=== PATIENT | female | born 1945 | race Caucasian/White ===

== ENCOUNTER → 2016-11-05 | Outpatient (CLI) | payer MEDICARE ==
[2015-10-19 08:27] VITALS: BP 138/85
[~2016-11-05] MED LIST: ATOR40TA59 PO; LISI10TA2 PO; MELO15TA23 PO; METF500T PO; METO-239 PO; SPIR25TA3 PO; TRAM50TA PO; VITA100022 PO
--- NOTE | 2016-11-05 16:38 | CARD ---
APPROVED REPORT EXAM: Two-dimensional and M-mode echocardiogram with Doppler and color Doppler. Other Information Quality : Average Rhythm : NSR with ectopy INDICATION Fatigue Congestive Heart Failure 2D DIMENSIONS RVDd2.4 (2.9-3.5cm)Left Atrium(2D)4.3 (1.6-4.0cm) IVSd0.9 (0.7-1.1cm)Aortic Root(2D)3.0 (2.0-3.7cm) LVDd5.1 (3.9-5.9cm)LVOT Diameter2.0 (1.8-2.4cm) PWd1.0 (0.7-1.1cm)LVDs4.4 (2.5-4.0cm) SV33.9 mlLVEF(%)40.0 (>50%) Aortic Valve AoV Peak Raymundo.108.4cm/sAoV VTI23.7cm AO Peak GR.4.7mmHgLVOT Peak Raymundo.74.5cm/s LVOT VTI 18.34cmAO Mean GR.3mmHg GALI (VMAX)2.03kd2SVX (VTI)2.50cm2 Mitral Valve MV E Ahuxycwf14.8cm/sMV DECEL WIFG774gl MV A Pqrothsj27.6cm/sMV E Mean Gr.2mmHg MV RLJ30grG/A Ratio1.0 MV A Cduqesus493iiDEH (PHT)4.02cm2 TDI E/Lateral E'8.7E/Medial E'13.8 Tricuspid Valve TR P. Aibeihhc061fp/sRAP JQVKIFFO7dhXj TR Peak Gr.89cnFrKHZU94pcDy Pulmonary Vein S1 Ddglkzwr94.8cm/sD2 Mquahvmp05.9cm/s LEFT VENTRICLE The left ventricle is normal size. There is normal left ventricular wall thickness. Left ventricle sy stolic function is mildly impaired. The Ejection Fraction is 40%. Septal motion consistent with post- operative state. Tissue Doppler imaging reveals moderate left ventricular diastolic dysfunction. Ther e is no ventricular septal defect visualized. RIGHT VENTRICLE The right ventricle is normal size. The right ventricular systolic function is normal. ATRIA The left atrium is borderline dilated. The right atrium size is normal. The interatrial septum is int act with no evidence for an atrial septal defect or patent foramen ovale as noted on 2-D or Doppler i maging. AORTIC VALVE The aortic valve is calcified but opens well. The aortic valve is trileaflet. Doppler and Color Flow revealed no significant aortic regurgitation. There is no significant aortic valvular stenosis. MITRAL VALVE Mitral annular calcification is mild. There is no mitral valve stenosis. Doppler and Color Flow revea led mild mitral regurgitation. TRICUSPID VALVE The tricuspid valve is not well visualized. Doppler and Color Flow revealed mild tricuspid regurgitat ion. The PA pressure was estimated at 33 mmHg. There is no tricuspid valve stenosis. PULMONIC VALVE The pulmonic valve is not well visualized. Doppler and Color Flow revealed no pulmonic valvular regur gitation. There is no pulmonic valvular stenosis. GREAT VESSELS The aortic root is normal in size. Normal pulmonary venous flow (Doppler). The IVC is normal in size and collapses >50% with inspiration. PERICARDIAL EFFUSION There is no evidence of significant pericardial effusion. Critical Notification Critical Value: No <Conclusion> Left ventricle systolic function is mildly impaired. The Ejection Fraction is 40%. The left atrium is borderline dilated. The right atrium size is normal. The aortic valve is calcified but opens well. The aortic valve is trileaflet. Doppler and Color Flow revealed mild mitral regurgitation. Mitral annular calcification is mild. Doppler and Color Flow revealed mild tricuspid regurgitation. The PA pressure was estimated at 33 mmHg. The pulmonic valve is not well visualized. There is no evidence of significant pericardial effusion.
== END | disposition home or self-care (01) ==
LOC: ECHO 13:37
PROVIDERS: ATTEND Internal Medicine Cardiovascular Disease
DX: I08.1 Rheumatic disorders of both mitral and tricuspid valves (principal); I50.9 Heart failure, unspecified; I25.10 Atherosclerotic heart disease of native coronary artery without angina pectoris; R53.83 Other fatigue; R53.1 Weakness; Z86.79 Personal history of other diseases of the circulatory system; Z95.1 Presence of aortocoronary bypass graft
CPT/HCPCS: 93306

== ENCOUNTER → 2017-03-10 | Outpatient (CLI) | payer MEDICARE ==
[2017-03-10] MEDS: IOHEXOL 300 MG/ML 100ML VIAL. IV ×2 (09:05)
[2017-03-10] MEDS: IOHEXOL 240 MG/ML 50ML VIAL. PO ×2 (09:05)
== END | disposition home or self-care (01) ==
LOC: NM 07:22
DX: C79.51 Secondary malignant neoplasm of bone (principal); I70.0 Atherosclerosis of aorta; K57.30 Diverticulosis of large intestine without perforation or abscess without bleeding; I10 Essential (primary) hypertension; R91.8 Other nonspecific abnormal finding of lung field; R91.1 Solitary pulmonary nodule; Z85.3 Personal history of malignant neoplasm of breast; Z87.891 Personal history of nicotine dependence
CPT/HCPCS: 71260; 74177; 78306; 96374; A9503; Q9966; Q9967

== ENCOUNTER → 2017-05-25 | Outpatient (CLI) | payer MEDICARE | END | disposition home or self-care (01) | LOC: US 13:13 | DX: M79.89 Other specified soft tissue disorders (principal) | CPT/HCPCS: 93971 ==

== ENCOUNTER → 2017-11-05 | Outpatient (CLI) | payer MEDICARE ==
[2015-10-19 08:27] VITALS: BP 138/85
[~2017-11-05] MED LIST changes: +HYDR-2766 PO; +IOHEXOL 240 MG/ML 50ML VIAL. PO ONE; +IOHEXOL 300 MG/ML 100ML VIAL. IV ONE; +LETR2.5T18 PO; +PANT40TA5 PO; -SPIR25TA3 PO; +SPIR25TA5 PO
--- NOTE | 2017-11-05 16:06 | KCIC ---
Bone densitometry 11/05/2017 10:00 AM Indication: Long-term aromatase inhibitor use. History of osseous metastasis. Breast cancer. . Comparison Study: CT of the abdomen and pelvis March 10, 2017 Discussion: Bone Densitometry was performed with dual photon absorption of the lumbar spine and left proximal femur Lumbar Spine: Bone average density is 1.526 g/cm2 for L1-L4. T-Score is 4.4. (Note that prior imaging studies demonstrate multifocal sclerotic metastasis within the lumbar spine. This could falsely elevated measurement of bone mineral density. Left femoral neck: Bone average density is 1.037g/cm2. T-Score is 0.8. IMPRESSION: Normal bone mineral density measurements. Measurements of the lumbar spine may be falsely elevated as described above. Note: Definitions established by the World Health Organization: Normal: T-score is -1.0 or above. Osteopenia: T-score is between -1.0 and -2.5. Osteoporosis: T-score is -2.5 or below. Electronically signed by: Gianluca Miranda MD (11/05/2017 4:02 PM) [id number]
--- NOTE | 2017-11-05 16:41 | KCIC ---
CT chest abdomen pelvis without contrast Indication: Metastatic breast cancer Technique: Noncontrast CT imaging was performed of the chest, abdomen, pelvis, multiplanar reconstruction images submitted. Oral contrast was given. One or more of the following individualized dose reduction techniques were utilized for this examination: 1. Automated exposure control 2. Adjustment of the mA and/or kV according to patient size 3. Use of iterative reconstruction technique. Contrast: None-patient declined further attempts to obtain intravenous access after first IV failed. Comparison: March 10, 2017 CHEST: Findings: There is again coronary calcification. There has been median sternotomy. There is small hiatal hernia mostly containing fat. There is similar size of right pretracheal node about 1.1 cm short axis dimension, some other small mediastinal nodes also similar. No new obvious abnormality is identified of the thyroid gland. There is no new axillary lymphadenopathy. There is no pleural or pericardial effusion or pneumothorax. Major airways are patent. Focus of subsolid left upper lobe density axial images 21 and 22 is unchanged, more solid component about 0.7 cm transverse. Left lower lobe subpleural nodularity axial images 29 up to about 1 cm in size is stable. Another focus of left lower lobe nodularity extending to the pleural surface best seen axial image 30 about 2 about 1.9 cm transverse by 1.5 cm AP is overall similar. 0.7 cm focus of nodularity in the right middle lobe axial image 33 is unchanged. No new lung nodularity is identified. There is scattered plaque of the thoracic aorta. There is multifocal mostly sclerotic appearing bony metastatic disease of the spine most notable such as at T8-L3 as seen previously. There is also some involvement of the ribs. IMPRESSION: 1. Findings are similar to February 2017 exam, similar foci of pulmonary nodularity and unchanged size of somewhat enlarged right pretracheal node. There is again osseous metastatic disease. Abdomen and pelvis: FINDINGS: Evaluation of the abdominal visceral organs is limited without intravenous contrast, no new obvious abnormality of the liver, spleen, pancreas. There is unchanged fullness of the left adrenal gland. There is no renal calculus or hydronephrosis. Gallbladder is present without obvious intraluminal abnormality by CT. Bowel is not dilated. There is no free air or free fluid. There is no new significant lymphadenopathy. There is colonic diverticulosis greatest of the sigmoid colon without associated inflammatory change. There is no new significant inguinal lymphadenopathy. There is plaque of the abdominal aorta, slightly relatively ectatic more distal abdominal aorta about 2.8 cm. There is degree of stenosis of the more distal abdominal aorta due to plaque, also likely significant stenosis near the origin of the right common iliac artery. There is multilevel lumbar facet hypertrophic change. There are again findings of osseous metastatic disease. Degree of compression deformity superiorly of L5, L2, L1 is similar. IMPRESSION: 1. Findings are overall stable compared with February 2017 exam allowing for no intravenous contrast. There is unchanged mild fullness of the left adrenal gland. There are again findings of osseous metastatic disease. 2. There is likely more significant stenosis near the right celiac artery origin, also stenosis of the disc abdominal aorta and also relative ectasia of the distal abdominal aorta. Electronically signed by: Gregor Tinajero MD (11/05/2017 4:37 PM) [facility]
== END | disposition home or self-care (01) ==
LOC: KCIC CT 08:19
PROVIDERS: ATTEND Internal Medicine Hematology & Oncology
DX: C78.00 Secondary malignant neoplasm of unspecified lung (principal); I77.811 Abdominal aortic ectasia; K57.30 Diverticulosis of large intestine without perforation or abscess without bleeding; I11.0 Hypertensive heart disease with heart failure; I50.9 Heart failure, unspecified; E11.9 Type 2 diabetes mellitus without complications; E78.5 Hyperlipidemia, unspecified; J44.9 Chronic obstructive pulmonary disease, unspecified; M81.0 Age-related osteoporosis without current pathological fracture; I25.10 Atherosclerotic heart disease of native coronary artery without angina pectoris; Z86.718 Personal history of other venous thrombosis and embolism; Z85.3 Personal history of malignant neoplasm of breast; Z86.79 Personal history of other diseases of the circulatory system; Z87.891 Personal history of nicotine dependence; Z82.49 Family history of ischemic heart disease and other diseases of the circulatory system; Z83.3 Family history of diabetes mellitus
CPT/HCPCS: 71250; 74176; 77080; 82565; Q9966

== ENCOUNTER → 2017-11-30 | Outpatient (CLI) | payer MEDICARE ==
[2015-10-19 08:27] VITALS: BP 138/85
[~2017-11-30] MED LIST changes: +CALC-299 PO; +IOHEXOL 180 MG/ML 10 ML VIAL. ONE; -IOHEXOL 240 MG/ML 50ML VIAL. PO ONE; -IOHEXOL 300 MG/ML 100ML VIAL. IV ONE; +LIDOCAINE 1% PF 2 ML VIAL. ONE; +methylPREDNISolone ACETATE 40 MG/ML VIAL. ONE; +methylPREDNISolone ACETATE 80 MG/ML VIAL. ONE
--- NOTE | 2017-11-30 18:09 | PAIN ---
DATE OF SERVICE: 11/30/2017 INITIAL CONSULTATION FOR PAIN CLINIC CHIEF COMPLAINT: Low back and left lower extremity pain. HISTORY OF PRESENT ILLNESS: This is a 72-year-old female who presents with history of pain in the low back and left lower extremity since about 10/2015. The patient reports she had a compression fracture at that time, also had been diagnosed with breast cancer back in about 2006 and was having fairly consistent followups with bone scans and MRIs of the spine and they found a compression fracture, which was not treated aggressively as it was not significant enough to do a vertebroplasty or kyphoplasty on. The patient has had pain in her low back for at least 2 years now radiating to the left lower extremity, mostly in the posterior gluteus, posterior thigh, posterior calf and posterior lower leg into the foot as well. The patient reports it is worse with standing, walking, changing positions. She states she only walk for about 20 minutes at a time, had to sit down and rest, which did relieve the pain after about 5 minutes. She can get up and start the process again. The patient reports it is better with sitting, lying down, does not awaken her from sleep at night, significantly. The patient reports it does not affect her bowel or bladder control, but does affect her ability to walk. She is not using any assistive devices to ambulate. The patient did have MRI scan of the lumbar spine, most recently dated 11/2016 showing diffuse osseous metastatic disease without acute compression fracture, acute spondylolisthesis, multilevel lumbar spondylosis with at least moderate central spinal canal stenosis at L5-S1, grade 1 anterolisthesis at L5 on S1 with lumbarization of S1 vertebral body resulting in transitional sacral anatomy. The L4-L5 shows diffuse disk bulge with severe bilateral arthrosis, bilateral subarticular zone stenosis and moderate medial bilateral neural foraminal stenosis due to foraminal disk bulging, at L5-S1 shows bilateral facet arthrosis severe as well with mild diffuse disk bulge, moderate right and moderate to severe medial left neural foraminal stenosis. The patient reports no loss of motor function with significant fatigability of the left lower extremity with ambulation. The patient reports a disability rate from 0-10, 10 being the worst, a 10 with family and home responsibilities, recreation, occupation, 1 with social activity, 4 with self care and 0 with life support activities. The patient has tried physical therapy in the past, stretching and strengthening exercises as well as hydrocodone, which does help, but only for about 2-3 hours. PAST MEDICAL HISTORY: Significant for type 2 diabetes, hypertension, shortness of breath, breast cancer and arthritis. PREVIOUS SURGERY: Include left breast tumor excision, coronary artery bypass in 2006 and tubal ligation. CURRENT MEDICATIONS: Include hydrocodone, atorvastatin, lisinopril, Glucophage, metoprolol, calcium, spironolactone and Meloxicam. ALLERGIES: THE PATIENT IS ALLERGIC TO CODEINE. FAMILY HISTORY: Significant for heart disease. SOCIAL HISTORY: The patient does not drink alcohol, does not smoke, does not use any illegal, illicit or recreational drugs. She is with one child, living at home, lives locally in [place], [place]. REVIEW OF SYSTEMS: The patient's review of systems is positive for those items mentioned in history of present illness. All systems reviewed and otherwise negative. It is complete, full and well documented on the patient's chart. PHYSICAL EXAMINATION: VITAL SIGNS: The patient's blood pressure is 161/93, pulse 103, respirations 20, temperature 98.2 degrees Fahrenheit, height is 5 feet 3 inches, weight is 254 pounds. GENERAL: The patient is awake, alert, oriented, appropriate, very pleasant demeanor. HEENT: Head shows normocephalic, atraumatic. Extraocular movements intact and symmetrical. Oral cavity: Mucous membranes moist and pink. Dentition is intact. NECK: Shows anterior throat supple without palpable lymphadenopathy noted. Swallow reflex symmetrical. CHEST: Shows normal on inspection. Breath sounds clear to auscultation bilaterally. HEART: Shows S1, S2 clear. No murmurs auscultated. ABDOMEN: Soft, nontender, nondistended. No palpable organomegaly is noted. No rebound or guarding demonstrated. BACK: Shows spine grossly in the midline. Normal appearing thoracic kyphosis, slight flattening of lumbar lordotic curvature. Lumbar paraspinous muscle shows symmetrical on inspection, on palpation shows some moderate tenderness only diffusely in the bilateral paraspinous musculature, but only diffusely in the low lumbar distribution without radiation, without trigger points, without atrophy, hypertrophy. The patient shows good rotational motion of lumbar spine, both laterally greater than 10 degrees right and left as well as extension greater than 10 degrees, forward flexion 45 degrees without significant pain reported. EXTREMITIES: The patient's lower extremities show deep tendon reflexes at 1+/4 in the patellar and tendo calcaneus tendons are equal. Motor exam is strong with approximately 4 on a scale of 5, but equal and symmetrical dorsiflexion, extension, quadriceps and hamstring flexion. Peripheral pulses are 1+ posterior tibial and dorsalis pedis pulses. No peripheral edema is noted bilaterally. Lower extremities are warm and dry to touch, equal in color and appearance. Straight leg raising noted to be negative bilaterally. Again, Gaenslen's and Tal's maneuvers are negative bilaterally as well. She is able to stand, stand on her toes without difficulty or loss of balance, walks with a slight shuffling gait, does not appear to favor her right or left lower extremity; however, not using any assistive devices to ambulate. The patient's skin shows warm, dry, good turgor. No edema. No sores, rashes or bruising. IMPRESSION: This is a 72-year-old female with, 1. Approximately 2-year history of increasing pain in low back, left lower extremity in a radicular fashion. 2. MRI scan of lumbar spine as noted. 3. History of breast cancer. 4. Hypertension. 5. Diabetes. 6. Arthritis. PLAN: Options were discussed with the patient including conservative medical management, physical therapy, interventional techniques. She would like to pursue interventional techniques. We discussed a lumbar epidural steroid injection using description as well as anatomical models to describe the procedure. Risks were then discussed including, but not limited to bleeding, infection, possibility of epidural hematoma, subsequent neurologic compromise, dural puncture, headaches, spinal cord and/or nerve damage, side effects of steroid medication and poor results regarding pain control. The patient understands and wished to proceed. The patient will return to clinic in approximately 2 weeks for followup. She was counseled on her return appointment, activity level and side effects to be aware of. DIAGNOSES: Lumbar radiculopathy with lumbar spinal stenosis, lumbar degenerative disk disease. PROCEDURE: Lumbar epidural steroid injection, translaminar approach L5-S1 level using C-arm fluoroscopic guidance under sterile prep and drape using local anesthetic. MEDICATION INJECTED: A total of 120 mg Depo-Medrol plus 10 mL of preservative-free normal saline and 2 mL of Isovue for contrast. CONDITION AT DISCHARGE: Stable. The patient tolerated the procedure well, had no complications. ILEANA COON MD DR: JENNIFER/brock JOB#: [id number] / [id number] SNEHA Ferris MD
== END | disposition home or self-care (01) ==
LOC: PNCL 10:00
PROVIDERS: ATTEND Anesthesiology
DX: M51.16 Intervertebral disc disorders with radiculopathy, lumbar region (principal); M48.061 Spinal stenosis, lumbar region without neurogenic claudication; I10 Essential (primary) hypertension; E11.9 Type 2 diabetes mellitus without complications; M19.90 Unspecified osteoarthritis, unspecified site; Z85.3 Personal history of malignant neoplasm of breast; Z98.51 Tubal ligation status; Z95.1 Presence of aortocoronary bypass graft; Z98.890 Other specified postprocedural states; Z79.899 Other long term (current) drug therapy; Z79.84 Long term (current) use of oral hypoglycemic drugs; Z88.5 Allergy status to narcotic agent
CPT/HCPCS: 62323; J1030; J1040; Q9965

== ENCOUNTER → 2018-05-02 | Outpatient (CLI) | payer MEDICARE ==
[2018-02-02 11:00] VITALS: BP 151/69
[~2018-05-02] MED LIST changes: +APIX5TAB PO; +ASPI-630 PO; +CEPH-264 PO; +DIGO125T PO; +DILT180C2 PO; +FEMARA2.5 MG PO; -HYDR-2766 PO; +HYDR-2769 PO; -IOHEXOL 180 MG/ML 10 ML VIAL. ONE; +IOHEXOL 240 MG/ML 50ML VIAL. PO ONE; +IOHEXOL 300 MG/ML 100ML VIAL. IV ONE; -LETR2.5T18 PO; -LIDOCAINE 1% PF 2 ML VIAL. ONE; +METO-247 PO; +SPIR50TA4 PO; +WARF-78 PO; -methylPREDNISolone ACETATE 40 MG/ML VIAL. ONE; -methylPREDNISolone ACETATE 80 MG/ML VIAL. ONE
--- NOTE | 2018-05-02 12:08 | RAD ---
CT of the chest, abdomen and pelvis with contrast, 05/02/2018: History: Follow-up left breast cancer with metastases Multidetector CT imaging was performed following oral and IV administration of contrast. Comparison is made to a study from 11/05/2017. There has been a previous median sternotomy. There is moderate calcific plaquing of the thoracic aorta and its branches including the coronary arteries. There is a mildly prominent right paratracheal lymph node measuring 1.1 cm in short axis dimension. It is of similar size when compared to the previous study. No new mediastinal adenopathy is seen. There is no evidence of axillary or internal mammary adenopathy. There are several linear and groundglass opacities in both lungs, similar to those seen on the previous exam. The most prominent opacity lies posterolaterally in the superior segment of the left lower lobe abutting the pleura. It measures 14-15 mm in greatest diameter and has shown no definite change. There is no evidence of pleural fluid. No hepatic mass is identified. The gallbladder is unremarkable. No pancreatic mass is seen. The spleen is of normal size. A small peripheral low-density lesion in the posterolateral aspect of the right kidney is probably a cyst. The kidneys show no evidence of obstruction. Mild left adrenal thickening appears unchanged. There is moderate calcific plaquing of the abdominal aorta with slight dilatation of the infrarenal aorta which measures 2.8 cm in AP diameter. No abdominal or pelvic adenopathy is seen. Colonic diverticulosis is present, most extensive in the sigmoid region. No paracolonic inflammatory process is seen. The bowel loops are not dilated. No free fluid or free air is evident in the abdomen or pelvis. There are mixed lytic and sclerotic changes in the bones which are most evident in the spine. The majority of these findings appear stable. The lytic component involving the posterior aspect of approximately the T10 vertebral body has worsened slightly. There are also moderate scattered degenerative changes. IMPRESSION: 1. Multifocal mixed lytic and blastic osseous metastatic disease with slight progression at the T10 level as described above. 2. Stable scattered pulmonary opacities and borderline mediastinal adenopathy. 3. Unchanged mild prominence of left adrenal gland. 4. No new abdominal or pelvic abnormality is detected. PQRS Compliance Statement: One or more of the following individualized dose reduction techniques were utilized for this examination: 1. Automated exposure control 2. Adjustment of the mA and/or kV according to patient size 3. Use of iterative reconstruction technique
== END | disposition home or self-care (01) ==
LOC: CT 07:56
PROVIDERS: ATTEND Internal Medicine Hematology & Oncology
DX: C50.912 Malignant neoplasm of unspecified site of left female breast (principal); C78.00 Secondary malignant neoplasm of unspecified lung; C79.51 Secondary malignant neoplasm of bone; K57.30 Diverticulosis of large intestine without perforation or abscess without bleeding; R59.0 Localized enlarged lymph nodes; Z17.0 Estrogen receptor positive status [ER+]
CPT/HCPCS: 71260; 74177; Q9966; Q9967

== ENCOUNTER 2018-06-05 15:22 | Inpatient (IN) | payer MEDICARE ==
[~2018-06-05] VITALS: Ht 160 cm; Wt 65.3 kg
[~2018-06-05 15:22] MED LIST changes: -CEPH-264 PO; -IOHEXOL 240 MG/ML 50ML VIAL. PO ONE; -IOHEXOL 300 MG/ML 100ML VIAL. IV ONE
[2018-06-05] MEDS ORDERED: PROCHLORPERAZINE 10 MG/2 ML VIAL. IV ONE (16:15)
[2018-06-05] MEDS ORDERED: IV NORMAL SALINE 1000ML BAG 1,000 ML IV ONE (16:15)
[2018-06-05 16:21] LABS: BASO % 0 % (0-3); EOS # 0.3 x10^3/uL (0.0-0.7); EOS % 8 % (0-3); HEMATOCRIT 40.3 % (36.0-47.0); HEMOGLOBIN 13.5 g/dL (12.0-15.5); LYMPH # 0.5 x10^3/uL (1.0-4.8); LYMPH % 10 % (24-48); MEAN CORPUSCULAR HEMOGLOBIN 31 pg (25-35); MEAN CORPUSCULAR HGB CONC 34 g/dL (31-37); MEAN CORPUSCULAR VOLUME 94 fL (79-100); MONO # 0.4 x10^3/uL (0.0-1.1); MONO % 9 % (0-9); NEUT # 3.2 x10^3uL (1.8-7.7); NEUT % 73 % (31-73); PLATELET COUNT 231 x10^3/uL (140-400); RED CELL DISTRIBUTION WIDTH 13.8 % (11.5-14.5); WHITE BLOOD COUNT 4.4 x10^3/uL (4.0-11.0)
[2018-06-05 16:27] LABS: BILIRUBIN,URINE MODERATE (NEG); CLARITY,URINE CLOUDY; COLOR,URINE AMBER; NITRITE,URINE NEGATIVE (NEG); PROTEIN,URINE 100 mg/dL (NEG-TRACE)
[2018-06-05 16:31] LABS: CALCIUM 10.2 mg/dL (8.5-10.1); CREATININE 1.2 mg/dL (0.6-1.0); GFR 43.9; POTASSIUM 4.9 mmol/L (3.5-5.1)
[2018-06-05 16:34] LABS: HYALINE CASTS, URINE MANY /HPF
[2018-06-05 16:36] LABS: BACTERIA,URINE FEW /HPF (0-FEW); SQUAMOUS EPITHELIAL CELL,UR MOD /LPF
[2018-06-05 16:37] LABS: ALBUMIN 3.9 g/dL (3.4-5.0); ALBUMIN/GLOBULIN RATIO 1.2 (1.0-1.7); MAGNESIUM 1.4 mg/dL (1.8-2.4); TOTAL BILIRUBIN 0.6 mg/dL (0.2-1.0); TOTAL PROTEIN 7.1 g/dL (6.4-8.2)
[2018-06-05] MEDS ORDERED: FAMOTIDINE 20 MG/2 ML VIAL IVP ONE (17:00)
[2018-06-05] MEDS ORDERED: MAGNESIUM SULFATE 2GM 50 ML IV ONE (17:00)
--- NOTE | 2018-06-05 17:10 | PHYS DOC ---
Past Medical History Past Medical History: CAD, Cancer, High Cholesterol, Hypertension, [place] Past Surgical History: Cancer Surgery, Other Additional Past Surgical Histo: CABG Alcohol Use: None Drug Use: None Adult General Chief Complaint Chief Complaint: WEAKNESS/GENERALIZED HPI HPI Patient is a 72 year old female with history of breast cancer that metastasized to her back presented to ER today for evaluation of nausea, vomiting, weakness since about 3 days ago. Patient had radiation treatment last week. Patient said she could not eat anything, complaint of severe nausea whenever she tried to eat. She also has some epigastric abdominal cramping. Patient denies any chest pain, no trouble breathing. Patient denies any fever. Review of Systems Review of Systems Constitutional: Denies fever or chills [] Eyes: Denies change in visual acuity, redness, or eye pain [] HENT: Denies nasal congestion or sore throat [] Respiratory: Denies cough or shortness of breath [] Cardiovascular: No additional information not addressed in HPI [] GI: Positive for abdominal pain, nausea, vomiting, NO bloody stools or diarrhea [] : Denies dysuria or hematuria [] Musculoskeletal: Denies back pain or joint pain [] Integument: Denies rash or skin lesions [] Neurologic: Denies headache, focal weakness or sensory changes [] Endocrine: Denies polyuria or polydipsia [] All other systems were reviewed and found to be within normal limits, except as documented in this note. Current Medications Current Medications Current Medications Medications (Trade) Dose Ordered Sig/Kandis Start Time Stop Time Status Last Admin Dose Admin Famotidine (Pepcid Vial) 20 mg 1X ONCE 06/05/18 17:00 06/05/18 17:01 DC Magnesium Sulfate 50 ml @ 25 mls/hr 1X ONCE 06/05/18 17:00 06/05/18 18:59 Ondansetron HCl (Zofran) 4 mg PRN Q8HRS PRN 06/05/18 17:15 06/06/18 17:14 Prochlorperazine Edisylate (Compazine) 10 mg 1X ONCE 06/05/18 16:15 06/05/18 16:16 DC 06/05/18 16:52 10 MG Sodium Chloride 1,000 ml @ 100 mls/hr Q10H 06/05/18 17:13 06/06/18 17:12 Allergies Allergies Allergies Coded Allergies Type Severity Reaction Last Updated Verified codeine Allergy Intermediate 10/16/15 Yes Physical Exam Physical Exam Constitutional: Well developed, well nourished, no acute distress, non-toxic appearance. [] HENT: Normocephalic, atraumatic, bilateral external ears normal, oropharynx moist, no oral exudates, nose normal. [] Eyes: PERRLA, EOMI, conjunctiva normal, no discharge. [] Neck: Normal range of motion, no tenderness, supple, no stridor. [] Cardiovascular:Heart rate regular rhythm, no murmur [] Lungs & Thorax: Bilateral breath sounds clear to auscultation [] Abdomen: Bowel sounds normal, soft, no tenderness, no masses, no pulsatile masses. [] Skin: Warm, dry, no erythema, no rash. [] Back: No tenderness, no CVA tenderness. [] Extremities: No tenderness, no cyanosis, no clubbing, ROM intact, no edema. [] Neurologic: Alert and oriented X 3, normal motor function, normal sensory function, no focal deficits noted. [] Psychologic: Affect normal, judgement normal, mood normal. [] Current Patient Data Vital Signs Vital Signs Date Time Temp Pulse Resp B/P (MAP) Pulse Ox O2 Delivery O2 Flow Rate FiO2 06/05/18 15:26 97.8 105 20 144/66 (92) 93 Room Air 97.8 Lab Values Laboratory Tests Test 06/05/18 16:05 06/05/18 16:15 White Blood Count 4.4 x10^3/uL (4.0-11.0) Red Blood Count 4.30 x10^6/uL (3.50-5.40) Hemoglobin 13.5 g/dL (12.0-15.5) Hematocrit 40.3 % (36.0-47.0) Mean Corpuscular Volume 94 fL (79-100) Mean Corpuscular Hemoglobin 31 pg (25-35) Mean Corpuscular Hemoglobin Concent 34 g/dL (31-37) Red Cell Distribution Width 13.8 % (11.5-14.5) Platelet Count 231 x10^3/uL (140-400) Neutrophils (%) (Auto) 73 % (31-73) Lymphocytes (%) (Auto) 10 % (24-48) L Monocytes (%) (Auto) 9 % (0-9) Eosinophils (%) (Auto) 8 % (0-3) H Basophils (%) (Auto) 0 % (0-3) Neutrophils # (Auto) 3.2 x10^3uL (1.8-7.7) Lymphocytes # (Auto) 0.5 x10^3/uL (1.0-4.8) L Monocytes # (Auto) 0.4 x10^3/uL (0.0-1.1) Eosinophils # (Auto) 0.3 x10^3/uL (0.0-0.7) Basophils # (Auto) 0.0 x10^3/uL (0.0-0.2) Sodium Level 137 mmol/L (136-145) Potassium Level 4.9 mmol/L (3.5-5.1) Chloride Level 97 mmol/L (98-107) L Carbon Dioxide Level 29 mmol/L (21-32) Anion Gap 11 (6-14) Blood Urea Nitrogen 25 mg/dL (7-20) H Creatinine 1.2 mg/dL (0.6-1.0) H Estimated GFR (Cockcroft-Gault) 43.9 BUN/Creatinine Ratio 21 (6-20) H Glucose Level 171 mg/dL (70-99) H Calcium Level 10.2 mg/dL (8.5-10.1) H Magnesium Level 1.4 mg/dL (1.8-2.4) L Total Bilirubin 0.6 mg/dL (0.2-1.0) Aspartate Amino Transferase (AST) 23 U/L (15-37) Alanine Aminotransferase (ALT) 39 U/L (14-59) Alkaline Phosphatase 83 U/L (46-116) Troponin I Quantitative < 0.017 ng/mL (0.000-0.055) Total Protein 7.1 g/dL (6.4-8.2) Albumin 3.9 g/dL (3.4-5.0) Albumin/Globulin Ratio 1.2 (1.0-1.7) Lipase 106 U/L (73-393) Urine Collection Type Unknown Urine Color Maria D Urine Clarity Cloudy Urine pH 5.0 Urine Specific [place] >=1.030 Urine Protein 100 mg/dL (NEG-TRACE) Urine Glucose (UA) Negative mg/dL (NEG) Urine Ketones (Stick) Trace mg/dL (NEG) Urine Blood Negative (NEG) Urine Nitrite Negative (NEG) Urine Bilirubin Moderate (NEG) Urine Urobilinogen Dipstick 1.0 mg/dL (0.2 mg/dL) Urine Leukocyte Esterase Moderate (NEG) Urine RBC 1-2 /HPF (0-2) Urine WBC 5-10 /HPF (0-4) Urine Squamous Epithelial Cells Mod /LPF Urine Bacteria Few /HPF (0-FEW) Urine Hyaline Casts Many /HPF Urine Mucus Marked /LPF Laboratory Tests 06/05/18 16:05 Laboratory Tests 06/05/18 16:05 EKG EKG [] Radiology/Procedures Radiology/Procedures [] Course & Med Decision Making Course & Med Decision Making Pertinent Labs and Imaging studies reviewed. (See chart for details) [] Dragon Disclaimer Dragon Disclaimer This electronic medical record was generated, in whole or in part, using a voice recognition dictation system. Departure Departure Impression: Primary Impression: Dehydration Additional Impressions: Nausea & vomiting Breast cancer metastasized to bone Disposition: ADMITTED INPATIENT Admitting Physician: Joyce Cannon Condition: STABLE Referrals: ELLIOTT VALERO MD (PCP) Problem Qualifiers NAKUL MONTEZ DO Jun 05, 2018 17:10
[2018-06-05] MEDS ORDERED: ONDANSETRON PF 4 MG/2 ML VIAL. IV PRN ×2 (17:15→17:45)
[2018-06-05 17:24] LABS: PROTHROMBIN TIME PATIENT 22.6 SEC (11.7-14.0)
[2018-06-05] MEDS ORDERED: CALCIUM CARBONATE 500 MG TAB.CHEW PO PRN (17:45)
[2018-06-05] MEDS ORDERED: ACETAMINOPHEN 500 MG TABLET PO PRN (17:45)
[2018-06-05] MEDS ORDERED: TEMAZEPAM 7.5 MG CAPSULE PO PRN (17:45)
[2018-06-05] MEDS ORDERED: traMADol 50 MG TABLET PO PRN (17:45)
[2018-06-05] MEDS ORDERED: DEXTROSE 50% 25 GM / 50ML DISP.SYRIN. IV PRN (17:45)
[2018-06-05] MEDS ORDERED: PROCHLORPERAZINE 10 MG/2 ML VIAL. IV PRN (17:45)
[2018-06-05] MEDS ORDERED: fentaNYL PF VIAL 100 MCG/2 ML VIAL IV PRN (17:45)
[2018-06-05] MEDS ORDERED: cloNIDine HCL 0.1 MG TABLET PO PRN (17:45)
[2018-06-05 18:32] VITALS: BP 143/65
--- NOTE | 2018-06-05 19:55 | NUR ---
The patient, ENDY YEUNG, 72 y/o, F admitted by KALPANA ALONSO MD, was given written information regarding hospital policies, unit procedures and contact persons. Valuables were checked and left in patients room with patient.
[2018-06-05] MEDS: HYDROcodone/APAP 10/325 1 TAB TABLET PO PRN (20:39)
[2018-06-05] MEDS: IV NORMAL SALINE 1000ML BAG 1,000 ML IV SCH (20:40)
[2018-06-05 23:00] VITALS: BP 149/69
[2018-06-06 03:00] VITALS: BP 147/71
[2018-06-06] MEDS: IV NORMAL SALINE 1000ML BAG 1,000 ML IV SCH ×2 (03:13→12:44)
[2018-06-06] MEDS: HYDROcodone/APAP 10/325 1 TAB TABLET PO PRN ×3 (03:28→16:15)
[2018-06-06 07:00] VITALS: BP 141/71
--- NOTE | 2018-06-06 07:26 | EKG ---
[facility] [address] [place] [address] Test Date: 2018-06-05 Test Time: 15:41:42 Pat Name: ENDY YEUNG Department: Room: [facility] Gender: F Finisher Machine: : [id number] Requested By: NAKUL MONTEZ Order Number: [id number] Reading MD: Gerald Guajardo Measurements Intervals Thomas Rate: 114 P: 37 WA: 146 QRS: -20 QRSD: 76 T: 116 QT: 318 QTc: 441 Interpretive Statements SINUS TACHYCARDIA VENTRICULAR PREMATURE COMPLEX(ES) INTERPOLATED ATRIAL PREMATURE COMPLEX(ES) NONSPECIFIC ST-T WAVE CHANGES. Electronically Signed On 06-08-2018 17:41:19 CDT by Gerald Guajardo
[2018-06-06] MEDS ORDERED: PANTOPRAZOLE 40 MG TABLET.DR. PO SCH (07:30)
[2018-06-06] MEDS: INSULIN LISPRO 300 UNITS/3 ML INSULN.PEN. SQ SCH ×3 (08:00→16:21)
[2018-06-06] MEDS ORDERED: metFORMIN 500 MG TABLET PO SCH (08:00)
[2018-06-06] MEDS ORDERED: DIGOXIN 125 MCG TABLET. PO SCH (09:00)
[2018-06-06] MEDS ORDERED: NON FORMULARY ITEM (Letrozole (Femara) 2.5 MG) PO SCH (09:00)
[2018-06-06] MEDS ORDERED: LISINOPRIL 10 MG TABLET PO SCH (09:00)
[2018-06-06] MEDS ORDERED: ATORVASTATIN CALCIUM 40 MG TABLET. PO SCH (09:00)
[2018-06-06] MEDS ORDERED: METOPROLOL SUCC 24HR ER 100 MG TAB.ER.24H. PO SCH (09:00)
[2018-06-06] MEDS ORDERED: SPIRONOLACTONE 25 MG TABLET PO SCH (09:00)
[2018-06-06 10:07] LABS: CALCIUM 9.2 mg/dL (8.5-10.1); CREATININE 0.9 mg/dL (0.6-1.0); GFR 61.2; MAGNESIUM 1.7 mg/dL (1.8-2.4); POTASSIUM 4.8 mmol/L (3.5-5.1)
[2018-06-06 10:47] VITALS: BP 132/59
--- NOTE | 2018-06-06 10:50 | PDOC1 ---
History and Physical Date of Admission Date of Admission DATE: 06/06/18 TIME: 10:49 Identification/Chief Complaint Chief Complaint SEEN IN ER ,72 year old female with history of breast cancer that metastasized to her back presented to ER 06/05 for evaluation of nausea, vomiting, weakness since about 3 days ago. Patient had radiation treatment last week. Patient said she could not eat anything, complaint of severe nausea whenever she tried to eat. She also has some epigastric abdominal cramping MG LOW IN ER AND UTI SUSPECTED. Past Medical History Past Medical History Past Medical History Past Medical History Past Medical History: CAD, Cancer, High Cholesterol, Hypertension, DC Past Surgical History: Cancer Surgery, Other Additional Past Surgical Histo: CABG Alcohol Use: None Drug Use: None family hx hyperlipidemia Cardiovascular: HTN, Hyperlipidemia Past Surgical History Past Surgical History: CABG Family History Family History: Hypertension Social History Smoke: No ALCOHOL: none Drugs: None Current Problem List Problem List Problems Medical Problems: (1) Breast cancer metastasized to bone Status: Acute (2) Dehydration Status: Acute (3) Nausea & vomiting Status: Acute Current Medications Current Medications Current Medications Sodium Chloride 1,000 ml @ 1,000 mls/hr 1X ONCE IV Last administered on 06/05/18at 16:52; Start 06/05/18 at 16:15; Stop 06/05/18 at 17:14; Status DC Prochlorperazine Edisylate (Compazine) 10 mg 1X ONCE IV Last administered on 06/05/18at 16:52; Start 06/05/18 at 16:15; Stop 06/05/18 at 16:16; Status DC Magnesium Sulfate 50 ml @ 25 mls/hr 1X ONCE IV Last administered on 06/05/18at 17:42; Start 06/05/18 at 17:00; Stop 06/05/18 at 18:59; Status DC Famotidine (Pepcid Vial) 20 mg 1X ONCE IVP Last administered on 06/05/18at 17:42; Start 06/05/18 at 17:00; Stop 06/05/18 at 17:01; Status DC Ondansetron HCl (Zofran) 4 mg PRN Q8HRS PRN IV NAUSEA/VOMITING; Start 06/05/18 at 17:15; Stop 06/05/18 at 17:40; Status DC Sodium Chloride 1,000 ml @ 100 mls/hr Q10H IV Last administered on 06/06/18 03:13; Start 06/05/18 at 17:13; Stop 06/06/18 at 17:12 Ondansetron HCl (Zofran) 4 mg PRN Q6HRS PRN IV NAUSEA/VOMITING, 1st CHOICE; Start 06/05/18 at 17:45 Prochlorperazine Edisylate (Compazine) 10 mg PRN Q6HRS PRN IV NAUSEA/VOMITING, 2nd CHOICE; Start 06/05/18 at 17:45 Acetaminophen (Tylenol) 500 mg PRN Q6HRS PRN PO MILD PAIN / TEMP; Start 06/05/18 at 17:45 Fentanyl Citrate (Fentanyl 2ml Vial) 50 mcg PRN Q2HR PRN IV SEVERE PAIN Last administered on 06/05/18at 18:08; Start 06/05/18 at 17:45 Tramadol HCl (Ultram) 50 mg PRN Q6HRS PRN PO MILD PAIN; Start 06/05/18 at 17:45 Temazepam (Restoril) 7.5 mg PRN QHS PRN PO INSOMNIA; Start 06/05/18 at 17:45 Clonidine HCl (Catapres) 0.1 mg PRN Q1HR PRN PO HYPERTENSION, > 160/100; Start 06/05/18 at 17:45 Atorvastatin Calcium (Lipitor) 40 mg DAILY PO Last administered on 06/06/18 08:32; Start 06/06/18 at 09:00 Digoxin (Lanoxin) 125 mcg DAILY PO Last administered on 06/06/18 08:33; Start 06/06/18 at 09:00 Acetaminophen/ Hydrocodone Bitart (Lortab 10/325) 1 tab PRN Q6HRS PRN PO MODERATE PAIN Last administered on 06/06/18 09:26; Start 06/05/18 at 17:45 Lisinopril (Prinivil) 10 mg DAILY PO Last administered on 06/06/18 08:33; Start 06/06/18 at 09:00 Metoprolol Succinate (Toprol Xl) 100 mg DAILY PO Last administered on 06/06/18 08:33; Start 06/06/18 at 09:00 Pantoprazole Sodium (Protonix) 40 mg DAILYAC PO Last administered on 4/29/19at 08:32; Start 06/06/18 at 07:30 Diltiazem HCl (Cardizem 24hr Cd) 120 mg DAILY PO Last administered on 06/06/18at 08:33; Start 06/06/18 at 09:00 Non-Formulary Medication (Letrozole (Femara)) 2.5 mg DAILY PO ; Start 06/06/18 at 09:00; Status UNV Metformin HCl (Glucophage) 500 mg DAILYWBKFT PO Last administered on 06/06/18at 08:32; Start 06/06/18 at 08:00 Spironolactone (Aldactone) 50 mg DAILY PO Last administered on 06/06/18at 08:32; Start 06/06/18 at 09:00 Warfarin Sodium (Coumadin) 5 mg DAILY16 PO ; Start 06/06/18 at 16:00 Calcium Carbonate/ Glycine (Tums) 500 mg PRN AFTMEALHC PRN PO INDIGESTION; Start 06/05/18 at 17:45 Insulin Human Lispro (HumaLOG) 0-9 UNITS TIDWMEALS SQ ; Start 06/06/18 at 08:00 Dextrose (Dextrose 50%-Water Syringe) 12.5 gm PRN Q15MIN PRN IV SEE COMMENTS; Start 06/05/18 at 17:45 Warfarin Sodium (Coumadin Per Physician) 1 each PRN DAILY PRN MC SEE COMMENTS; Start 06/05/18 at 19:00 Active Scripts Active Reported Coumadin (Warfarin Sodium) 5 Mg Tablet 5 Mg PO DAILY Spironolactone 50 Mg Tablet 50 Mg PO DAILY Cardizem Cd (Diltiazem Hcl) 180 Mg Cap.er.24h 120 Mg PO DAILY PRN Metoprolol Succinate ( Xl ) (Metoprolol Succinate) 100 Mg Tab.er.24h 1 Tab PO DAILY Digoxin 125 Mcg Tablet 1 Tab PO DAILY Calcium Magnesium + D Tablet (Calcium Carb/Mag Oxide/Vit D3) 1 Each Tablet 1 Each PO Pantoprazole Sodium 40 Mg Tablet.dr 40 Mg PO DAILY Femara (Letrozole) 2.5 Mg Tablet 2.5 Mg PO DAILY Hydrocodone-Apap 10-325 (Hydrocodone Bit/Acetaminophen) 1 Each Tablet 1 Tab PO PRN Q6HRS PRN Atorvastatin Calcium 40 Mg Tablet 40 Mg PO DAILY Lisinopril 10 Mg Tablet 10 Mg PO DAILY Glucophage (Metformin Hcl) 500 Mg Tablet 1 Tab PO DAILY Allergies Allergies: Coded Allergies: codeine (Verified Allergy, Intermediate, 10/16/15) ROS Review of System Review of Systems Review of Systems Constitutional: Denies fever or chills [] Eyes: Denies change in visual acuity, redness, or eye pain [] HENT: Denies nasal congestion or sore throat [] Respiratory: Denies cough or shortness of breath [] Cardiovascular: No additional information not addressed in HPI [] GI: Positive for abdominal pain, nausea, vomiting, NO bloody stools or diarrhea [] : Denies dysuria or hematuria [] Musculoskeletal: Denies back pain or joint pain [] Integument: Denies rash or skin lesions [] Neurologic: Denies headache, focal weakness or sensory changes [] Endocrine: Denies polyuria or polydipsia [] 14 PT systems were reviewed and found to be within normal limits, except as documented Physical Exam Physical Exam Physical Exam Physical Exam Constitutional: Well developed, well nourished, MILD acute distress, non-toxic appearance. [] HENT: Normocephalic, atraumatic, bilateral external ears normal, oropharynx moist, no oral exudates, nose normal. [] Eyes: PERRLA, EOMI, conjunctiva normal, no discharge. [] Neck: Normal range of motion, no tenderness, supple, no stridor. [] Cardiovascular:Heart rate regular rhythm, no murmur [] Lungs & Thorax: Bilateral breath sounds clear to auscultation [] Abdomen: Bowel sounds normal, soft, no tenderness, no masses, no pulsatile masses. [] Skin: Warm, dry, no erythema, no rash. [] Back: No tenderness, no CVA tenderness. [] Extremities: No tenderness, no cyanosis, no clubbing, ROM intact, no edema. [] Neurologic: Alert and oriented X 3, normal motor function, normal sensory function, no focal deficits noted. [] Psychologic: Affect normal, judgement normal, mood normal. [] General: Alert, Oriented X3, Cooperative, mild distress HEENT: Atraumatic, PERRLA Heart: irregularly irregular Breasts: Not examined Abdomen: Soft Rectal Exam: not examined PELVIC: Examination not indicated Extremities: No cyanosis, No edema Neuro: Normal speech, Cranial nerves 3-12 NL Psych/Mental Status: Mental status NL, Mood NL Vitals Vitals Vital Signs Date Time Temp Pulse Resp B/P (MAP) Pulse Ox O2 Delivery O2 Flow Rate FiO2 06/06/18 10:47 97.6 69 20 132/59 (83) 98 Room Air 97.6 Labs Labs Laboratory Tests Test 06/05/18 16:05 06/05/18 16:15 06/05/18 20:42 06/06/18 06:30 White Blood Count 4.4 x10^3/uL (4.0-11.0) Red Blood Count 4.30 x10^6/uL (3.50-5.40) Hemoglobin 13.5 g/dL (12.0-15.5) Hematocrit 40.3 % (36.0-47.0) Mean Corpuscular Volume 94 fL (79-100) Mean Corpuscular Hemoglobin 31 pg (25-35) Mean Corpuscular Hemoglobin Concent 34 g/dL (31-37) Red Cell Distribution Width 13.8 % (11.5-14.5) Platelet Count 231 x10^3/uL (140-400) Neutrophils (%) (Auto) 73 % (31-73) Lymphocytes (%) (Auto) 10 % (24-48) Monocytes (%) (Auto) 9 % (0-9) Eosinophils (%) (Auto) 8 % (0-3) Basophils (%) (Auto) 0 % (0-3) Neutrophils # (Auto) 3.2 x10^3uL (1.8-7.7) Lymphocytes # (Auto) 0.5 x10^3/uL (1.0-4.8) Monocytes # (Auto) 0.4 x10^3/uL (0.0-1.1) Eosinophils # (Auto) 0.3 x10^3/uL (0.0-0.7) Basophils # (Auto) 0.0 x10^3/uL (0.0-0.2) Prothrombin Time 22.6 SEC (11.7-14.0) Prothromb Time International Ratio 2.0 (0.8-1.1) Activated Partial Thromboplast Time 26 SEC (24-38) Sodium Level 137 mmol/L (136-145) Potassium Level 4.9 mmol/L (3.5-5.1) Chloride Level 97 mmol/L (98-107) Carbon Dioxide Level 29 mmol/L (21-32) Anion Gap 11 (6-14) Blood Urea Nitrogen 25 mg/dL (7-20) Creatinine 1.2 mg/dL (0.6-1.0) Estimated GFR (Cockcroft-Gault) 43.9 BUN/Creatinine Ratio 21 (6-20) Glucose Level 171 mg/dL (70-99) Calcium Level 10.2 mg/dL (8.5-10.1) Magnesium Level 1.4 mg/dL (1.8-2.4) Total Bilirubin 0.6 mg/dL (0.2-1.0) Aspartate Amino Transf (AST/SGOT) 23 U/L (15-37) Alanine Aminotransferase (ALT/SGPT) 39 U/L (14-59) Alkaline Phosphatase 83 U/L (46-116) Troponin I Quantitative < 0.017 ng/mL (0.000-0.055) Total Protein 7.1 g/dL (6.4-8.2) Albumin 3.9 g/dL (3.4-5.0) Albumin/Globulin Ratio 1.2 (1.0-1.7) Lipase 106 U/L (73-393) Urine Collection Type Unknown Urine Color Maria D Urine Clarity Cloudy Urine pH 5.0 Urine Specific [place] >=1.030 Urine Protein 100 mg/dL (NEG-TRACE) Urine Glucose (UA) Negative mg/dL (NEG) Urine Ketones (Stick) Trace mg/dL (NEG) Urine Blood Negative (NEG) Urine Nitrite Negative (NEG) Urine Bilirubin Moderate (NEG) Urine Urobilinogen Dipstick 1.0 mg/dL (0.2 mg/dL) Urine Leukocyte Esterase Moderate (NEG) Urine RBC 1-2 /HPF (0-2) Urine WBC 5-10 /HPF (0-4) Urine Squamous Epithelial Cells Mod /LPF Urine Bacteria Few /HPF (0-FEW) Urine Hyaline Casts Many /HPF Urine Mucus Marked /LPF Glucose (Fingerstick) 111 mg/dL (70-99) 133 mg/dL (70-99) Test 06/06/18 09:50 Sodium Level 137 mmol/L (136-145) Potassium Level 4.8 mmol/L (3.5-5.1) Chloride Level 102 mmol/L (98-107) Carbon Dioxide Level 27 mmol/L (21-32) Anion Gap 8 (6-14) Blood Urea Nitrogen 17 mg/dL (7-20) Creatinine 0.9 mg/dL (0.6-1.0) Estimated GFR (Cockcroft-Gault) 61.2 Glucose Level 175 mg/dL (70-99) Calcium Level 9.2 mg/dL (8.5-10.1) Magnesium Level 1.7 mg/dL (1.8-2.4) Laboratory Tests Test 06/05/18 16:05 06/05/18 16:15 06/05/18 20:42 06/06/18 06:30 White Blood Count 4.4 x10^3/uL (4.0-11.0) Red Blood Count 4.30 x10^6/uL (3.50-5.40) Hemoglobin 13.5 g/dL (12.0-15.5) Hematocrit 40.3 % (36.0-47.0) Mean Corpuscular Volume 94 fL (79-100) Mean Corpuscular Hemoglobin 31 pg (25-35) Mean Corpuscular Hemoglobin Concent 34 g/dL (31-37) Red Cell Distribution Width 13.8 % (11.5-14.5) Platelet Count 231 x10^3/uL (140-400) Neutrophils (%) (Auto) 73 % (31-73) Lymphocytes (%) (Auto) 10 % (24-48) Monocytes (%) (Auto) 9 % (0-9) Eosinophils (%) (Auto) 8 % (0-3) Basophils (%) (Auto) 0 % (0-3) Neutrophils # (Auto) 3.2 x10^3uL (1.8-7.7) Lymphocytes # (Auto) 0.5 x10^3/uL (1.0-4.8) Monocytes # (Auto) 0.4 x10^3/uL (0.0-1.1) Eosinophils # (Auto) 0.3 x10^3/uL (0.0-0.7) Basophils # (Auto) 0.0 x10^3/uL (0.0-0.2) Prothrombin Time 22.6 SEC (11.7-14.0) Prothromb Time International Ratio 2.0 (0.8-1.1) Activated Partial Thromboplast Time 26 SEC (24-38) Sodium Level 137 mmol/L (136-145) Potassium Level 4.9 mmol/L (3.5-5.1) Chloride Level 97 mmol/L (98-107) Carbon Dioxide Level 29 mmol/L (21-32) Anion Gap 11 (6-14) Blood Urea Nitrogen 25 mg/dL (7-20) Creatinine 1.2 mg/dL (0.6-1.0) Estimated GFR (Cockcroft-Gault) 43.9 BUN/Creatinine Ratio 21 (6-20) Glucose Level 171 mg/dL (70-99) Calcium Level 10.2 mg/dL (8.5-10.1) Magnesium Level 1.4 mg/dL (1.8-2.4) Total Bilirubin 0.6 mg/dL (0.2-1.0) Aspartate Amino Transf (AST/SGOT) 23 U/L (15-37) Alanine Aminotransferase (ALT/SGPT) 39 U/L (14-59) Alkaline Phosphatase 83 U/L (46-116) Troponin I Quantitative < 0.017 ng/mL (0.000-0.055) Total Protein 7.1 g/dL (6.4-8.2) Albumin 3.9 g/dL (3.4-5.0) Albumin/Globulin Ratio 1.2 (1.0-1.7) Lipase 106 U/L (73-393) Urine Collection Type Unknown Urine Color Maria D Urine Clarity Cloudy Urine pH 5.0 Urine Specific [place] >=1.030 Urine Protein 100 mg/dL (NEG-TRACE) Urine Glucose (UA) Negative mg/dL (NEG) Urine Ketones (Stick) Trace mg/dL (NEG) Urine Blood Negative (NEG) Urine Nitrite Negative (NEG) Urine Bilirubin Moderate (NEG) Urine Urobilinogen Dipstick 1.0 mg/dL (0.2 mg/dL) Urine Leukocyte Esterase Moderate (NEG) Urine RBC 1-2 /HPF (0-2) Urine WBC 5-10 /HPF (0-4) Urine Squamous Epithelial Cells Mod /LPF Urine Bacteria Few /HPF (0-FEW) Urine Hyaline Casts Many /HPF Urine Mucus Marked /LPF Glucose (Fingerstick) 111 mg/dL (70-99) 133 mg/dL (70-99) Test 06/06/18 09:50 Sodium Level 137 mmol/L (136-145) Potassium Level 4.8 mmol/L (3.5-5.1) Chloride Level 102 mmol/L (98-107) Carbon Dioxide Level 27 mmol/L (21-32) Anion Gap 8 (6-14) Blood Urea Nitrogen 17 mg/dL (7-20) Creatinine 0.9 mg/dL (0.6-1.0) Estimated GFR (Cockcroft-Gault) 61.2 Glucose Level 175 mg/dL (70-99) Calcium Level 9.2 mg/dL (8.5-10.1) Magnesium Level 1.7 mg/dL (1.8-2.4) Images Images Bone, pelvic bone lesion, core biopsy: - METASTATIC MODERATELY DIFFERENTIATED ADENOCARCINOMA. COMMENT: Sections of the pelvic bone lesion core biopsy reveal a segment of bone in which there are areas of replacement of bone by a metastatic malignant epithelial neoplasm. The malignant cells form tubules and are also present in solid nests and cords. The tumor cells have modest amounts of pale eosinophilic and focally vacuolated cytoplasm. The tumor cells possess enlarged, rounded to ovoid nuclei containing a distinct nucleolus. The tumor is associated with a sclerotic stromal response. A controlled panel of immunohistochemical stains is obtained and yields the following results: CK7: strongly positive in the tumor cells [employer] PROJECT MANAGER-225: strongly positive in the tumor cells GCD-FP-15: focal faint positivity in the tumor cells TTF-1: negative in the tumor cells CK20: negative in the tumor cells The immunohistochemical staining pattern of the tumor in this case is consistent with a metastatic moderately differentiated breast carcinoma. The tumor present in this current case is similar to that seen in this patient's left breast specimen from 2007 ([id number]), which has been re-reviewed. Estrogen and progesterone markers have been ordered to be performed by image analysis. The results will be issued separately. Dr. Jordan has also reviewed this case and he agrees with the diagnosis. The findings in this case were discussed with Dr. Elissa Alvarenga on 10/23/15. (ALONZOM:ROMI:all:mgtelly; d/t: 10/23/2015) PROCEDURE REPORT (Order Date: 10/23/2015 00:00) INTERPRETATION: Quantitative image analysis was performed on block A1. Please see next page for scanned image of results. PATHOLOGIST: Malina Narvaez M.D. REPORT ELECTRONICALLY SIGNED BY: Malina Narvaez M.D. STATUS: REG CLI ORD. PHYSICIAN: LAZARO DIAMOND MD REASON: MALIGNANT NEOPLASM OF LEFT BREAST, METS TO LUNG AND BONES PROCEDURE: CT CHEST ABD PELVIS W/CONTRAST CT of the chest, abdomen and pelvis with contrast, 05/02/2018: History: Follow-up left breast cancer with metastases Multidetector CT imaging was performed following oral and IV administration of contrast. Comparison is made to a study from 11/05/2017. There has been a previous median sternotomy. There is moderate calcific plaquing of the thoracic aorta and its branches including the coronary arteries. There is a mildly prominent right paratracheal lymph node measuring 1.1 cm in short axis dimension. It is of similar size when compared to the previous study. No new mediastinal adenopathy is seen. There is no evidence of axillary or internal mammary adenopathy. There are several linear and groundglass opacities in both lungs, similar to those seen on the previous exam. The most prominent opacity lies posterolaterally in the superior segment of the left lower lobe abutting the pleura. It measures 14-15 mm in greatest diameter and has shown no definite change. There is no evidence of pleural fluid. No hepatic mass is identified. The gallbladder is unremarkable. No pancreatic mass is seen. The spleen is of normal size. A small peripheral low-density lesion in the posterolateral aspect of the right kidney is probably a cyst. The kidneys show no evidence of obstruction. Mild left adrenal thickening appears unchanged. There is moderate calcific plaquing of the abdominal aorta with slight dilatation of the infrarenal aorta which measures 2.8 cm in AP diameter. No abdominal or pelvic adenopathy is seen. Colonic diverticulosis is present, most extensive in the sigmoid region. No paracolonic inflammatory process is seen. The bowel loops are not dilated. No free fluid or free air is evident in the abdomen or pelvis. There are mixed lytic and sclerotic changes in the bones which are most evident in the spine. The majority of these findings appear stable. The lytic component involving the posterior aspect of approximately the T10 vertebral body has worsened slightly. There are also moderate scattered degenerative changes. IMPRESSION: 1. Multifocal mixed lytic and blastic osseous metastatic disease with slight progression at the T10 level as described above. 2. Stable scattered pulmonary opacities and borderline mediastinal adenopathy. 3. Unchanged mild prominence of left adrenal gland. 4. No new abdominal or pelvic abnormality is detected. PQRS Compliance Statement: One or more of the following individualized dose reduction techniques were utilized for this examination: 1. Automated exposure control 2. Adjustment of the mA and/or kV according to patient size 3. Use of iterative reconstruction technique DICTATED and SIGNED BY: ROLAN CERNA MD DATE: 05/02/18 1132 VTE Prophylaxis Ordered VTE Prophylaxis Devices: Yes VTE Pharmacological Prophylaxi: Yes Assessment/Plan Assessment/Plan IMPRESSION: 1. Multifocal mixed lytic and blastic osseous metastatic disease with slight progression at the T10 level 2. Stable scattered pulmonary opacities and borderline mediastinal adenopathy. 3. Unchanged mild prominence of left adrenal gland. 4. INTRACTABLE NAUSEA AND VOMITING 5. METASTATIC MODERATELY DIFFERENTIATED ADENOCARCINOMA. , BREAST PRIMARY 6. HX A-FIB ON WARFARIN 7. UTI 8. DEHYDRATION 9. GENERALIZED WEAKNESS 10. ON CT 04/26 Colonic diverticulosis is present, most extensive in the sigmoid region. No paracolonic inflammatory process WAS seen. The bowel loops are not dilated. No free fluid or free air is evident in the abdomen or pelvis. PLAN ADMIT IV FLUID SUPPORT GI CONSULT ONCOLOGY CONSULT EMPERIC IV ANTIBIOTICS IV ZOFRAN 4 MG Q 4 HRS PRN PT/OT URINE CULTURE KUB CLEAR LIQUIDS MINOO ZAPATA MD Jun 06, 2018 10:50
[2018-06-06] MEDS ORDERED: cefTRIAXone IV Push 1 GM VIAL. IVP SCH (12:30)
--- NOTE | 2018-06-06 13:20 | PDOC ---
Provider Note Provider Note 72 yo woman with dx of stage III breast carcinoma 2006 with osseous met disease dx 2015. She was undergoing palliative radiation to T8 to L5. 9 of 10 treatments received as of 06/03/2018. Beginning 06/02 she was developing progressive GI upset and abdominal pain that progressed over the weekend with overall sense of feeling very cold. Was noted to be hypomagnesemic with Mg = 1.4. Given Mg replacement and IVF. Now back to baseline. No nausea,vomiting or diarrhea. Overall back pain has significantly improved since beginning treatment. Treatment related nausea was well controlled with Compazine. Lab 06/05 Hb 13.5 WBC 4.4K Plat 231K Chem 06/06 Mg 1.7 o/w all WNL. Impression: Likely viral enteritis. Hypomagnesemia chronic by patient report. Metastatic breast carcinoma with good response to radiation thus far. Anticipate DC this afternoon. Will resume treatment for last planned fraction of radiation on 06/07/2018. Discussed with patient, daughter and Dr. Bell. GLENNY ANDERSON MD Jun 06, 2018 13:20
--- NOTE | 2018-06-06 13:46 | RAD ---
EXAM: Abdomen acute complete. HISTORY: Nausea and vomiting. COMPARISON: None. FINDINGS: A frontal view of the chest and frontal upright and supine views of the abdomen are obtained. There is no infiltrate, pleural effusion or pneumothorax. There is a prominent cardiac silhouette, a component of which is due to portable technique. There is evidence of prior CABG. There are nonspecific air-filled loops of bowel throughout the abdomen. There is no evidence of obstruction. There is no free air. IMPRESSION: 1. No acute pulmonary finding. Note is made that small nodular opacities within both lungs demonstrated on the recent CT are not well seen radiographically. Please review the recent CT report for characterization of these findings. 2. Nonobstructive bowel gas pattern. Electronically signed by: Beth Castellanos MD (06/06/2018 1:43 PM) [id number]
--- NOTE | 2018-06-06 14:28 | PDOC2 ---
GI CONSULT Reason For Consult: Intractable vomiting HPI: HPI: 72 y/o female w/ metastatic breast cancer who just ate a hamburger and tells me she was told she could be discharged today. Callao ill on w/ "stomach trouble" but was able to make it to radiation. On Wednesday, she had a stomachache (belching, flatus, upper abdomen felt "hard like acid reflux if I hilda had it") w/ chills. No vomiting. No diarrhea or constipation - normal stool daily (except none yet today). No dysphagia. No hematochezia or melena. No weight loss. H/o GERD she thinks - was started on pantoprazole ~10 years ago after heart surgery. No previous EGD or colonoscopy. Diverticulosis on past imaging. No GB, liver, pancreas, or PUD history. No NSAIDs though on hydrocodone for chronic back pain and Warfarin for h/o A Fib and DVT. PMH: PMH: metastatic breast cancer, CAD, GA, HTN, HLD, A Fib, DM, DVT CABG, mastectomy, chemo/rad FH: Family History: No pertinent hx Social History: Smoke: Quit ALCOHOL: none Drugs: None ROS: GEN: +chills HEENT: Denies blurred vision, sore throat CV: Denies chest pain RESP: Denies shortness of air, cough GI: Per HPI : Denies hematuria, dysuria ENDO: Denies weight changes NEURO: Denies confusion, dizziness MSK: +back pain SKIN: Denies jaundice, pruritus Vitals: Vitals: Vital Signs Date Time Temp Pulse Resp B/P (MAP) Pulse Ox O2 Delivery O2 Flow Rate FiO2 06/06/18 10:47 97.6 69 20 132/59 (83) 98 Room Air 97.6 Labs: Labs: Laboratory Tests Test 06/05/18 16:05 06/05/18 16:15 06/05/18 20:42 06/06/18 06:30 White Blood Count 4.4 x10^3/uL (4.0-11.0) Red Blood Count 4.30 x10^6/uL (3.50-5.40) Hemoglobin 13.5 g/dL (12.0-15.5) Hematocrit 40.3 % (36.0-47.0) Mean Corpuscular Volume 94 fL (79-100) Mean Corpuscular Hemoglobin 31 pg (25-35) Mean Corpuscular Hemoglobin Concent 34 g/dL (31-37) Red Cell Distribution Width 13.8 % (11.5-14.5) Platelet Count 231 x10^3/uL (140-400) Neutrophils (%) (Auto) 73 % (31-73) Lymphocytes (%) (Auto) 10 % (24-48) Monocytes (%) (Auto) 9 % (0-9) Eosinophils (%) (Auto) 8 % (0-3) Basophils (%) (Auto) 0 % (0-3) Neutrophils # (Auto) 3.2 x10^3uL (1.8-7.7) Lymphocytes # (Auto) 0.5 x10^3/uL (1.0-4.8) Monocytes # (Auto) 0.4 x10^3/uL (0.0-1.1) Eosinophils # (Auto) 0.3 x10^3/uL (0.0-0.7) Basophils # (Auto) 0.0 x10^3/uL (0.0-0.2) Prothrombin Time 22.6 SEC (11.7-14.0) Prothromb Time International Ratio 2.0 (0.8-1.1) Activated Partial Thromboplast Time 26 SEC (24-38) Sodium Level 137 mmol/L (136-145) Potassium Level 4.9 mmol/L (3.5-5.1) Chloride Level 97 mmol/L (98-107) Carbon Dioxide Level 29 mmol/L (21-32) Anion Gap 11 (6-14) Blood Urea Nitrogen 25 mg/dL (7-20) Creatinine 1.2 mg/dL (0.6-1.0) Estimated GFR (Cockcroft-Gault) 43.9 BUN/Creatinine Ratio 21 (6-20) Glucose Level 171 mg/dL (70-99) Calcium Level 10.2 mg/dL (8.5-10.1) Magnesium Level 1.4 mg/dL (1.8-2.4) Total Bilirubin 0.6 mg/dL (0.2-1.0) Aspartate Amino Transf (AST/SGOT) 23 U/L (15-37) Alanine Aminotransferase (ALT/SGPT) 39 U/L (14-59) Alkaline Phosphatase 83 U/L (46-116) Troponin I Quantitative < 0.017 ng/mL (0.000-0.055) Total Protein 7.1 g/dL (6.4-8.2) Albumin 3.9 g/dL (3.4-5.0) Albumin/Globulin Ratio 1.2 (1.0-1.7) Lipase 106 U/L (73-393) Urine Collection Type Unknown Urine Color Maria D Urine Clarity Cloudy Urine pH 5.0 Urine Specific [place] >=1.030 Urine Protein 100 mg/dL (NEG-TRACE) Urine Glucose (UA) Negative mg/dL (NEG) Urine Ketones (Stick) Trace mg/dL (NEG) Urine Blood Negative (NEG) Urine Nitrite Negative (NEG) Urine Bilirubin Moderate (NEG) Urine Urobilinogen Dipstick 1.0 mg/dL (0.2 mg/dL) Urine Leukocyte Esterase Moderate (NEG) Urine RBC 1-2 /HPF (0-2) Urine WBC 5-10 /HPF (0-4) Urine Squamous Epithelial Cells Mod /LPF Urine Bacteria Few /HPF (0-FEW) Urine Hyaline Casts Many /HPF Urine Mucus Marked /LPF Glucose (Fingerstick) 111 mg/dL (70-99) 133 mg/dL (70-99) Test 06/06/18 09:50 06/06/18 11:09 Sodium Level 137 mmol/L (136-145) Potassium Level 4.8 mmol/L (3.5-5.1) Chloride Level 102 mmol/L (98-107) Carbon Dioxide Level 27 mmol/L (21-32) Anion Gap 8 (6-14) Blood Urea Nitrogen 17 mg/dL (7-20) Creatinine 0.9 mg/dL (0.6-1.0) Estimated GFR (Cockcroft-Gault) 61.2 Glucose Level 175 mg/dL (70-99) Calcium Level 9.2 mg/dL (8.5-10.1) Magnesium Level 1.7 mg/dL (1.8-2.4) Glucose (Fingerstick) 138 mg/dL (70-99) Allergies: Coded Allergies: codeine (Verified Allergy, Intermediate, 10/16/15) Medications: Current Medications Medications (Trade) Dose Ordered Sig/Kandis Route PRN Reason Start Time Stop Time Status Last Admin Dose Admin Sodium Chloride 1,000 ml @ 1,000 mls/hr 1X ONCE IV 06/05/18 16:15 06/05/18 17:14 DC 06/05/18 16:52 Prochlorperazine Edisylate (Compazine) 10 mg 1X ONCE IV 06/05/18 16:15 06/05/18 16:16 DC 06/05/18 16:52 Magnesium Sulfate 50 ml @ 25 mls/hr 1X ONCE IV 06/05/18 17:00 06/05/18 18:59 DC 06/05/18 17:42 Famotidine (Pepcid Vial) 20 mg 1X ONCE IVP 06/05/18 17:00 06/05/18 17:01 DC 06/05/18 17:42 Sodium Chloride 1,000 ml @ 100 mls/hr Q10H IV 06/05/18 17:13 06/06/18 17:12 06/06/18 03:13 Fentanyl Citrate (Fentanyl 2ml Vial) 50 mcg PRN Q2HR PRN IV SEVERE PAIN 06/05/18 17:45 06/05/18 18:08 Atorvastatin Calcium (Lipitor) 40 mg DAILY PO 06/06/18 09:00 06/06/18 08:32 Digoxin (Lanoxin) 125 mcg DAILY PO 06/06/18 09:00 06/06/18 08:33 Acetaminophen/ Hydrocodone Bitart (Lortab 10/325) 1 tab PRN Q6HRS PRN PO SEVERE PAIN 06/05/18 17:45 06/06/18 09:26 Lisinopril (Prinivil) 10 mg DAILY PO 06/06/18 09:00 06/06/18 08:33 Metoprolol Succinate (Toprol Xl) 100 mg DAILY PO 06/06/18 09:00 06/06/18 08:33 Pantoprazole Sodium (Protonix) 40 mg DAILYAC PO 06/06/18 07:30 06/06/18 08:32 Diltiazem HCl (Cardizem 24hr Cd) 120 mg DAILY PO 06/06/18 09:00 06/06/18 08:33 Metformin HCl (Glucophage) 500 mg DAILYWBKFT PO 06/06/18 08:00 06/06/18 08:32 Spironolactone (Aldactone) 50 mg DAILY PO 06/06/18 09:00 06/06/18 08:32 Warfarin Sodium (Coumadin Per Physician) 1 each PRN DAILY PRN MC SEE COMMENTS 06/05/18 19:00 06/06/18 13:16 Ceftriaxone Sodium (Rocephin) 1 gm Q24H IVP 06/06/18 12:30 06/06/18 12:47 Imaging: Imaging: [facility] 06/06 IMPRESSION: 1. No acute pulmonary finding. Note is made that small nodular opacities within both lungs demonstrated on the recent CT are not well seen radiographically. Please review the recent CT report for characterization of these findings. 2. Nonobstructive bowel gas pattern. PE: GEN: NAD HEENT: Atraumatic, PERRL LUNGS: CTAB HEART: RRR ABD: NABS, full/large but S/ND/NT, EXTREMITY: No edema SKIN: No rashes, no jaundice NEURO/PSYCH: A & O 3 A/P: A/P: Metastatic breast cancer Dyspepsia, abd pain - resolved ?h/o GERD - on PPI x 10 years, no previous EGD CRC screen - none Diverticulosis Chronic back pain - on hydrocodone H/o A Fib, CAD, and DVT - on Warfarin -- DC per primary. Consider outpt EGD and colonoscopy. DWAYNE MUSTAFA Jun 06, 2018 14:28
[2018-06-06 15:00] VITALS: BP 132/63
[2018-06-06] MEDS ORDERED: WARFARIN 5 MG TABLET. PO SCH (16:00)
--- NOTE | 2018-06-06 16:16 | PDOC3 ---
Discharge Summary Date of Admission: Jun 05, 2018 Date of Discharge: Jun 06, 2018 Follow-Up: 1-2 days Admitting Diagnosis comment: VTE Prophylaxis Ordered VTE Prophylaxis Devices: Yes VTE Pharmacological Prophylaxi: Yes discharge dx ========= Assessment/Plan IMPRESSION: 1. Multifocal mixed lytic and blastic osseous metastatic disease with slight progression at the T10 level 2. Stable scattered pulmonary opacities and borderline mediastinal adenopathy. 3. Unchanged mild prominence of left adrenal gland. 4. INTRACTABLE NAUSEA AND VOMITING 5. METASTATIC MODERATELY DIFFERENTIATED ADENOCARCINOMA. , BREAST PRIMARY 6. HX A-FIB ON WARFARIN 7. UTI 8. DEHYDRATION 9. GENERALIZED WEAKNESS 10. ON CT 04/26 Colonic diverticulosis is present, most extensive in the sigmoid region. No paracolonic inflammatory process WAS seen. The bowel loops are not dilated. No free fluid or free air is evident in the abdomen or pelvis. PLAN ADMIT d/c today IV FLUID SUPPORT GI CONSULT ok with d/c today ONCOLOGY CONSULT EMPERIC IV ANTIBIOTICS IV ZOFRAN 4 MG Q 4 HRS PRN PT/OT URINE CULTURE KUB CLEAR LIQUIDS PROCEDURE: ACUTE ABDOMEN SERIES EXAM: Abdomen acute complete. HISTORY: Nausea and vomiting. COMPARISON: None. FINDINGS: A frontal view of the chest and frontal upright and supine views of the abdomen are obtained. There is no infiltrate, pleural effusion or pneumothorax. There is a prominent cardiac silhouette, a component of which is due to portable technique. There is evidence of prior CABG. There are nonspecific air-filled loops of bowel throughout the abdomen. There is no evidence of obstruction. There is no free air. IMPRESSION: 1. No acute pulmonary finding. Note is made that small nodular opacities within both lungs demonstrated on the recent CT are not well seen radiographically. Please review the recent CT report for characterization of these findings. 2. Nonobstructive bowel gas pattern. Electronically signed by: Beth Castellanos MD (06/06/2018 1:43 PM) [facility] FINAL DIAGNOSIS Problems Medical Problems: (1) Breast cancer metastasized to bone Status: Acute (2) Dehydration Status: Acute (3) Nausea & vomiting Status: Acute Brief Hospital Course Ms. Real is a 72 old [sex] who presented with [ vomiting] CONDITION AT DISCHARGE: Improved Discharge Medications Current Medications Sodium Chloride 1,000 ml @ 1,000 mls/hr 1X ONCE IV Last administered on 06/05/18at 16:52; Start 06/05/18 at 16:15; Stop 06/05/18 at 17:14; Status DC Prochlorperazine Edisylate (Compazine) 10 mg 1X ONCE IV Last administered on 06/05/18at 16:52; Start 06/05/18 at 16:15; Stop 06/05/18 at 16:16; Status DC Magnesium Sulfate 50 ml @ 25 mls/hr 1X ONCE IV Last administered on 06/05/18at 17:42; Start 06/05/18 at 17:00; Stop 06/05/18 at 18:59; Status DC Famotidine (Pepcid Vial) 20 mg 1X ONCE IVP Last administered on 06/05/18at 17:42; Start 06/05/18 at 17:00; Stop 06/05/18 at 17:01; Status DC Ondansetron HCl (Zofran) 4 mg PRN Q8HRS PRN IV NAUSEA/VOMITING; Start 06/05/18 at 17:15; Stop 06/05/18 at 17:40; Status DC Sodium Chloride 1,000 ml @ 100 mls/hr Q10H IV Last administered on 06/06/18at 03:13; Start 06/05/18 at 17:13; Stop 06/06/18 at 17:12 Ondansetron HCl (Zofran) 4 mg PRN Q6HRS PRN IV NAUSEA/VOMITING, 1st CHOICE; Start 06/05/18 at 17:45 Prochlorperazine Edisylate (Compazine) 10 mg PRN Q6HRS PRN IV NAUSEA/VOMITING, 2nd CHOICE; Start 06/05/18 at 17:45 Acetaminophen (Tylenol) 500 mg PRN Q6HRS PRN PO MILD PAIN / TEMP; Start 06/05/18 at 17:45 Fentanyl Citrate (Fentanyl 2ml Vial) 50 mcg PRN Q2HR PRN IV SEVERE PAIN Last administered on 06/05/18at 18:08; Start 06/05/18 at 17:45 Tramadol HCl (Ultram) 50 mg PRN Q6HRS PRN PO MODERATE PAIN; Start 06/05/18 at 17:45 Temazepam (Restoril) 7.5 mg PRN QHS PRN PO INSOMNIA; Start 06/05/18 at 17:45 Clonidine HCl (Catapres) 0.1 mg PRN Q1HR PRN PO HYPERTENSION, > 160/100; Start 06/05/18 at 17:45 Atorvastatin Calcium (Lipitor) 40 mg DAILY PO Last administered on 06/06/18 08:32; Start 06/06/18 at 09:00 Digoxin (Lanoxin) 125 mcg DAILY PO Last administered on 06/06/18 08:33; Start 06/06/18 at 09:00 Acetaminophen/ Hydrocodone Bitart (Lortab 10/325) 1 tab PRN Q6HRS PRN PO SEVERE PAIN Last administered on 06/06/18 09:26; Start 06/05/18 at 17:45 Lisinopril (Prinivil) 10 mg DAILY PO Last administered on 06/06/18 08:33; Start 06/06/18 at 09:00 Metoprolol Succinate (Toprol Xl) 100 mg DAILY PO Last administered on 06/06/18 08:33; Start 06/06/18 at 09:00 Pantoprazole Sodium (Protonix) 40 mg DAILYAC PO Last administered on 06/06/18 08:32; Start 06/06/18 at 07:30 Diltiazem HCl (Cardizem 24hr Cd) 120 mg DAILY PO Last administered on 06/06/18 08:33; Start 06/06/18 at 09:00 Non-Formulary Medication (Letrozole (Femara)) 2.5 mg DAILY PO ; Start 06/06/18 at 09:00; Status UNV Metformin HCl (Glucophage) 500 mg DAILYWBKFT PO Last administered on 06/06/18 08:32; Start 06/06/18 at 08:00 Spironolactone (Aldactone) 50 mg DAILY PO Last administered on 06/06/18 08:32; Start 06/06/18 at 09:00 Warfarin Sodium (Coumadin) 5 mg DAILY16 PO Last administered on 06/06/18 16:11; Start 06/06/18 at 16:00 Calcium Carbonate/ Glycine (Tums) 500 mg PRN AFTMEALHC PRN PO INDIGESTION; Start 06/05/18 at 17:45 Insulin Human Lispro (HumaLOG) 0-9 UNITS TIDWMEALS SQ ; Start 06/06/18 at 08:00 Dextrose (Dextrose 50%-Water Syringe) 12.5 gm PRN Q15MIN PRN IV SEE COMMENTS; Start 06/05/18 at 17:45 Warfarin Sodium (Coumadin Per Physician) 1 each PRN DAILY PRN MC SEE COMMENTS Last administered on 06/06/18at 13:16; Start 06/05/18 at 19:00 Ceftriaxone Sodium (Rocephin) 1 gm Q24H IVP Last administered on 06/06/18at 12:47; Start 06/06/18 at 12:30 Lactobacillus Rhamnosus (Culturelle) 1 cap BID PO ; Start 06/06/18 at 21:00 Active Scripts Active Reported Coumadin (Warfarin Sodium) 5 Mg Tablet 5 Mg PO DAILY Spironolactone 50 Mg Tablet 50 Mg PO DAILY Cardizem Cd (Diltiazem Hcl) 180 Mg Cap.er.24h 120 Mg PO DAILY PRN Metoprolol Succinate ( Xl ) (Metoprolol Succinate) 100 Mg Tab.er.24h 1 Tab PO DAILY Digoxin 125 Mcg Tablet 1 Tab PO DAILY Calcium Magnesium + D Tablet (Calcium Carb/Mag Oxide/Vit D3) 1 Each Tablet 1 Each PO Pantoprazole Sodium 40 Mg Tablet.dr 40 Mg PO DAILY Femara (Letrozole) 2.5 Mg Tablet 2.5 Mg PO DAILY Hydrocodone-Apap 10-325 (Hydrocodone Bit/Acetaminophen) 1 Each Tablet 1 Tab PO PRN Q6HRS PRN Atorvastatin Calcium 40 Mg Tablet 40 Mg PO DAILY Lisinopril 10 Mg Tablet 10 Mg PO DAILY Glucophage (Metformin Hcl) 500 Mg Tablet 1 Tab PO DAILY Vital Signs Vital Signs Date Time Temp Pulse Resp B/P (MAP) Pulse Ox O2 Delivery O2 Flow Rate FiO2 06/06/18 15:00 97.7 83 20 132/63 (86) 94 Room Air 97.7 Labs Laboratory Tests Test 06/05/18 16:05 06/05/18 16:15 06/05/18 20:42 06/06/18 06:30 White Blood Count 4.4 x10^3/uL (4.0-11.0) Red Blood Count 4.30 x10^6/uL (3.50-5.40) Hemoglobin 13.5 g/dL (12.0-15.5) Hematocrit 40.3 % (36.0-47.0) Mean Corpuscular Volume 94 fL (79-100) Mean Corpuscular Hemoglobin 31 pg (25-35) Mean Corpuscular Hemoglobin Concent 34 g/dL (31-37) Red Cell Distribution Width 13.8 % (11.5-14.5) Platelet Count 231 x10^3/uL (140-400) Neutrophils (%) (Auto) 73 % (31-73) Lymphocytes (%) (Auto) 10 % (24-48) Monocytes (%) (Auto) 9 % (0-9) Eosinophils (%) (Auto) 8 % (0-3) Basophils (%) (Auto) 0 % (0-3) Neutrophils # (Auto) 3.2 x10^3uL (1.8-7.7) Lymphocytes # (Auto) 0.5 x10^3/uL (1.0-4.8) Monocytes # (Auto) 0.4 x10^3/uL (0.0-1.1) Eosinophils # (Auto) 0.3 x10^3/uL (0.0-0.7) Basophils # (Auto) 0.0 x10^3/uL (0.0-0.2) Prothrombin Time 22.6 SEC (11.7-14.0) Prothromb Time International Ratio 2.0 (0.8-1.1) Activated Partial Thromboplast Time 26 SEC (24-38) Sodium Level 137 mmol/L (136-145) Potassium Level 4.9 mmol/L (3.5-5.1) Chloride Level 97 mmol/L (98-107) Carbon Dioxide Level 29 mmol/L (21-32) Anion Gap 11 (6-14) Blood Urea Nitrogen 25 mg/dL (7-20) Creatinine 1.2 mg/dL (0.6-1.0) Estimated GFR (Cockcroft-Gault) 43.9 BUN/Creatinine Ratio 21 (6-20) Glucose Level 171 mg/dL (70-99) Calcium Level 10.2 mg/dL (8.5-10.1) Magnesium Level 1.4 mg/dL (1.8-2.4) Total Bilirubin 0.6 mg/dL (0.2-1.0) Aspartate Amino Transf (AST/SGOT) 23 U/L (15-37) Alanine Aminotransferase (ALT/SGPT) 39 U/L (14-59) Alkaline Phosphatase 83 U/L (46-116) Troponin I Quantitative < 0.017 ng/mL (0.000-0.055) Total Protein 7.1 g/dL (6.4-8.2) Albumin 3.9 g/dL (3.4-5.0) Albumin/Globulin Ratio 1.2 (1.0-1.7) Lipase 106 U/L (73-393) Urine Collection Type Unknown Urine Color Maria D Urine Clarity Cloudy Urine pH 5.0 Urine Specific [place] >=1.030 Urine Protein 100 mg/dL (NEG-TRACE) Urine Glucose (UA) Negative mg/dL (NEG) Urine Ketones (Stick) Trace mg/dL (NEG) Urine Blood Negative (NEG) Urine Nitrite Negative (NEG) Urine Bilirubin Moderate (NEG) Urine Urobilinogen Dipstick 1.0 mg/dL (0.2 mg/dL) Urine Leukocyte Esterase Moderate (NEG) Urine RBC 1-2 /HPF (0-2) Urine WBC 5-10 /HPF (0-4) Urine Squamous Epithelial Cells Mod /LPF Urine Bacteria Few /HPF (0-FEW) Urine Hyaline Casts Many /HPF Urine Mucus Marked /LPF Glucose (Fingerstick) 111 mg/dL (70-99) 133 mg/dL (70-99) Test 06/06/18 09:50 06/06/18 11:09 Sodium Level 137 mmol/L (136-145) Potassium Level 4.8 mmol/L (3.5-5.1) Chloride Level 102 mmol/L (98-107) Carbon Dioxide Level 27 mmol/L (21-32) Anion Gap 8 (6-14) Blood Urea Nitrogen 17 mg/dL (7-20) Creatinine 0.9 mg/dL (0.6-1.0) Estimated GFR (Cockcroft-Gault) 61.2 Glucose Level 175 mg/dL (70-99) Calcium Level 9.2 mg/dL (8.5-10.1) Magnesium Level 1.7 mg/dL (1.8-2.4) Glucose (Fingerstick) 138 mg/dL (70-99) Laboratory Tests Test 06/05/18 20:42 06/06/18 06:30 06/06/18 09:50 06/06/18 11:09 Glucose (Fingerstick) 111 mg/dL (70-99) 133 mg/dL (70-99) 138 mg/dL (70-99) Sodium Level 137 mmol/L (136-145) Potassium Level 4.8 mmol/L (3.5-5.1) Chloride Level 102 mmol/L (98-107) Carbon Dioxide Level 27 mmol/L (21-32) Anion Gap 8 (6-14) Blood Urea Nitrogen 17 mg/dL (7-20) Creatinine 0.9 mg/dL (0.6-1.0) Estimated GFR (Cockcroft-Gault) 61.2 Glucose Level 175 mg/dL (70-99) Calcium Level 9.2 mg/dL (8.5-10.1) Magnesium Level 1.7 mg/dL (1.8-2.4) Allergies Allergies Coded Allergies Type Severity Reaction Last Updated Verified codeine Allergy Intermediate 10/16/15 Yes Disposition/Orders: D/C to Home Patient Instructions d/c planning 36 min MINOO ZAPATA MD Jun 06, 2018 16:15
--- NOTE | 2018-06-06 16:19 | DISCH ---
DISCHARGE INSTRUCTIONS Condition on Discharge Condition on Discharge: Stable Activity After Discharge Activity Instructions for Disc: Activity as tolerated Lifting Instructions after Dis: No heavy lifting, No pulling or pushing Driving Instructions after Dis: Do not drive Diet after Discharge Diet after Discharge: Diabetic No Calorie Level Checks after Discharge Checks after discharge: Check blood press - daily Contacting the DR. after DC Call your doctor for: If your condition worsens MINOO ZAPATA MD Jun 06, 2018 16:19
[2018-06-06] MEDS ORDERED: CEPH-264 PO (16:22)
--- NOTE | 2018-06-06 16:42 | NUR ---
Discharge Note: Pt was given a handwritten prescription for PO Keflex 500mg PO TID for 7 days. ENDY YEUNG Discharge instructions and discharge home medications reviewed with Patient and a copy given. All questions have been answered and understanding verbalized. The following instructions and handouts were given: UTI, Dehydration handouts, Keflex drug information Discontinued lines and drains: 20g PIV from Right AC discontinued without complications. Patient discharged home with self care, pt left via private vehicle with daughters.
[2018-06-06] MEDS ORDERED: LACTOBACILLUS RHAMNOSUS GG 1 CAPSULE. PO SCH (21:00)
== END 2018-06-06 16:46 | disposition home or self-care (01) | DRG 640 ==
LOC: ER 15:22 → 5 NORTH 17:12
PROVIDERS: ADMIT Internal Medicine; ATTEND Internal Medicine
DX: E86.0 Dehydration (principal); N17.0 Acute kidney failure with tubular necrosis; N39.0 Urinary tract infection, site not specified; C79.51 Secondary malignant neoplasm of bone; C50.912 Malignant neoplasm of unspecified site of left female breast; E11.9 Type 2 diabetes mellitus without complications; E78.00 Pure hypercholesterolemia, unspecified; E78.5 Hyperlipidemia, unspecified; E83.42 Hypomagnesemia; G89.29 Other chronic pain; I10 Essential (primary) hypertension; I25.10 Atherosclerotic heart disease of native coronary artery without angina pectoris; I48.91 Unspecified atrial fibrillation; K21.9 Gastro-esophageal reflux disease without esophagitis; K57.30 Diverticulosis of large intestine without perforation or abscess without bleeding; Z79.01 Long term (current) use of anticoagulants; Z82.49 Family history of ischemic heart disease and other diseases of the circulatory system; Z95.1 Presence of aortocoronary bypass graft; Z85.3 Personal history of malignant neoplasm of breast; Z88.8 Allergy status to other drugs, medicaments and biological substances
CPT/HCPCS: 36415; 74022; 80048; 80053; 81001; 82962; 83690; 83735; 84484; 85025; 85610; 85730; 87086; 93005; 96361; 96365; 96375; J0696; J0780; J1815; J3010; J3475; J3490; J7030; 99285-25

== ENCOUNTER → 2019-11-10 | Outpatient (CLI) | payer MEDICARE ==
[2019-03-17 11:00] VITALS: BP 137/77
[~2019-11-10] MED LIST changes: +AMIO200T4 PO; +CEPH-264 PO; +CHOL500050 PO; -DIGO125T PO; +DIGO125T3 PO; +DILT180C29 PO; +FURO40TA4 PO; +METO100T5 PO; -PANT40TA5 PO; +PANT40TA77 PO; +TAMO20TA PO; -WARF-78 PO; +WARF5TAB2 PO
--- NOTE | 2019-11-10 13:30 | CARD ---
MR#: [id number] Date of Study: 11/10/2019 Ordering Physician: SHANTI SEVILLA, Referring Physician: SHANTI SEVILLA, Tech: April Nolan [facility] APPROVED REPORT EXAM: Two-dimensional and M-mode echocardiogram with Doppler and color Doppler. Other Information Quality : Good INDICATION Congestive Heart Failure Surgery/Intervention Pacemaker: Date: 2019 2D DIMENSIONS RVDd2.7 (2.9-3.5cm)Left Atrium(2D)5.4 (1.6-4.0cm) IVSd0.8 (0.7-1.1cm)Aortic Root(2D)3.1 (2.0-3.7cm) LVDd5.4 (3.9-5.9cm)LVOT Diameter2.1 (1.8-2.4cm) PWd0.8 (0.7-1.1cm)LVDs4.4 (2.5-4.0cm) FS (%) 19.3 %SV56.3 ml LVEF(%)39.3 (>50%) Aortic Valve AoV Peak Raymundo.113.3cm/sAoV VTI18.5cm AO Peak GR.5.1mmHgLVOT Peak Raymundo.74.7cm/s AO Mean GR.2mmHgAVA (VMAX)2.35cm2 GALI (VTI)2.70cm2 Tricuspid Valve TR P. [id number] [id number] TR Peak Gr.[id number] LEFT VENTRICLE The Left Ventricle is mildly dilated. There is normal left ventricular wall thickness. Left ventricle systolic function is moderately impaired. EF 30-35% Septal motion consistent with conduction abnorma lity. There is moderate global hypokinesis. Tissue Doppler imaging reveals moderate left ventricular diastolic dysfunction. RIGHT VENTRICLE The right ventricle is mildly dilated. The right ventricular systolic function is normal. There is a pacemaker lead in the right ventricle. ATRIA The left atrium is moderately dilated. The right atrium is moderately dilated. A pacemaker is seen in the right atrium consistent with history. The interatrial septum is intact with no evidence for an a trial septal defect or patent foramen ovale as noted on 2-D or Doppler imaging. AORTIC VALVE The aortic valve is calcified but opens well. Doppler and Color Flow revealed no significant aortic r egurgitation. There is no significant aortic valvular stenosis. MITRAL VALVE The mitral valve is calcified but opens well. Mitral annular calcification is mild. There is no evide nce of mitral valve prolapse. There is no mitral valve stenosis. Doppler and Color-flow revealed mild mitral regurgitation. TRICUSPID VALVE The tricuspid valve is normal in structure and function. Doppler and Color Flow revealed mild tricusp id regurgitation. There is moderate pulmonary hypertension. The PA pressure was estimated at 40 mmHg. There is no tricuspid valve stenosis. PULMONIC VALVE The pulmonary valve is normal in structure and function. Doppler and Color Flow revealed trace to mil d pulmonic valvular regurgitation. There is no pulmonic valvular stenosis. GREAT VESSELS The aortic root is normal in size. The ascending aorta is not well seen. The IVC is dilated and colla pses >50% with inspiration. PERICARDIAL EFFUSION There is no evidence of significant pericardial effusion. Critical Notification Critical Value: No <Conclusion> Left ventricle systolic function is moderately impaired. EF 30-35% Septal motion consistent with conduction abnormality. There is moderate global hypokinesis. There is a pacemaker lead in the right ventricle. Doppler and Color-flow revealed mild mitral regurgitation. Signed by : Shanti Sevilla, Electronically Approved : 11/10/2019 13:30:14
== END | disposition home or self-care (01) ==
LOC: ECHO 12:23
PROVIDERS: ATTEND Internal Medicine Cardiovascular Disease
DX: I08.8 Other rheumatic multiple valve diseases (principal); I50.9 Heart failure, unspecified; Z95.0 Presence of cardiac pacemaker
CPT/HCPCS: 93306

== ENCOUNTER 2021-06-26 17:48 | Inpatient (IN) | payer MEDICARE ==
[~2021-06-26] VITALS: Ht 180.3 cm; Wt 74.0 kg
[~2021-06-26 17:48] MED LIST changes: -AMIO200T4 PO; +AMIO200T53 PO; +LISI10TA16 PO; -LISI10TA2 PO
[2021-06-26 18:57] LABS: HYALINE CASTS, URINE MODERATE /HPF
[2021-06-26 18:59] LABS: BACTERIA,URINE MODERATE /HPF (0-FEW); RBC,URINE 0 /HPF (0-2)
[2021-06-26 19:46] LABS: BASO % 1 % (0-3); EOS % 1 % (0-3); HEMATOCRIT 38.2 % (36.0-47.0); HEMOGLOBIN 12.7 g/dL (12.0-15.5); LYMPH # 0.5 x10^3/uL (1.0-4.8); LYMPH % 8 % (24-48); MEAN CORPUSCULAR HEMOGLOBIN 31 pg (25-35); MEAN CORPUSCULAR HGB CONC 33 g/dL (31-37); MEAN CORPUSCULAR VOLUME 94 fL (79-100); MONO # 0.6 x10^3/uL (0.0-1.1); MONO % 10 % (0-9); NEUT # 4.8 x10^3/uL (1.8-7.7); NEUT % 82 % (31-73); PLATELET COUNT 268 x10^3/uL (140-400); RED BLOOD COUNT 4.07 x10^6/uL (3.50-5.40); RED CELL DISTRIBUTION WIDTH 16.1 % (11.5-14.5); WHITE BLOOD COUNT 5.9 x10^3/uL (4.0-11.0)
[2021-06-26 20:07] LABS: CALCIUM 9.5 mg/dL (8.5-10.1); CREATININE 1.6 mg/dL (0.6-1.0); GFR 31.2; POTASSIUM 4.1 mmol/L (3.5-5.1)
--- NOTE | 2021-06-26 21:27 | PHYS DOC ---
Past Medical History Past Medical History: A-Fib, CAD, Cancer, CHF, High Cholesterol, Hypertension, [place], Other Additional Past Medical Histor: SPINE, LEFT BREAST, LYMPH NODE REMOVAL L, KIDNEY FAILURE Past Surgical History: Cancer Surgery, Pacemaker, Other Additional Past Surgical Histo: CABG Smoking Status: Former Smoker Alcohol Use: None Drug Use: None General Adult EDM: Chief Complaint: MULTIPLE COMPLAINTS HPI: HPI: Patient is a 76 year old female presents with fatigue and altered mental status and dysuria and urgency. Onset 2 days ago. States that she feels confused. No known history of UTIs in the past. History of significant CHF and bilateral lower extremity edema which is chronic in nature. Per daughter she has some shortness of breath with ambulation but this is per baseline. No chest pain currently. No vomiting or diarrhea. No shortness of breath. Has a pacemaker in place and had an ablation done for atrial fibrillation. Review of Systems: Review of Systems: Constitutional: Feels confused Eyes: Denies change in visual acuity. [] HENT: Denies nasal congestion or sore throat. [] Respiratory: Denies cough or shortness of breath. [] Cardiovascular: Denies chest pain or edema. [] GI: Denies abdominal pain, nausea, vomiting, bloody stools or diarrhea. [] : Positive for dysuria and urgency Musculoskeletal: Denies back pain or joint pain. [] Integument: Denies rash. [] Neurologic: Denies headache, focal weakness or sensory changes. [] Endocrine: Denies polyuria or polydipsia. [] Lymphatic: Denies swollen glands. [] Psychiatric: Denies depression or anxiety. [] Heart Score: C/O Chest Pain: No Risk Factors: Risk Factors: DM, Current or recent (<one month) smoker, HTN, HLP, family history of CAD, obesity. Risk Scores: Score 0 - 3: 2.5% MACE over next 6 weeks - Discharge Home Score 4 - 6: 20.3% MACE over next 6 weeks - Admit for Clinical Observation Score 7 - 10: 72.7% MACE over next 6 weeks - Early Invasive Strategies Current Medications: Current Medications Medications (Trade) Dose Ordered Sig/Kandis Start Time Stop Time Status Last Admin Dose Admin Ceftriaxone Sodium (Rocephin) 1 gm 1X ONCE 06/26/21 22:00 06/26/21 22:01 Sodium Chloride 1,000 ml @ 100 mls/hr 1X ONCE 06/26/21 22:00 06/27/21 07:59 Allergies: Allergies: Allergies Coded Allergies Type Severity Reaction Last Updated Verified codeine Allergy Intermediate 10/16/15 Yes Physical Exam: PE: Constitutional: Well developed, well nourished, no acute distress, non-toxic appearance. [] HENT: Normocephalic, atraumatic, bilateral external ears normal, oropharynx moist, no oral exudates, nose normal. [] Eyes: PERRLA, EOMI, conjunctiva normal, no discharge. [] Neck: Normal range of motion, no tenderness, supple, no stridor. [] Cardiovascular:Heart rate regular rhythm, no murmur [] Lungs & Thorax: Bilateral breath sounds clear to auscultation [] Abdomen: Bowel sounds normal, soft, no tenderness, no masses, no pulsatile masses. [] Skin: Warm, dry, no erythema, no rash. [] Back: No tenderness, no CVA tenderness. [] Extremities: No tenderness, no cyanosis, no clubbing, ROM intact, no edema. [] Neurologic: Alert and oriented X 3, normal motor function, normal sensory function, no focal deficits noted. [] Psychologic: Affect normal, judgement normal, mood normal. [] Current Patient Data: Labs: Laboratory Tests Test 06/26/21 18:41 06/26/21 19:30 Urine Collection Type Unknown Urine Color (Auto) Yellow Urine Turbidity Hazy Urine pH (Auto) 5.0 (<5.0-8.0) Urine Specific [place] 1.017 (1.000-1.030) Urine Protein (Auto) Negative mg/dL (Negative) Urine Glucose (Auto)(UA) Negative mg/dL (Negative) Urine Ketones (Auto) Negative mg/dL (Negative) Urine Blood (Auto) Negative (Negative) Urine Nitrite Negative (Negative) Urine Bilirubin (Auto) Small (Negative) Urine Urobilinogen (Auto) 8 mg/dL (Normal) Urine Leukocyte Esterase (Auto) Large (Negative) Urine RBC 0 /HPF (0-2) Urine WBC 5-10 /HPF (0-4) Urine Squamous Epithelial Cells Mod /LPF Urine Bacteria Moderate /HPF (0-FEW) Urine Hyaline Casts Moderate /HPF Urine Mucus Mod /LPF White Blood Count 5.9 x10^3/uL (4.0-11.0) Red Blood Count 4.07 x10^6/uL (3.50-5.40) Hemoglobin 12.7 g/dL (12.0-15.5) Hematocrit 38.2 % (36.0-47.0) Mean Corpuscular Volume 94 fL (79-100) Mean Corpuscular Hemoglobin 31 pg (25-35) Mean Corpuscular Hemoglobin Concent 33 g/dL (31-37) Red Cell Distribution Width 16.1 % (11.5-14.5) H Platelet Count 268 x10^3/uL (140-400) Neutrophils (%) (Auto) 82 % (31-73) H Lymphocytes (%) (Auto) 8 % (24-48) L Monocytes (%) (Auto) 10 % (0-9) H Eosinophils (%) (Auto) 1 % (0-3) Basophils (%) (Auto) 1 % (0-3) Neutrophils # (Auto) 4.8 x10^3/uL (1.8-7.7) Lymphocytes # (Auto) 0.5 x10^3/uL (1.0-4.8) L Monocytes # (Auto) 0.6 x10^3/uL (0.0-1.1) Eosinophils # (Auto) 0.0 x10^3/uL (0.0-0.7) Basophils # (Auto) 0.0 x10^3/uL (0.0-0.2) Sodium Level 130 mmol/L (136-145) L Potassium Level 4.1 mmol/L (3.5-5.1) Chloride Level 90 mmol/L (98-107) L Carbon Dioxide Level 30 mmol/L (21-32) Anion Gap 10 (6-14) Blood Urea Nitrogen 37 mg/dL (7-20) H Creatinine 1.6 mg/dL (0.6-1.0) H Estimated GFR (Cockcroft-Gault) 31.2 Glucose Level 148 mg/dL (70-99) H Calcium Level 9.5 mg/dL (8.5-10.1) Troponin I High Sensitivity 11 ng/L (4-50) Laboratory Tests 06/26/21 19:30 Laboratory Tests 06/26/21 19:30 Vital Signs: Vital Signs Date Time Temp Pulse Resp B/P (MAP) Pulse Ox O2 Delivery O2 Flow Rate FiO2 06/26/21 18:25 98.1 80 20 121/57 (78) 94 Room Air 98.1 EKG: EKG: [] Radiology/Procedures: Radiology/Procedures: [] Course & Med Decision Making: Course & Med Decision Making Pertinent Labs and Imaging studies reviewed. (See chart for details) Patient has hyponatremia, chronic renal failure with BUN/creatinine at baseline and an obvious UTI. While she was in the emergency department she also had a run of possible V. tach. Given all the symptoms and her ongoing feeling of confusion I will admit the patient with fluids and IV antibiotics. Dragon Disclaimer: Dragon Disclaimer: This electronic medical record was generated, in whole or in part, using a voice recognition dictation system. Departure Departure Impression: Primary Impression: UTI (urinary tract infection) Additional Impressions: Altered mental status V tach Disposition: ADMITTED INPATIENT Condition: STABLE Referrals: ELLIOTT VALERO MD (PCP) CATRACHITO MARTIN MD June 26, 2021 21:27
[2021-06-26 21:33] LABS: MAGNESIUM 1.5 mg/dL (1.8-2.4); PHOSPHORUS 4.2 mg/dL (2.6-4.7)
[2021-06-26] MEDS ORDERED: IV NORMAL SALINE 1000ML BAG 1,000 ML IV ONE (22:00)
[2021-06-26] MEDS ORDERED: cefTRIAXone IV Push 1 GM VIAL. IVP ONE (22:00)
[2021-06-26 23:41] VITALS: BP 132/65
--- NOTE | 2021-06-27 01:02 | RAD ---
XR CHEST 1V 06/27/2021 12:47 AM INDICATION: Crackles in the lung saini COMPARISON: 03/13/2019 TECHNIQUE: Portable frontal view of the chest is provided. FINDINGS: The cardiomediastinal silhouette is enlarged, stable. Mild pulmonary vascular congestion. Median ster notomy changes are present. Left chest wall cardiac device is identified with leads projecting over t he right ventricle and coronary sinus. There are no significant pleural effusions. There is no pulmonary vascular congestion. No pneumothora x. No suspicious osseous abnormality. IMPRESSION: Mild pulmonary vascular congestion as may be seen with congestive heart failure. Left chest wall cardiac device is identified. No pneumothorax. Electronically signed by: Chiquis Padilla MD (06/27/2021 1:00 AM) DERICK
[2021-06-27 02:22] VITALS: BP 111/62
--- NOTE | 2021-06-27 03:23 | EKG ---
[facility] [address] [place] [address] Test Date: 2021-06-26 Test Time: 19:46:28 Pat Name: ENDY YEUNG Department: Room: 4 Gender: F Reconcilement Clerk: KYLE : 1945 Requested By: CATRACHITO MARTIN Order Number: [id number] Reading MD: Gerald Guajardo Measurements Intervals [place] Rate: 81 P: SC: QRS: 154 QRSD: 18 T: 152 QT: 452 QTc: 532 Interpretive Statements PROBABLE ACCELERATED JUNCTIONAL RHYTHM PVC ABNORMAL RIGHT AXIS DEVIATION NON SPECIFIC ST-T WAVE CHANGES CONSIDER ANTEROSEPTAL MYOCARDIAL DAMAGE Electronically Signed On 06-27-2021 10:04:01 CDT by Gerald Guajardo
[2021-06-27] MEDS ORDERED: RAMI5CAP50 PO (03:25)
--- NOTE | 2021-06-27 04:31 | EKG ---
[facility] [address] [place] [address] Test Date: 2021-06-26 Test Time: 20:08:50 Pat Name: ENDY YEUNG Department: Room: [facility] Gender: F V Belt Curer: KYLE : 1945 Requested By: CATRACHITO MARTIN Order Number: [id number] Reading MD: Gerald Guajardo Measurements Intervals [place] Rate: 80 P: [place]: QRS: 154 QRSD: 22 T: 129 QT: 348 QTc: 405 Interpretive Statements UNCERTAIN RHYTHM POSSIBLE ACCELERATED JUNCTIONAL RHYTHM Electronically Signed On 06-27-2021 10:02:39 CDT by Gerald Guajardo
[2021-06-27] MEDS ORDERED: FURO40TA4 PO (04:53)
[2021-06-27] MEDS: PANTOPRAZOLE 40 MG TABLET.DR. PO SCH (06:26)
[2021-06-27 07:00] VITALS: BP 132/65
[2021-06-27] MEDS ORDERED: ANTI-COAG MONITOR BY PHARMACY. MC PRN (07:00)
[2021-06-27] MEDS: APIXABAN 5 MG TABLET. PO SCH ×2 (08:10→20:34)
[2021-06-27] MEDS: FUROSEMIDE 40 MG TABLET. PO SCH ×2 (08:10→15:00)
[2021-06-27] MEDS: LISINOPRIL 10 MG TABLET PO SCH (08:11)
[2021-06-27 11:00] VITALS: BP 110/54
--- NOTE | 2021-06-27 13:36 | NUR ---
SS following for discharge planning. SS reviewed pt chart and discussed with pt RN. Pt is from home and is currently on room air. SS will continue to follow for discharge planning.
--- NOTE | 2021-06-27 14:26 | PDOC1 ---
History and Physical Date of Admission Date of Admission DATE: 06/27/21 TIME: 13:59 Identification/Chief Complaint Chief Complaint AMS Source Source: Caregiver, Chart review History of Present Illness History of Present Illness Patient is a 76-year-old female with past medical history diastolic CHF, CAD, A. fib s/p ablation, DM2, who presents to the ED with complaints of dysuria and urgency over the past week, and confusion over the past 2 days. She has not taken any antibiotics prior to evaluation in the ED. labs on admission showed WBC 5.9, sodium 130, BUN 37, creatinine 1.6, CBG 148, magnesium 1.5. Urinalysis showed large leukocyte esterase, nitrate negative, moderate bacteria, 510 WBCs. Chest x-ray showed mild pulmonary vascular congestion. She received 1 g Rocephin and IV fluids in ED. Patient was admitted for further medical management. Past Medical History Cardiovascular: AFIB, CAD, CHF, HTN, ND, Hyperlipidemia Pulmonary: COPD GI: GERD Heme/Onc: Anemia NOS, Cancer, Other Hepatobiliary: No pertinent hx Rheumatologic: No pertinent hx Infectious disease: No pertinent hx Renal/: Chronic renal insuff Endocrine: Diabetes Past Surgical History Past Surgical History: CABG, Mastectomy, Other Family History Family History: Diabetes Social History Smoke: No ALCOHOL: none Drugs: None Current Problem List Problem List Problems Medical Problems: (1) Altered mental status Status: Acute (2) UTI (urinary tract infection) Status: Acute (3) V tach Status: Acute Current Medications Current Medications Current Medications Sodium Chloride 1,000 ml @ 100 mls/hr 1X ONCE IV Last administered on 06/26/21at 21:31; Start 06/26/21 at 22:00; Stop 06/27/21 at 07:59; Status DC Ceftriaxone Sodium (Rocephin) 1 gm 1X ONCE IVP Last administered on 06/26/21at 21:31; Start 06/26/21 at 22:00; Stop 06/26/21 at 22:01; Status DC Apixaban (Eliquis) 5 mg BID PO Last administered on 06/27/21at 08:10; Start 06/27/21 at 09:00 Furosemide (Lasix) 40 mg [id number] PO Last administered on 06/27/21at 08:10; Start 06/27/21 at 09:00 Pantoprazole Sodium (Protonix) 40 mg DAILYAC PO Last administered on 06/27/21at 06:26; Start 06/27/21 at 07:30 Lisinopril (Prinivil) 10 mg DAILY PO Last administered on 06/27/21at 08:11; Start 06/27/21 at 09:00 Oxycodone HCl (Roxicodone) 30 mg PRN Q6HRS PRN PO SEVERE PAIN 7-10 Last administered on 06/27/21at 08:11; Start 06/27/21 at 06:45 Info (Anti-Coagulation Monitoring By Pharmacy) 1 each PRN DAILY PRN MC PER PROT OCOL Last administered on 06/27/21at 06:49; Start 06/27/21 at 07:00 Active Scripts Active Eliquis (Apixaban) 5 Mg Tablet 5 Mg PO BID Reported Furosemide 40 Mg Tablet 40 Mg PO BID Ramipril 5 Mg Capsule 1 Cap PO DAILY 30 Days Toprol Xl (Metoprolol Succinate) 100 Mg Tab.er.24h 150 Mg PO DAILY Vitamin D (Cholecalciferol (Vitamin D3)) 50,000 Unit Capsule 50,000 Unit PO QM Tamoxifen Citrate 20 Mg Tablet 1 Tab PO DAILY 30 Days Furosemide 40 Mg Tablet 1 Tab PO PRN PRN Pantoprazole Sodium (Pantoprazole Sodium) 40 Mg Tablet.dr 40 Mg PO DAILY Hydrocodone-Apap 10-325 (Hydrocodone Bit/Acetaminophen) 1 Each Tablet 1 Tab PO PRN Q6HRS PRN Allergies Allergies: Coded Allergies: codeine (Verified Allergy, Intermediate, 10/16/15) ROS Review of System Unable to obtain due to clinical condition Physical Exam Physical Exam General: Alert, oriented x2, cooperative, no acute distress HEENT: Atraumatic, EOMI Lungs: Bibasilar rales Heart: RRR, no rubs Cardiovascular: S1, S2 Abdomen: Normal bowel sounds, Soft, No tenderness Extremities: +3 bilateral leg edema Skin: No breakdown, No significant lesion Neuro: Sensation intact Psych/Mental Status: Lethargic Vitals Vitals Vital Signs Date Time Temp Pulse Resp B/P (MAP) Pulse Ox O2 Delivery O2 Flow Rate FiO2 06/27/21 11:00 97.8 79 18 110/54 (72) 98 Room Air 97.8 06/27/21 08:00 2.0 Labs Labs Laboratory Tests Test 06/26/21 18:30 06/26/21 18:41 06/26/21 19:30 Phosphorus Level 4.2 mg/dL (2.6-4.7) Magnesium Level 1.5 mg/dL (1.8-2.4) Urine Collection Type Unknown Urine Color (Auto) Yellow Urine Turbidity Hazy Urine pH (Auto) 5.0 (<5.0-8.0) Urine Specific [place] 1.017 (1.000-1.030) Urine Protein (Auto) Negative mg/dL (Negative) Urine Glucose (Auto)(UA) Negative mg/dL (Negative) Urine Ketones (Auto) Negative mg/dL (Negative) Urine Blood (Auto) Negative (Negative) Urine Nitrite Negative (Negative) Urine Bilirubin (Auto) Small (Negative) Urine Urobilinogen (Auto) 8 mg/dL (Normal) Urine Leukocyte Esterase (Auto) Large (Negative) Urine RBC 0 /HPF (0-2) Urine WBC 5-10 /HPF (0-4) Urine Squamous Epithelial Cells Mod /LPF Urine Bacteria Moderate /HPF (0-FEW) Urine Hyaline Casts Moderate /HPF Urine Mucus Mod /LPF White Blood Count 5.9 x10^3/uL (4.0-11.0) Red Blood Count 4.07 x10^6/uL (3.50-5.40) Hemoglobin 12.7 g/dL (12.0-15.5) Hematocrit 38.2 % (36.0-47.0) Mean Corpuscular Volume 94 fL (79-100) Mean Corpuscular Hemoglobin 31 pg (25-35) Mean Corpuscular Hemoglobin Concent 33 g/dL (31-37) Red Cell Distribution Width 16.1 % (11.5-14.5) Platelet Count 268 x10^3/uL (140-400) Neutrophils (%) (Auto) 82 % (31-73) Lymphocytes (%) (Auto) 8 % (24-48) Monocytes (%) (Auto) 10 % (0-9) Eosinophils (%) (Auto) 1 % (0-3) Basophils (%) (Auto) 1 % (0-3) Neutrophils # (Auto) 4.8 x10^3/uL (1.8-7.7) Lymphocytes # (Auto) 0.5 x10^3/uL (1.0-4.8) Monocytes # (Auto) 0.6 x10^3/uL (0.0-1.1) Eosinophils # (Auto) 0.0 x10^3/uL (0.0-0.7) Basophils # (Auto) 0.0 x10^3/uL (0.0-0.2) Sodium Level 130 mmol/L (136-145) Potassium Level 4.1 mmol/L (3.5-5.1) Chloride Level 90 mmol/L (98-107) Carbon Dioxide Level 30 mmol/L (21-32) Anion Gap 10 (6-14) Blood Urea Nitrogen 37 mg/dL (7-20) Creatinine 1.6 mg/dL (0.6-1.0) Estimated GFR (Cockcroft-Gault) 31.2 Glucose Level 148 mg/dL (70-99) Calcium Level 9.5 mg/dL (8.5-10.1) Troponin I High Sensitivity 11 ng/L (4-50) Laboratory Tests Test 06/26/21 18:30 06/26/21 18:41 06/26/21 19:30 Phosphorus Level 4.2 mg/dL (2.6-4.7) Magnesium Level 1.5 mg/dL (1.8-2.4) Urine Collection Type Unknown Urine Color (Auto) Yellow Urine Turbidity Hazy Urine pH (Auto) 5.0 (<5.0-8.0) Urine Specific [place] 1.017 (1.000-1.030) Urine Protein (Auto) Negative mg/dL (Negative) Urine Glucose (Auto)(UA) Negative mg/dL (Negative) Urine Ketones (Auto) Negative mg/dL (Negative) Urine Blood (Auto) Negative (Negative) Urine Nitrite Negative (Negative) Urine Bilirubin (Auto) Small (Negative) Urine Urobilinogen (Auto) 8 mg/dL (Normal) Urine Leukocyte Esterase (Auto) Large (Negative) Urine RBC 0 /HPF (0-2) Urine WBC 5-10 /HPF (0-4) Urine Squamous Epithelial Cells Mod /LPF Urine Bacteria Moderate /HPF (0-FEW) Urine Hyaline Casts Moderate /HPF Urine Mucus Mod /LPF White Blood Count 5.9 x10^3/uL (4.0-11.0) Red Blood Count 4.07 x10^6/uL (3.50-5.40) Hemoglobin 12.7 g/dL (12.0-15.5) Hematocrit 38.2 % (36.0-47.0) Mean Corpuscular Volume 94 fL (79-100) Mean Corpuscular Hemoglobin 31 pg (25-35) Mean Corpuscular Hemoglobin Concent 33 g/dL (31-37) Red Cell Distribution Width 16.1 % (11.5-14.5) Platelet Count 268 x10^3/uL (140-400) Neutrophils (%) (Auto) 82 % (31-73) Lymphocytes (%) (Auto) 8 % (24-48) Monocytes (%) (Auto) 10 % (0-9) Eosinophils (%) (Auto) 1 % (0-3) Basophils (%) (Auto) 1 % (0-3) Neutrophils # (Auto) 4.8 x10^3/uL (1.8-7.7) Lymphocytes # (Auto) 0.5 x10^3/uL (1.0-4.8) Monocytes # (Auto) 0.6 x10^3/uL (0.0-1.1) Eosinophils # (Auto) 0.0 x10^3/uL (0.0-0.7) Basophils # (Auto) 0.0 x10^3/uL (0.0-0.2) Sodium Level 130 mmol/L (136-145) Potassium Level 4.1 mmol/L (3.5-5.1) Chloride Level 90 mmol/L (98-107) Carbon Dioxide Level 30 mmol/L (21-32) Anion Gap 10 (6-14) Blood Urea Nitrogen 37 mg/dL (7-20) Creatinine 1.6 mg/dL (0.6-1.0) Estimated GFR (Cockcroft-Gault) 31.2 Glucose Level 148 mg/dL (70-99) Calcium Level 9.5 mg/dL (8.5-10.1) Troponin I High Sensitivity 11 ng/L (4-50) Images Images PATIENT: ENDY YEUNG ACCOUNT: [id number] : 1945 [facility]: [facility] AGE: 76 SEX: F EXAM STATUS: ADM IN ORD. PHYSICIAN: TRESSA STEWART MD REASON: Crackles in Lung Gutierrez PROCEDURE: PORTABLE CHEST 1V XR CHEST 1V 06/27/2021 12:47 AM INDICATION: Crackles in the lung gutierrez COMPARISON: 03/13/2019 TECHNIQUE: Portable frontal view of the chest is provided. FINDINGS: The cardiomediastinal silhouette is enlarged, stable. Mild pulmonary vascular congestion. Median sternotomy changes are present. Left chest wall cardiac device is identified with leads projecting over the right ventricle and coronary sinus. There are no significant pleural effusions. There is no pulmonary vascular congestion. No pneumothorax. No suspicious osseous abnormality. IMPRESSION: Mild pulmonary vascular congestion as may be seen with congestive heart failure. Left chest wall cardiac device is identified. No pneumothorax. VTE Prophylaxis Ordered VTE Prophylaxis Devices: No VTE Pharmacological Prophylaxi: Yes Assessment/Plan Assessment/Plan AMS Acute cystitis Diastolic CHF Hypomagnesemia CKD 3B DM2 HTN Plan: Patient received Rocephin 1 g in the ED. We will continue treatment with Rocephin 1 g daily and follow urine cultures and sensitivities. Will place consultation to cardiology. 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 Kat. Obtain limited echocardiogram. Echocardiogram from 02/21/2019 showed LV systolic function mildly impaired, EF 45-50%, minimal septal hypokinesis. Resume her home medications FEN - Cardiac diet PPX - Eliquis DNR/surrogate decision maker as her daughter (Laith Griffith) Dispo - inpatient for above Justifications for Admission Other Justification RODOLFO MARRUFO MD June 27, 2021 14:26
[2021-06-27] MEDS ORDERED: ONDANSETRON PF 4 MG/2 ML VIAL. IVP PRN (14:45)
[2021-06-27] MEDS ORDERED: CALCIUM CARBONATE 500 MG TAB.CHEW PO PRN (14:45)
[2021-06-27] MEDS ORDERED: ACETAMINOPHEN 325 MG TABLET. PO PRN (14:45)
[2021-06-27] MEDS ORDERED: MAGNESIUM HYDROXIDE 2,400 MG/30 ML ORAL.SUSP. PO PRN (14:45)
[2021-06-27] MEDS ORDERED: MAG HYDROX/ALUMINUM HYD/SIMETH 30 ML ORAL.SUSP PO PRN (14:45)
[2021-06-27 15:00] VITALS: BP 137/61
[2021-06-27] MEDS ORDERED: DEXTROSE 50% 25 GM / 50ML DISP.SYRIN. IV PRN (15:00)
--- NOTE | 2021-06-27 15:14 | PDOC2 ---
ALBAN BARRIOS [employer] SE[employer]ER 06/27/21 1514: CARDIAC CONSULT DATE OF CONSULT Date of Consult DATE: 06/27/21 TIME: 15:06 REASON FOR CONSULT Reason for Consult: CHF REFERRING PHYSICIAN Referring Physician: Ryan SOURCE Source: Chart review, Patient HISTORY OF PRESENT ILLNESS HISTORY OF PRESENT ILLNESS This is a pleasant 76 yo female admitted for complains of delusion. At times she thinks she is doing something when actually she is not doing anything such as replacing an object. Denies any chest pain or significant SOA. What made her finally come is she just does not have the energy any further and her appetite has been decreased. Denies any dizziness or palpitations. No nausea or vomiting. She has leg edema but no different from her usual state. Also complains of urinary frequency. PAST MEDICAL HISTORY Past Medical History Cardiovascular: AFIB, CAD, CHF, HTN, MA, Hyperlipidemia, cardiomyopathy, Tachy richie syndrome Pulmonary: COPD GI: GERD (hiatal hernia) Heme/Onc: Anemia NOS, Cancer (metastatic breast), Other (LLE DVT) Hepatobiliary: No pertinent hx Musculoskeletal: Osteoarthritis, RLE weakness related to spinal stenosis and sciatica Rheumatologic: No pertinent hx Infectious disease: No pertinent hx ENT: No pertinent hx Renal/: No pertinent hx Endocrine: Diabetes (2) Dermatology: No pertinent hx PAST SURGICAL HISTORY Past Surgical History CABG (x4 2007), Mastectomy (left in 2006), Other (PCI stent 2006) FAMILY HISTORY Family History: Diabetes SOCIAL HISTORY Smoke: Quit ALCOHOL: none Drugs: None Lives: with Family CURRENT MEDICATIONS CURRENT MEDICATIONS Current Medications Medications (Trade) Dose Ordered Sig/Kandis Route PRN Reason Start Time Stop Time Status Last Admin Dose Admin Sodium Chloride 1,000 ml @ 100 mls/hr 1X ONCE IV 06/26/21 22:00 06/27/21 07:59 DC 06/26/21 21:31 Ceftriaxone Sodium (Rocephin) 1 gm 1X ONCE IVP 06/26/21 22:00 06/26/21 22:01 DC 06/26/21 21:31 Apixaban (Eliquis) 5 mg BID PO 06/27/21 09:00 06/27/21 08:10 Furosemide (Lasix) 40 mg BID94 PO 06/27/21 09:00 06/27/21 15:00 Pantoprazole Sodium (Protonix) 40 mg DAILYAC PO 06/27/21 07:30 06/27/21 06:26 Lisinopril (Prinivil) 10 mg DAILY PO 06/27/21 09:00 06/27/21 08:11 Oxycodone HCl (Roxicodone) 30 mg PRN Q6HRS PRN PO SEVERE PAIN 7-10 06/27/21 06:45 06/27/21 15:01 Info (Anti-Coagulation Monitoring By Pharmacy) 1 each PRN DAILY PRN MC PER PROTOCOL 06/27/21 07:00 06/27/21 06:49 ALLERGIES ALLERGIES: Coded Allergies: codeine (Verified Allergy, Intermediate, 10/16/15) ROS Review of System 14 point ROS evaluated with pertinent positives noted per HPI PHYSICAL EXAM General: Alert, Oriented X3, Cooperative, No acute distress HEENT: Atraumatic, Mucous membr. moist/pink Lungs: Other (diminished bases) Heart: Normal S1, Normal S2, Other (2/6 apical murmur, NEON SIGN MAKER pacing) Abdomen: Soft, No tenderness Extremities: No cyanosis, Other (2+ bilateral LE pitting edema) Skin: No breakdown, No significant lesion Neuro: Normal speech, Sensation intact Psych/Mental Status: Mental status NL, Mood NL MUSCULOSKELETAL: Osteoarthritic changes both hands VITALS/I&O VITALS/I&O: Vital Signs Date Time Temp Pulse Resp B/P (MAP) Pulse Ox O2 Delivery O2 Flow Rate FiO2 06/27/21 15:01 98 Nasal Cannula 2.0 06/27/21 11:00 97.8 79 18 110/54 (72) 97.8 I & O 06/26/21 06/26/21 06/27/21 15:00 23:00 07:00 Intake Total 0 ml Output Total 400 ml Balance -400 ml LABS Lab: Laboratory Tests Test 06/26/21 18:30 06/26/21 18:41 06/26/21 19:30 Phosphorus Level 4.2 mg/dL (2.6-4.7) Magnesium Level 1.5 mg/dL (1.8-2.4) L Urine Collection Type Unknown Urine Color (Auto) Yellow Urine Turbidity Hazy Urine pH (Auto) 5.0 (<5.0-8.0) Urine Specific Inlet 1.017 (1.000-1.030) Urine Protein (Auto) Negative mg/dL (Negative) Urine Glucose (Auto)(UA) Negative mg/dL (Negative) Urine Ketones (Auto) Negative mg/dL (Negative) Urine Blood (Auto) Negative (Negative) Urine Nitrite Negative (Negative) Urine Bilirubin (Auto) Small (Negative) Urine Urobilinogen (Auto) 8 mg/dL (Normal) Urine Leukocyte Esterase (Auto) Large (Negative) Urine RBC 0 /HPF (0-2) Urine WBC 5-10 /HPF (0-4) Urine Squamous Epithelial Cells Mod /LPF Urine Bacteria Moderate /HPF (0-FEW) Urine Hyaline Casts Moderate /HPF Urine Mucus Mod /LPF White Blood Count 5.9 x10^3/uL (4.0-11.0) Red Blood Count 4.07 x10^6/uL (3.50-5.40) Hemoglobin 12.7 g/dL (12.0-15.5) Hematocrit 38.2 % (36.0-47.0) Mean Corpuscular Volume 94 fL (79-100) Mean Corpuscular Hemoglobin 31 pg (25-35) Mean Corpuscular Hemoglobin Concent 33 g/dL (31-37) Red Cell Distribution Width 16.1 % (11.5-14.5) H Platelet Count 268 x10^3/uL (140-400) Neutrophils (%) (Auto) 82 % (31-73) H Lymphocytes (%) (Auto) 8 % (24-48) L Monocytes (%) (Auto) 10 % (0-9) H Eosinophils (%) (Auto) 1 % (0-3) Basophils (%) (Auto) 1 % (0-3) Neutrophils # (Auto) 4.8 x10^3/uL (1.8-7.7) Lymphocytes # (Auto) 0.5 x10^3/uL (1.0-4.8) L Monocytes # (Auto) 0.6 x10^3/uL (0.0-1.1) Eosinophils # (Auto) 0.0 x10^3/uL (0.0-0.7) Basophils # (Auto) 0.0 x10^3/uL (0.0-0.2) Sodium Level 130 mmol/L (136-145) L Potassium Level 4.1 mmol/L (3.5-5.1) Chloride Level 90 mmol/L (98-107) L Carbon Dioxide Level 30 mmol/L (21-32) Anion Gap 10 (6-14) Blood Urea Nitrogen 37 mg/dL (7-20) H Creatinine 1.6 mg/dL (0.6-1.0) H Estimated GFR (Cockcroft-Gault) 31.2 Glucose Level 148 mg/dL (70-99) H Calcium Level 9.5 mg/dL (8.5-10.1) Troponin I High Sensitivity 11 ng/L (4-50) Laboratory Tests 06/26/21 19:30 Laboratory Tests 06/26/21 19:30 ECHOCARDIOGRAM ECHOCARDIOGRAM <Conclusion> Left ventricle systolic function is moderately impaired. EF 30-35% Septal motion consistent with conduction abnormality. There is moderate global hypokinesis. There is a pacemaker lead in the right ventricle. Doppler and Color-flow revealed mild mitral regurgitation. DATE: 11/10/19 1323 STRESS TEST STRESS TEST Conclusion 1. No evidence of stress induced EKG changes. 2. Normal perfusion at stress. 3. Rest images obscured by motion/breast attenuation artifact. 4. Normal EF at 51% DATE: 02/17/18 1237 ASSESSMENT/PLAN ASSESSMENT/PLAN 1. Mild acute on chronic systolic CHF: appears compensated 2. ICM; Last known EF at 30-35% appears compensated 3. PAFIB: past CVN. NEON SIGN MAKER pacing 4. UTI 5. NEON SIGN MAKER-P in situ with hx of tachy richie syndrome. Medtronic 5. CAD; remote CABGx4, clinically stable 6. Hypertension; controlled 7. Diabetes, II 8. Hyperlipidemia 9. Metastatic breast CA: no treatment currently follows with [facility]. Reported mets to spine 10. Encephalopathy: has been having delusions and confusion possibly from UTI Recommendations 1. Eliquis for stroke prevention. Continue metoprolol. 2. Continue secondary prevention measures 3. Antibiotics per PCP 4. FLP and statin per level 5. Continue home lasix 6. TTE SHANTI SEVILLA MD 06/27/21 9370: CARDIAC CONSULT ASSESSMENT/PLAN ASSESSMENT/PLAN The patient was seen and interviewed as well as examined at the bedside. The chart was reviewed. The case was discussed. Agree with the plan of care. ALBAN BARRIOS APRN June 27, 2021 15:14 SHANTI SEVILLA MD June 27, 2021 23:45
[2021-06-27] MEDS: cefTRIAXone IV Push 1 GM VIAL. IVP SCH (15:49)
[2021-06-27] MEDS ORDERED: MAGNESIUM SULFATE 2GM 50 ML IV ONE (16:00)
--- NOTE | 2021-06-27 16:54 | CARD ---
MR#: [id number] Date of Study: 06/27/2021 Ordering Physician: ALBAN BARRIOS, Referring Physician: Megan ODE: [facility] APPROVED REPORT EXAM: Two-dimensional and M-mode echocardiogram with Doppler and color Doppler. Other Information Quality : GoodHR: 81bpm Rhythm : NSR INDICATION Dizziness and Vertigo Dyspnea 2D DIMENSIONS RVDd2.5 (2.9-3.5cm)Left Atrium(2D)4.5 (1.6-4.0cm) IVSd0.7 (0.7-1.1cm)Aortic Root(2D)3.0 (2.0-3.7cm) LVDd4.8 (3.9-5.9cm)LVOT Diameter1.8 (1.8-2.4cm) PWd0.8 (0.7-1.1cm)LVDs4.3 (2.5-4.0cm) FS (%) 9.0 %SV20.9 ml Aortic Valve AoV Peak Raymundo.109.4cm/Awilda Peak GR.4.8mmHg LVOT Peak Raymundo.60.7cm/sAVA (VMAX)1.44cm2 Pulmonary Valve PV Peak Anyykybx16.7cm/s Tricuspid Valve TR P. [id number]/sRAP [id number] TR Peak Gr.[id number] LEFT VENTRICLE The left ventricle is normal size. There is normal left ventricular wall thickness. Left ventricular systolic function moderately impaired. The ejection fraction estimated at 30 to 35%. Septal wall paula on consistent with conduction abnormalities. Tissue Doppler imaging reveals moderate left ventricular diastolic dysfunction. No left ventricle thrombus noted on this study. There is no ventricular septa l defect visualized. There is no left ventricular aneurysm. There is no mass noted in the left ventri luis angel. RIGHT VENTRICLE The right ventricle is mildly dilated. There is normal right ventricular wall thickness. Systolic fun ction is moderately reduced. ATRIA The left atrium is moderately dilated. The right atrium is severely dilated. The interatrial septum i s intact with no evidence for an atrial septal defect or patent foramen ovale as noted on 2-D or Dopp ler imaging. AORTIC VALVE The aortic valve is trileaflet. No aortic regurgitation is present. There is no aortic valvular steno sis. There is no aortic valvular vegetation. MITRAL VALVE The mitral valve is normal in structure and function. There is no evidence of mitral valve prolapse. There is no mitral valve stenosis. Doppler and Color-flow revealed mild to moderate mitral regurgitat ion. TRICUSPID VALVE The tricuspid valve is normal in structure and function. Doppler and Color Flow revealed moderate tri cuspid regurgitation. The pulmonary artery systolic pressure is estimated at 32 mmHg. There is no tri cuspid valve prolapse or vegetation. There is no tricuspid valve stenosis. PULMONIC VALVE The pulmonary valve is normal in structure and function. There is no pulmonic valvular regurgitation. There is no pulmonic valvular stenosis. GREAT VESSELS The aortic root is normal in size. The ascending aorta is normal in size. The pulmonary artery is nor mal. The IVC is normal in size and collapses >50% with inspiration. PERICARDIAL EFFUSION There is no pleural effusion. There is no evidence of significant pericardial effusion. Critical Notification Critical Value: No <Conclusion> Left ventricular systolic function moderately impaired. The ejection fraction estimated at 30 to 35%. Septal wall motion consistent with conduction abnormalities. Tissue Doppler imaging reveals moderate left ventricular diastolic dysfunction. Pacer wires noted RA/RV. Mild to moderate mitral regurgitation. Moderate tricuspid regurgitation. The pulmonary artery systolic pressure is estimated at 32 mmHg. There is no evidence of significant pericardial effusion. Signed by : Danny Fay, Electronically Approved : 06/27/2021 16:53:57
[2021-06-27] MEDS: INSULIN LISPRO 300 UNITS/3 ML VIAL. SQ SCH (17:00)
[2021-06-27] MEDS: HYDROcodone/APAP 10/325 1 TAB TABLET PO PRN (17:42)
[2021-06-27 19:17] VITALS: BP 120/70
[2021-06-27 22:09] VITALS: BP 114/56
--- NOTE | 2021-06-28 00:54 | NUR ---
Documentation Error: oxycodone was not pulled and administer at this time. nurse was reviewing patient orders and the medication mar was accidentally click administered. Addendum: 06/28/21 at 0601 by KENROY BONILLA RN RN Nurse was performing the pain reassessment of the 6 medication administration, and nurse must have incorrectly clicked the administration tab , but nurse was performing the reassessment at 0054
[2021-06-28 02:13] LABS: HEMOGLOBIN A1C 6.6 % (4.8-5.6)
[2021-06-28 03:34] VITALS: BP 110/57
[2021-06-28] MEDS: PANTOPRAZOLE 40 MG TABLET.DR. PO SCH (06:14)
[2021-06-28 07:00] VITALS: BP 108/55
[2021-06-28 07:56] LABS: CHOLESTEROL/HDL RATIO 3.4
[2021-06-28] MEDS: INSULIN LISPRO 300 UNITS/3 ML VIAL. SQ SCH ×3 (08:00→17:00)
[2021-06-28] MEDS: APIXABAN 5 MG TABLET. PO SCH ×3 (08:37→20:38)
[2021-06-28] MEDS: FUROSEMIDE 40 MG TABLET. PO SCH ×2 (08:38→17:35)
[2021-06-28] MEDS: METOPROLOL SUCC 24HR ER 50 MG TAB.ER.24H. PO SCH ×2 (08:40→10:50)
--- NOTE | 2021-06-28 09:23 | PDOC ---
PROGRESS NOTES Date of Service: DATE: 06/28/21 TIME: 09:23 Subjective Subjective Feeling better with improvement in dyspnea Objective Objective Vital Signs Date Time Temp Pulse Resp B/P (MAP) Pulse Ox O2 Delivery O2 Flow Rate FiO2 06/28/21 07:00 97.5 83 18 108/55 (72) 97 Nasal Cannula 2.0 97.5 Intake and Output 06/28/21 07:00 Intake Total 540 ml Output Total 200 ml Balance 340 ml Intake Oral 540 ml Output Urine Total 200 ml # Voids 9 # Bowel Movements 1 Physical Exam Abdomen: Soft, No tenderness Heart: Normal S1, Normal S2, Other (2/6 apical murmur, NIGHT TIME NANNY pacing) Extremities: No cyanosis, Other (2+ bilateral LE pitting edema) General: Alert, Oriented X3, Cooperative, No acute distress HEENT: Atraumatic, Mucous membr. moist/pink Lungs: Other (diminished bases) MUSCULOSKELETAL: Osteoarthritic changes both hands Neuro: Normal speech, Sensation intact Psych/Mental Status: Mental status NL, Mood NL Skin: No breakdown, No significant lesion Assessment Assessment 1. Mild acute on chronic systolic CHF: appears better compensated 2. ICM; 2D echo showed EF at 30-35% 3. PAFIB: past CVN. NIGHT TIME NANNY pacing 4. UTI 5. NIGHT TIME NANNY-P in situ with hx of tachy richie syndrome. Medtronic 5. CAD; remote CABGx4, clinically stable 6. Hypertension; controlled 7. Diabetes, II 8. Hyperlipidemia 9. Metastatic breast CA: no treatment currently follows with [facility]. Reported mets to spine 10. Encephalopathy: has been having delusions and confusion possibly from UTI: Improved Recommendations 1. Continue Eliquis for stroke prevention. Continue metoprolol. 2. Continue secondary prevention measures 3. Antibiotics per PCP 4. FLP and statin per level 5. Continue diuretics Plan Plan of Care Problems Medical Problems: (1) Altered mental status Status: Acute (2) UTI (urinary tract infection) Status: Acute (3) V tach Status: Acute Comment Review of Relevant I have reviewed the following items anand (where applicable) has been applied. Labs Laboratory Tests Test 06/27/21 16:45 06/27/21 20:43 06/28/21 06:05 06/28/21 08:17 Glucose (Fingerstick) 133 mg/dL (70-99) 205 mg/dL (70-99) 120 mg/dL (70-99) Triglycerides Level 83 mg/dL (0-150) Cholesterol Level 133 mg/dL (0-200) LDL Cholesterol, Calculated 77 mg/dL (0-100) VLDL Cholesterol, Calculated 17 mg/dL (0-40) Non-HDL Cholesterol Calculated 94 mg/dL (0-129) HDL Cholesterol 39 mg/dL (40-60) Cholesterol/HDL Ratio 3.4 Microbiology 06/26/21 Urine Culture - Final, Complete Medications Current Medications Acetaminophen (Tylenol) 650 mg PRN Q6HRS PRN PO Headaches, Temp > 101.5F; Start 06/27/21 at 14:45 Acetaminophen/ Hydrocodone Bitart (Lortab 10/325) 1 tab PRN Q6HRS PRN PO MODERATE TO SEVERE PAIN Last administered on 06/27/21at 17:42; Start 06/27/21 at 14:30 Al Hydroxide/Mg Hydroxide (Mylanta Plus Xs) 30 ml PRN Q3HRS PRN PO HEARTBURN / GAS; Start 06/27/21 at 14:45 Calcium Carbonate/ Glycine (Tums) 500 mg PRN Q3HRS PRN PO UPSET STOMACH; Start 06/27/21 at 14:45 Ceftriaxone Sodium (Rocephin) 1 gm Q24H IVP Last administered on 06/27/21at 15:49; Start 06/27/21 at 15:00; Stop 06/29/21 at 14:59 Dextrose (Dextrose 50%-Water Syringe) 12.5 gm PRN Q15MIN PRN IV SEE COMMENTS; Start 06/27/21 at 15:00 Insulin Human Lispro (HumaLOG) 0-5 UNITS TIDWMEALS SQ ; Start 06/27/21 at 17:00 Magnesium Hydroxide (Milk Of Magnesia) 2,400 mg PRN Q12HR PRN PO CONSTIPATION; Start 06/27/21 at 14:45 Magnesium Sulfate 50 ml @ 25 mls/hr 1X ONCE IV Last administered on 06/27/21at 15:50; Start 06/27/21 at 16:00; Stop 06/27/21 at 17:59; Status DC Metoprolol Succinate (Toprol Xl) 150 mg DAILY PO ; Start 06/28/21 at 09:00 Ondansetron HCl (Zofran) 4 mg PRN Q6HRS PRN IVP NAUSEA/VOMITING; Start 06/27/21 at 14:45 Vitals/I & O Vital Sign - Last 24 Hours 06/27/21 06/27/21 06/27/21 06/27/21 11:00 15:00 15:01 15:50 Temp 97.8 97.8 Pulse 79 Resp 18 B/P (MAP) 110/54 (72) 137/61 (86) Pulse Ox 98 98 98 O2 Delivery Room Air Nasal Cannula Nasal Cannula O2 Flow Rate 2.0 2.0 06/27/21 06/27/21 06/27/21 06/27/21 17:42 18:22 19:17 20:00 Temp 97.8 97.8 Pulse 88 Resp 18 B/P (MAP) 120/70 (87) Pulse Ox 98 98 99 O2 Delivery Nasal Cannula Nasal Cannula Nasal Cannula Nasal Cannula O2 Flow Rate 2.0 2.0 2.0 2.0 06/27/21 06/27/21 06/27/21 06/28/21 22:09 22:36 23:06 00:54 Temp 98.0 98.0 Pulse 82 Resp 16 B/P (MAP) 114/56 (75) Pulse Ox 99 99 99 99 O2 Delivery Nasal Cannula Nasal Cannula Nasal Cannula Nasal Cannula O2 Flow Rate 2.0 2.0 2.0 2.0 06/28/21 06/28/21 06/28/21 06/28/21 01:24 03:34 06:14 06:44 Temp 97.5 97.5 Pulse 84 Resp 16 20 B/P (MAP) 110/57 (74) Pulse Ox 99 99 99 99 O2 Delivery Nasal Cannula Nasal Cannula Nasal Cannula Nasal Cannula O2 Flow Rate 2.0 2.0 2.0 2.0 06/28/21 07:00 Temp 97.5 97.5 Pulse 83 Resp 18 B/P (MAP) 108/55 (72) Pulse Ox 97 O2 Delivery Nasal Cannula O2 Flow Rate 2.0 Intake and Output 06/27/21 06/27/21 06/28/21 15:00 23:00 07:00 Intake Total 120 ml 420 ml Output Total 200 ml Balance -200 ml 120 ml 420 ml MAHAMED ALVARES MD June 28, 2021 09:23
[2021-06-28] MEDS: HYDROcodone/APAP 10/325 1 TAB TABLET PO PRN ×2 (10:49→19:04)
[2021-06-28 11:00] VITALS: BP 115/66
[2021-06-28 14:36] LABS: BASO # 0.1 x10^3/uL (0.0-0.2); BASO % 1 % (0-3); EOS # 0.1 x10^3/uL (0.0-0.7); EOS % 1 % (0-3); HEMATOCRIT 39.6 % (36.0-47.0); HEMOGLOBIN 12.8 g/dL (12.0-15.5); LYMPH # 0.5 x10^3/uL (1.0-4.8); LYMPH % 8 % (24-48); MEAN CORPUSCULAR HEMOGLOBIN 31 pg (25-35); MEAN CORPUSCULAR HGB CONC 32 g/dL (31-37); MEAN CORPUSCULAR VOLUME 95 fL (79-100); MONO # 0.4 x10^3/uL (0.0-1.1); MONO % 8 % (0-9); NEUT # 4.9 x10^3/uL (1.8-7.7); NEUT % 82 % (31-73); PLATELET COUNT 255 x10^3/uL (140-400); RED BLOOD COUNT 4.17 x10^6/uL (3.50-5.40); RED CELL DISTRIBUTION WIDTH 16.5 % (11.5-14.5)
[2021-06-28 14:56] LABS: ALBUMIN 2.3 g/dL (3.4-5.0); ALBUMIN/GLOBULIN RATIO 0.5 (1.0-1.7); CALCIUM 9.5 mg/dL (8.5-10.1); CREATININE 1.6 mg/dL (0.6-1.0); GFR 31.2; TOTAL BILIRUBIN 0.8 mg/dL (0.2-1.0); TOTAL PROTEIN 6.7 g/dL (6.4-8.2)
[2021-06-28 15:00] VITALS: BP 115/74
[2021-06-28] MEDS: cefTRIAXone IV Push 1 GM VIAL. IVP SCH (15:35)
[2021-06-28] MEDS: LISINOPRIL 10 MG TABLET PO SCH (15:36)
--- NOTE | 2021-06-28 15:43 | RAD ---
EXAMINATION: CT HEAD/BRAIN WO CLINICAL HISTORY: Confusion. History of metastatic breast cancer, evaluate for metastatic lesions. TECHNIQUE: Serial axial images without IV contrast were obtained from the vertex to the foramen magnu m. CT Dose Reduction Employed: One or more of the following individualized dose reduction techniques wer e utilized for this examination: 1. Automated exposure control 2. Adjustment of the mA and/or kV ac cording to patient size 3. Use of iterative reconstruction technique. COMPARISON: MRI brain 10/17/2015 FINDINGS: Acute Change: No evidence of an acute infarct or other acute parenchymal process. Hemorrhage: No evidence of acute intracranial hemorrhage. Mass Lesion/Mass Effect: No evidence of intracranial mass or extraaxial fluid collection. No signific ant mass effect. Chronic Change: Scattered patchy foci of hypoattenuation in the supratentorial white matter, nonspeci fic but likely represents mild microvascular ischemia. Atherosclerotic calcification of the intracran ial portion of the bilateral internal carotid arteries. Parenchyma: Mild generalized volume loss. Ventricles: Ventricular enlargement concordant with degree of parenchymal volume loss. Paranasal Sinuses and Skull: Visualized paranasal sinuses clear. No evidence of destructive osseous l esion in the calvarium. Visualized soft tissues unremarkable. IMPRESSION: No evidence of acute intracranial abnormality. No evidence of intracranial or calvarial metastases, however, evaluation for parenchymal metastases i s significantly limited given lack of intravenous contrast. MRI with and without intravenous contrast could be obtained for further evaluation if indicated. Electronically signed by: Jasen Arias DO (06/28/2021 3:41 PM) [facility]
--- NOTE | 2021-06-28 17:39 | PDOC ---
GENERAL General: Patient examined chart reviewed today is hospital day 3 for this patient with metastatic breast cancer known metastases to her spine admitted from home where she lives with her daughters who serves as her medical DURABLE POWER OF ANAESTHETIC TECHNICIAN. She has been progressively weaker and more confused over the last week or 2. Patient is unaccompanied at bedside this evening. History is received from the patient herself who feels that she is more clear today as well as from review of the medical records. Patient follows with Dr. Levi at [facility] for her metastatic cancer. She tells me that her goals of care are to live the highest quality day she can while she is here and she does not want further treatment. She is not known to have liver metastases. Work-up has revealed an elevated creatinine of 1.6 yesterday we will reassess in the [facility]. Patient has also been found to have acute on chronic systolic congestive heart failure and is undergoing more diuresis currently. Alkaline phosphatase is also significantly elevated at 389. Patient is not known to have liver metastases. We will proceed with an ultrasound of her liver as she does not believe she can lay flat for a CT or MRI. With the IV contrast shortage the CT will be less helpful. We will check ammonia level in the morning. COVID antigen is negative and CT brain is negative. Time spent today is 30 minutes with greater than 50% in counseling and coordination of care most of which in discussion with patient regarding care plan and progress. Problems: (1) Weakness (2) A-fib (3) ARF (acute renal failure) (4) Acute on chronic systolic (congestive) heart failure (5) Metastatic breast cancer (6) Altered mental status VITAL SIGNS Vital Signs/I&O: Vital Signs Date Time Temp Pulse Resp B/P (MAP) Pulse Ox O2 Delivery O2 Flow Rate FiO2 06/28/21 15:36 91 115/74 06/28/21 15:07 18 06/28/21 15:00 97.3 93 Nasal Cannula 2.0 97.3 I & O 06/27/21 06/27/21 06/28/21 15:00 23:00 07:00 Intake Total 120 ml 420 ml Output Total 200 ml Balance -200 ml 120 ml 420 ml In general patient is pleasant alert and oriented x3 no acute distress. She is feeling a lot clearer today HEENT exam is unremarkable for acute abnormality Neck is soft and supple no adenopathy or thyromegaly noted Chest is clear to auscultation Heart S1-S2 normal regular rate and rhythm no murmurs or gallops are noted Abdomen soft nontender nondistended no masses organomegaly noted Extremity exam is unremarkable for acute abnormality ALLERGIES Allergies: Allergies Coded Allergies Type Severity Reaction Last Updated Verified codeine Allergy Intermediate 10/16/15 Yes MEDS Medications: Current Medications Medications (Trade) Dose Ordered Sig/Kandis Start Time Stop Time Status Last Admin Dose Admin Acetaminophen (Tylenol) 650 mg PRN Q6HRS PRN 06/27/21 14:45 Acetaminophen/ Hydrocodone Bitart (Lortab 10/325) 1 tab PRN Q6HRS PRN 06/27/21 14:30 06/28/21 10:49 Al Hydroxide/Mg Hydroxide (Mylanta Plus Xs) 30 ml PRN Q3HRS PRN 06/27/21 14:45 Apixaban (Eliquis) 5 mg BID 06/27/21 09:00 06/27/21 20:34 Calcium Carbonate/ Glycine (Tums) 500 mg PRN Q3HRS PRN 06/27/21 14:45 Ceftriaxone Sodium (Rocephin) 1 gm Q24H 06/27/21 15:00 06/29/21 14:59 06/28/21 15:35 Dextrose (Dextrose 50%-Water Syringe) 12.5 gm PRN Q15MIN PRN 06/27/21 15:00 Furosemide (Lasix) 40 mg [id number] 06/27/21 09:00 06/28/21 08:38 Info (Anti-Coagulation Monitoring By Pharmacy) 1 each PRN DAILY PRN 06/27/21 07:00 06/27/21 06:49 Insulin Human Lispro (HumaLOG) 0-5 UNITS TIDWMEALS 06/27/21 17:00 Lisinopril (Prinivil) 10 mg DAILY 06/27/21 09:00 06/28/21 15:36 Magnesium Hydroxide (Milk Of Magnesia) 2,400 mg PRN Q12HR PRN 06/27/21 14:45 Magnesium Sulfate 50 ml @ 25 mls/hr 1X ONCE 06/27/21 16:00 06/27/21 17:59 DC 06/27/21 15:50 Metoprolol Succinate (Toprol Xl) 150 mg DAILY 06/28/21 09:00 06/28/21 10:50 Ondansetron HCl (Zofran) 4 mg PRN Q6HRS PRN 06/27/21 14:45 Oxycodone HCl (Roxicodone) 30 mg PRN Q6HRS PRN 06/27/21 06:45 06/28/21 14:37 Pantoprazole Sodium (Protonix) 40 mg DAILYAC 06/27/21 07:30 06/28/21 06:14 Sodium Chloride 1,000 ml @ 100 mls/hr 1X ONCE 06/26/21 22:00 06/27/21 07:59 DC 06/26/21 21:31 Current Medications Medications (Trade) Dose Ordered Sig/Kandis Route PRN Reason Start Time Stop Time Status Last Admin Dose Admin Metoprolol Succinate (Toprol Xl) 150 mg DAILY PO 06/28/21 09:00 06/28/21 10:50 LAB Lab: Laboratory Tests Test 06/27/21 20:43 06/28/21 06:05 06/28/21 08:17 06/28/21 11:49 Glucose (Fingerstick) 205 mg/dL (70-99) H 120 mg/dL (70-99) H 143 mg/dL (70-99) H Triglycerides Level 83 mg/dL (0-150) Cholesterol Level 133 mg/dL (0-200) LDL Cholesterol, Calculated 77 mg/dL (0-100) VLDL Cholesterol, Calculated 17 mg/dL (0-40) Non-HDL Cholesterol Calculated 94 mg/dL (0-129) HDL Cholesterol 39 mg/dL (40-60) L Cholesterol/HDL Ratio 3.4 Test 06/28/21 14:20 06/28/21 15:50 06/28/21 16:41 White Blood Count 6.0 x10^3/uL (4.0-11.0) Red Blood Count 4.17 x10^6/uL (3.50-5.40) Hemoglobin 12.8 g/dL (12.0-15.5) Hematocrit 39.6 % (36.0-47.0) Mean Corpuscular Volume 95 fL (79-100) Mean Corpuscular Hemoglobin 31 pg (25-35) Mean Corpuscular Hemoglobin Concent 32 g/dL (31-37) Red Cell Distribution Width 16.5 % (11.5-14.5) H Platelet Count 255 x10^3/uL (140-400) Neutrophils (%) (Auto) 82 % (31-73) H Lymphocytes (%) (Auto) 8 % (24-48) L Monocytes (%) (Auto) 8 % (0-9) Eosinophils (%) (Auto) 1 % (0-3) Basophils (%) (Auto) 1 % (0-3) Neutrophils # (Auto) 4.9 x10^3/uL (1.8-7.7) Lymphocytes # (Auto) 0.5 x10^3/uL (1.0-4.8) L Monocytes # (Auto) 0.4 x10^3/uL (0.0-1.1) Eosinophils # (Auto) 0.1 x10^3/uL (0.0-0.7) Basophils # (Auto) 0.1 x10^3/uL (0.0-0.2) Sodium Level 133 mmol/L (136-145) L Potassium Level 4.0 mmol/L (3.5-5.1) Chloride Level 93 mmol/L (98-107) L Carbon Dioxide Level 28 mmol/L (21-32) Anion Gap 12 (6-14) Blood Urea Nitrogen 40 mg/dL (7-20) H Creatinine 1.6 mg/dL (0.6-1.0) H Estimated GFR (Cockcroft-Gault) 31.2 BUN/Creatinine Ratio 25 (6-20) H Glucose Level 190 mg/dL (70-99) H Calcium Level 9.5 mg/dL (8.5-10.1) Total Bilirubin 0.8 mg/dL (0.2-1.0) Aspartate Amino Transferase (AST) 28 U/L (15-37) Alanine Aminotransferase (ALT) 21 U/L (14-59) Alkaline Phosphatase 389 U/L (46-116) H Total Protein 6.7 g/dL (6.4-8.2) Albumin 2.3 g/dL (3.4-5.0) L Albumin/Globulin Ratio 0.5 (1.0-1.7) L Thyroid Stimulating Hormone (TSH) 2.965 uIU/mL (0.358-3.74) SARS-CoV-2 Antigen (Rapid) Negative (NEGATIVE) Glucose (Fingerstick) 137 mg/dL (70-99) H Laboratory Tests 06/28/21 14:20 Laboratory Tests 06/28/21 14:20 ASSESSMENT & PLAN A&P Plan as noted above This note was created using [employer] and may have omissions and/or errors due to the nature of real-time voice senior consultant. Justifications for Admission Other Justification CHAD MÉNDEZ MD June 28, 2021 17:39
[2021-06-28 19:31] VITALS: BP 126/65
[2021-06-28 22:32] VITALS: BP 117/66
[2021-06-29] VITALS (8 sets, daily range): BP systolic 106–123; BP diastolic 58–66
[2021-06-29] MEDS: HYDROcodone/APAP 10/325 1 TAB TABLET PO PRN ×2 (04:51→14:15)
[2021-06-29 05:12] LABS: BASO % 1 % (0-3); EOS # 0.1 x10^3/uL (0.0-0.7); EOS % 3 % (0-3); HEMOGLOBIN 11.5 g/dL (12.0-15.5); LYMPH # 0.7 x10^3/uL (1.0-4.8); LYMPH % 15 % (24-48); MEAN CORPUSCULAR HEMOGLOBIN 31 pg (25-35); MEAN CORPUSCULAR HGB CONC 33 g/dL (31-37); MEAN CORPUSCULAR VOLUME 95 fL (79-100); MONO # 0.4 x10^3/uL (0.0-1.1); MONO % 8 % (0-9); NEUT # 3.2 x10^3/uL (1.8-7.7); NEUT % 72 % (31-73); PLATELET COUNT 217 x10^3/uL (140-400); RED BLOOD COUNT 3.71 x10^6/uL (3.50-5.40); RED CELL DISTRIBUTION WIDTH 16.3 % (11.5-14.5); WHITE BLOOD COUNT 4.5 x10^3/uL (4.0-11.0)
[2021-06-29 05:28] LABS: ALBUMIN/GLOBULIN RATIO 0.5 (1.0-1.7); CALCIUM 9.3 mg/dL (8.5-10.1); CREATININE 1.4 mg/dL (0.6-1.0); GFR 36.4; TOTAL BILIRUBIN 0.5 mg/dL (0.2-1.0); TOTAL PROTEIN 5.7 g/dL (6.4-8.2)
[2021-06-29] MEDS: INSULIN LISPRO 300 UNITS/3 ML VIAL. SQ SCH ×3 (07:42→17:00)
[2021-06-29] MEDS: FUROSEMIDE 40 MG TABLET. PO SCH ×2 (07:49→15:48)
[2021-06-29] MEDS: METOPROLOL SUCC 24HR ER 50 MG TAB.ER.24H. PO SCH (07:49)
[2021-06-29] MEDS: LISINOPRIL 10 MG TABLET PO SCH (07:50)
[2021-06-29] MEDS: PANTOPRAZOLE 40 MG TABLET.DR. PO SCH (07:50)
[2021-06-29] MEDS: APIXABAN 5 MG TABLET. PO SCH ×3 (07:50→20:32)
--- NOTE | 2021-06-29 08:14 | RAD ---
INDICATION: Reason: elevated LFTs, metastatic breast cancer, confusion / Spl. Instructions: / Histor y: COMPARISON: October 2017 TECHNIQUE: Grayscale and color ultrasound images obtained through the abdomen. FINDINGS: Pancreas: Visualized portions unremarkable. Partially seen secondary to overlying bowel gas. Liver: Enlarged Gallbladder: Dilated up to 12 cm. Common Bile Duct: Not dilated. Right Kidney: Hydronephrosis. 12 mm renal cystic lesion with possible thin septation. Left Kidney: No hydronephrosis. Spleen: Unremarkable. Aorta/IVC: Not well seen. Calcific atherosclerosis. IMPRESSION: * Gallbladder is distended. Could be from lack of recent meal but would correlate with symptoms to e nsure there is not gallbladder hydrops contributing. * Mild right-sided hydronephrosis. Electronically signed by: Chevy Berger MD (06/29/2021 8:12 AM) [id number]
--- NOTE | 2021-06-29 09:07 | PDOC ---
PROGRESS NOTES Date of Service: DATE: 06/29/21 TIME: 09:07 Subjective Subjective No new issues overnight Objective Objective Vital Signs Date Time Temp Pulse Resp B/P (MAP) Pulse Ox O2 Delivery O2 Flow Rate FiO2 06/29/21 07:50 84 113/66 06/29/21 07:48 22 93 Room Air 06/29/21 07:18 1.0 06/29/21 06:09 98.1 98.1 Intake and Output0 06/29/21 07:00 Intake Total 660 ml Balance 660 ml Intake Oral 660 ml # Voids 3 Physical Exam Abdomen: Soft, No tenderness Heart: Normal S1, Normal S2, Other (2/6 apical murmur, X RAY ELECTRON[employer] WIRING TECHNICIAN pacing) Extremities: No cyanosis, Other (2+ bilateral LE pitting edema) General: Alert, Oriented X3, Cooperative, No acute distress HEENT: Atraumatic, Mucous membr. moist/pink Lungs: Other (diminished bases) MUSCULOSKELETAL: Osteoarthritic changes both hands Neuro: Normal speech, Sensation intact Psych/Mental Status: Mental status NL, Mood NL Skin: No breakdown, No significant lesion Assessment Assessment 1. Mild acute on chronic systolic CHF: appears better compensated 2. ICM; 2D echo showed EF at 30-35% 3. PAFIB: past CVN. X RAY ELECTRON[employer] WIRING TECHNICIAN pacing 4. UTI 5. 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 [employer] 5. CAD; remote CABGx4, clinically stable 6. Hypertension; controlled 7. Diabetes, II 8. Hyperlipidemia 9. Metastatic breast CA: no treatment currently follows with [facility]. Reported mets to spine 10. Encephalopathy: Improved Recommendations 1. Continue Eliquis for stroke prevention. Continue metoprolol. 2. Continue secondary prevention measures 3. Antibiotics per PCP 4. Continue diuretics Plan Plan of Care Problems Medical Problems: (1) Altered mental status Status: Acute (2) UTI (urinary tract infection) Status: Acute (3) V tach Status: Acute Comment Review of Relevant I have reviewed the following items anand (where applicable) has been applied. Labs Laboratory Tests Test 06/28/21 11:49 06/28/21 14:20 06/28/21 15:50 06/28/21 16:41 Glucose (Fingerstick) 143 mg/dL (70-99) 137 mg/dL (70-99) White Blood Count 6.0 x10^3/uL (4.0-11.0) Red Blood Count 4.17 x10^6/uL (3.50-5.40) Hemoglobin 12.8 g/dL (12.0-15.5) Hematocrit 39.6 % (36.0-47.0) Mean Corpuscular Volume 95 fL (79-100) Mean Corpuscular Hemoglobin 31 pg (25-35) Mean Corpuscular Hemoglobin Concent 32 g/dL (31-37) Red Cell Distribution Width 16.5 % (11.5-14.5) Platelet Count 255 x10^3/uL (140-400) Neutrophils (%) (Auto) 82 % (31-73) Lymphocytes (%) (Auto) 8 % (24-48) Monocytes (%) (Auto) 8 % (0-9) Eosinophils (%) (Auto) 1 % (0-3) Basophils (%) (Auto) 1 % (0-3) Neutrophils # (Auto) 4.9 x10^3/uL (1.8-7.7) Lymphocytes # (Auto) 0.5 x10^3/uL (1.0-4.8) Monocytes # (Auto) 0.4 x10^3/uL (0.0-1.1) Eosinophils # (Auto) 0.1 x10^3/uL (0.0-0.7) Basophils # (Auto) 0.1 x10^3/uL (0.0-0.2) Sodium Level 133 mmol/L (136-145) Potassium Level 4.0 mmol/L (3.5-5.1) Chloride Level 93 mmol/L (98-107) Carbon Dioxide Level 28 mmol/L (21-32) Anion Gap 12 (6-14) Blood Urea Nitrogen 40 mg/dL (7-20) Creatinine 1.6 mg/dL (0.6-1.0) Estimated GFR (Cockcroft-Gault) 31.2 BUN/Creatinine Ratio 25 (6-20) Glucose Level 190 mg/dL (70-99) Calcium Level 9.5 mg/dL (8.5-10.1) Total Bilirubin 0.8 mg/dL (0.2-1.0) Aspartate Amino Transf (AST/SGOT) 28 U/L (15-37) Alanine Aminotransferase (ALT/SGPT) 21 U/L (14-59) Alkaline Phosphatase 389 U/L (46-116) Total Protein 6.7 g/dL (6.4-8.2) Albumin 2.3 g/dL (3.4-5.0) Albumin/Globulin Ratio 0.5 (1.0-1.7) Thyroid Stimulating Hormone (TSH) 2.965 uIU/mL (0.358-3.74) SARS-CoV-2 Antigen (Rapid) Negative (NEGATIVE) Test 06/28/21 20:34 06/29/21 04:25 06/29/21 06:23 Glucose (Fingerstick) 123 mg/dL (70-99) 109 mg/dL (70-99) White Blood Count 4.5 x10^3/uL (4.0-11.0) Red Blood Count 3.71 x10^6/uL (3.50-5.40) Hemoglobin 11.5 g/dL (12.0-15.5) Hematocrit 35.0 % (36.0-47.0) Mean Corpuscular Volume 95 fL (79-100) Mean Corpuscular Hemoglobin 31 pg (25-35) Mean Corpuscular Hemoglobin Concent 33 g/dL (31-37) Red Cell Distribution Width 16.3 % (11.5-14.5) Platelet Count 217 x10^3/uL (140-400) Neutrophils (%) (Auto) 72 % (31-73) Lymphocytes (%) (Auto) 15 % (24-48) Monocytes (%) (Auto) 8 % (0-9) Eosinophils (%) (Auto) 3 % (0-3) Basophils (%) (Auto) 1 % (0-3) Neutrophils # (Auto) 3.2 x10^3/uL (1.8-7.7) Lymphocytes # (Auto) 0.7 x10^3/uL (1.0-4.8) Monocytes # (Auto) 0.4 x10^3/uL (0.0-1.1) Eosinophils # (Auto) 0.1 x10^3/uL (0.0-0.7) Basophils # (Auto) 0.0 x10^3/uL (0.0-0.2) Sodium Level 137 mmol/L (136-145) Potassium Level 4.0 mmol/L (3.5-5.1) Chloride Level 96 mmol/L (98-107) Carbon Dioxide Level 31 mmol/L (21-32) Anion Gap 10 (6-14) Blood Urea Nitrogen 38 mg/dL (7-20) Creatinine 1.4 mg/dL (0.6-1.0) Estimated GFR (Cockcroft-Gault) 36.4 BUN/Creatinine Ratio 27 (6-20) Glucose Level 94 mg/dL (70-99) Calcium Level 9.3 mg/dL (8.5-10.1) Total Bilirubin 0.5 mg/dL (0.2-1.0) Aspartate Amino Transf (AST/SGOT) 26 U/L (15-37) Alanine Aminotransferase (ALT/SGPT) 16 U/L (14-59) Alkaline Phosphatase 337 U/L (46-116) Ammonia 63 mcmol/L (11-34) Total Protein 5.7 g/dL (6.4-8.2) Albumin 2.0 g/dL (3.4-5.0) Albumin/Globulin Ratio 0.5 (1.0-1.7) Microbiology 06/26/21 Urine Culture - Final, Complete Vitals/I & O Vital Sign - Last 24 Hours 06/28/21 06/28/21 06/28/21 06/28/21 10:49 10:50 11:00 11:19 Temp 97.9 97.9 Pulse 86 86 Resp 18 18 18 B/P (MAP) 115/66 115/66 (82) Pulse Ox 99 O2 Delivery Nasal Cannula 06/28/21 06/28/21 06/28/21 06/28/21 14:37 15:00 15:07 15:36 Temp 97.3 97.3 Pulse 86 91 Resp 18 18 18 B/P (MAP) 115/74 (88) 115/74 Pulse Ox 93 O2 Delivery Nasal Cannula O2 Flow Rate 2.0 06/28/21 06/28/21 06/28/21 06/28/21 19:04 19:31 20:05 20:12 Temp 97.8 97.8 Pulse 86 Resp 18 16 18 B/P (MAP) 126/65 (85) Pulse Ox 93 98 O2 Delivery Nasal Cannula Nasal Cannula Nasal Cannula Nasal Cannula O2 Flow Rate 2.0 2.0 2.0 2.0 06/28/21 06/28/21 06/28/21 06/29/21 22:32 23:16 23:56 02:34 Temp 98.1 97.5 98.1 97.5 Pulse 89 84 Resp 18 18 18 16 B/P (MAP) 117/66 (83) 123/62 (82) Pulse Ox 100 98 O2 Delivery Nasal Cannula Nasal Cannula Nasal Cannula Nasal Cannula O2 Flow Rate 2.0 1.0 1.0 2.0 06/29/21 06/29/21 06/29/21 06/29/21 04:51 06:09 06:13 06:44 Temp 98.1 98.1 Pulse 76 Resp 16 18 16 18 B/P (MAP) 113/61 (78) Pulse Ox 98 96 96 96 O2 Delivery Room Air Nasal Cannula Nasal Cannula Nasal Cannula O2 Flow Rate 2.0 2.0 1.0 1.0 06/29/21 06/29/21 06/29/21 06/29/21 07:18 07:48 07:49 07:50 Pulse 84 84 84 Resp 16 22 B/P (MAP) 113/66 (82) 113/66 113/66 Pulse Ox 96 93 O2 Delivery Nasal Cannula Room Air O2 Flow Rate 1.0 Intake and Output 06/28/21 06/28/21 06/29/21 15:00 23:00 07:00 Intake Total 180 ml 360 ml 120 ml Balance 180 ml 360 ml 120 ml MAHAMED ALVARES MD June 29, 2021 09:07
--- NOTE | 2021-06-29 10:12 | PDOC ---
GENERAL General: Patient examined chart reviewed discussed abdominal sonogram results at length with her. Liver is grossly unremarkable though enlarged. No comment is made of any parenchymal lesions though not the optimal test for that. Dilated gallbladder is noted though was done very early this morning and had not eaten yet. Patient has not had any symptoms suggestive of gallbladder disease. She has not had any confusion overnight. She is feeling at about baseline but concerned about trying to get home if she was to have another confusional episode she would need to return to the emergency department. She does have good support at home lives with her daughters. She follows with Dr. Weeks will have sooner than later follow-up with her after this admission. Patient does tell me that she is wanting a change from the oncology practice back to [facility]. Given the extent of her underlying medical issues it would be best to hold her 1 more day for observation and oncology consultation in the morning. Barring any changes clinically she can discharge after that consult. Her elevated alkaline phosphatase is most likely from her bony metastases. Ammonia level is up but she is concerned about trying lactulose with resultant significant diarrhea. We will recheck that level in the morning. We will ask urology to consult on her mild hydronephrosis. Encourage oral hydration. She does have a history of systolic congestive heart failure, fluid balance is a challenge for her. Time spent today is 30 minutes with greater than 50% in counseling and coordination of care most of which in discussion with patient regarding care plan and progress. Problems: (1) Metastatic breast cancer (2) Weakness (3) Altered mental status VITAL SIGNS Vital Signs/I&O: Vital Signs Date Time Temp Pulse Resp B/P (MAP) Pulse Ox O2 Delivery O2 Flow Rate FiO2 06/29/21 07:50 84 113/66 06/29/21 07:48 22 93 Room Air 06/29/21 07:18 1.0 06/29/21 06:09 98.1 98.1 I & O 06/28/21 06/28/21 06/29/21 14:59 22:59 06:59 Intake Total 180 ml 360 ml 120 ml Balance 180 ml 360 ml 120 ml In general patient is pleasant alert and oriented x3 in no acute distress HEENT exam is unremarkable for acute abnormality Neck is soft and supple no adenopathy or thyromegaly noted Chest is clear to auscultation Heart S1-S2 normal regular rate and rhythm no murmurs or gallops are noted Abdomen soft nontender nondistended no masses organomegaly noted Extremity exam is unremarkable for acute abnormality ALLERGIES Allergies: Allergies Coded Allergies Type Severity Reaction Last Updated Verified codeine Allergy Intermediate 10/16/15 Yes MEDS Medications: Current Medications Medications (Trade) Dose Ordered Sig/Kandis Start Time Stop Time Status Last Admin Dose Admin Acetaminophen (Tylenol) 650 mg PRN Q6HRS PRN 06/27/21 14:45 Acetaminophen/ Hydrocodone Bitart (Lortab 10/325) 1 tab PRN Q6HRS PRN 06/27/21 14:30 06/29/21 04:51 Al Hydroxide/Mg Hydroxide (Mylanta Plus Xs) 30 ml PRN Q3HRS PRN 06/27/21 14:45 Apixaban (Eliquis) 5 mg BID 06/27/21 09:00 06/28/21 20:38 Calcium Carbonate/ Glycine (Tums) 500 mg PRN Q3HRS PRN 06/27/21 14:45 Ceftriaxone Sodium (Rocephin) 1 gm Q24H 06/27/21 15:00 06/28/21 17:31 DC 06/28/21 15:35 Dextrose (Dextrose 50%-Water Syringe) 12.5 gm PRN Q15MIN PRN 06/27/21 15:00 Furosemide (Lasix) 40 mg [id number] 06/27/21 09:00 06/29/21 07:49 Info (Anti-Coagulation Monitoring By Pharmacy) 1 each PRN DAILY PRN 06/27/21 07:00 06/27/21 06:49 Insulin Human Lispro (HumaLOG) 0-5 UNITS TIDWMEALS 06/27/21 17:00 Lisinopril (Prinivil) 10 mg DAILY 06/27/21 09:00 06/29/21 07:50 Magnesium Hydroxide (Milk Of Magnesia) 2,400 mg PRN Q12HR PRN 06/27/21 14:45 Magnesium Sulfate 50 ml @ 25 mls/hr 1X ONCE 06/27/21 16:00 06/27/21 17:59 DC 06/27/21 15:50 Metoprolol Succinate (Toprol Xl) 150 mg DAILY 06/28/21 09:00 06/29/21 07:49 Ondansetron HCl (Zofran) 4 mg PRN Q6HRS PRN 06/27/21 14:45 Oxycodone HCl (Roxicodone) 30 mg PRN Q6HRS PRN 06/27/21 06:45 06/29/21 06:44 Pantoprazole Sodium (Protonix) 40 mg DAILYAC 06/27/21 07:30 06/29/21 07:50 Sodium Chloride 1,000 ml @ 100 mls/hr 1X ONCE 06/26/21 22:00 06/27/21 07:59 DC 06/26/21 21:31 LAB Lab: Laboratory Tests Test 06/28/21 11:49 06/28/21 14:20 06/28/21 15:50 06/28/21 16:41 Glucose (Fingerstick) 143 mg/dL (70-99) H 137 mg/dL (70-99) H White Blood Count 6.0 x10^3/uL (4.0-11.0) Red Blood Count 4.17 x10^6/uL (3.50-5.40) Hemoglobin 12.8 g/dL (12.0-15.5) Hematocrit 39.6 % (36.0-47.0) Mean Corpuscular Volume 95 fL (79-100) Mean Corpuscular Hemoglobin 31 pg (25-35) Mean Corpuscular Hemoglobin Concent 32 g/dL (31-37) Red Cell Distribution Width 16.5 % (11.5-14.5) H Platelet Count 255 x10^3/uL (140-400) Neutrophils (%) (Auto) 82 % (31-73) H Lymphocytes (%) (Auto) 8 % (24-48) L Monocytes (%) (Auto) 8 % (0-9) Eosinophils (%) (Auto) 1 % (0-3) Basophils (%) (Auto) 1 % (0-3) Neutrophils # (Auto) 4.9 x10^3/uL (1.8-7.7) Lymphocytes # (Auto) 0.5 x10^3/uL (1.0-4.8) L Monocytes # (Auto) 0.4 x10^3/uL (0.0-1.1) Eosinophils # (Auto) 0.1 x10^3/uL (0.0-0.7) Basophils # (Auto) 0.1 x10^3/uL (0.0-0.2) Sodium Level 133 mmol/L (136-145) L Potassium Level 4.0 mmol/L (3.5-5.1) Chloride Level 93 mmol/L (98-107) L Carbon Dioxide Level 28 mmol/L (21-32) Anion Gap 12 (6-14) Blood Urea Nitrogen 40 mg/dL (7-20) H Creatinine 1.6 mg/dL (0.6-1.0) H Estimated GFR (Cockcroft-Gault) 31.2 BUN/Creatinine Ratio 25 (6-20) H Glucose Level 190 mg/dL (70-99) H Calcium Level 9.5 mg/dL (8.5-10.1) Total Bilirubin 0.8 mg/dL (0.2-1.0) Aspartate Amino Transferase (AST) 28 U/L (15-37) Alanine Aminotransferase (ALT) 21 U/L (14-59) Alkaline Phosphatase 389 U/L (46-116) H Total Protein 6.7 g/dL (6.4-8.2) Albumin 2.3 g/dL (3.4-5.0) L Albumin/Globulin Ratio 0.5 (1.0-1.7) L Thyroid Stimulating Hormone (TSH) 2.965 uIU/mL (0.358-3.74) SARS-CoV-2 Antigen (Rapid) Negative (NEGATIVE) Test 06/28/21 20:34 06/29/21 04:25 06/29/21 06:23 Glucose (Fingerstick) 123 mg/dL (70-99) H 109 mg/dL (70-99) H White Blood Count 4.5 x10^3/uL (4.0-11.0) Red Blood Count 3.71 x10^6/uL (3.50-5.40) Hemoglobin 11.5 g/dL (12.0-15.5) L Hematocrit 35.0 % (36.0-47.0) L Mean Corpuscular Volume 95 fL (79-100) Mean Corpuscular Hemoglobin 31 pg (25-35) Mean Corpuscular Hemoglobin Concent 33 g/dL (31-37) Red Cell Distribution Width 16.3 % (11.5-14.5) H Platelet Count 217 x10^3/uL (140-400) Neutrophils (%) (Auto) 72 % (31-73) Lymphocytes (%) (Auto) 15 % (24-48) L Monocytes (%) (Auto) 8 % (0-9) Eosinophils (%) (Auto) 3 % (0-3) Basophils (%) (Auto) 1 % (0-3) Neutrophils # (Auto) 3.2 x10^3/uL (1.8-7.7) Lymphocytes # (Auto) 0.7 x10^3/uL (1.0-4.8) L Monocytes # (Auto) 0.4 x10^3/uL (0.0-1.1) Eosinophils # (Auto) 0.1 x10^3/uL (0.0-0.7) Basophils # (Auto) 0.0 x10^3/uL (0.0-0.2) Sodium Level 137 mmol/L (136-145) Potassium Level 4.0 mmol/L (3.5-5.1) Chloride Level 96 mmol/L (98-107) L Carbon Dioxide Level 31 mmol/L (21-32) Anion Gap 10 (6-14) Blood Urea Nitrogen 38 mg/dL (7-20) H Creatinine 1.4 mg/dL (0.6-1.0) H Estimated GFR (Cockcroft-Gault) 36.4 BUN/Creatinine Ratio 27 (6-20) H Glucose Level 94 mg/dL (70-99) Calcium Level 9.3 mg/dL (8.5-10.1) Total Bilirubin 0.5 mg/dL (0.2-1.0) Aspartate Amino Transferase (AST) 26 U/L (15-37) Alanine Aminotransferase (ALT) 16 U/L (14-59) Alkaline Phosphatase 337 U/L (46-116) H Ammonia 63 mcmol/L (11-34) H Total Protein 5.7 g/dL (6.4-8.2) L Albumin 2.0 g/dL (3.4-5.0) L Albumin/Globulin Ratio 0.5 (1.0-1.7) L Laboratory Tests 06/28/21 14:20 06/29/21 04:25 Laboratory Tests 06/28/21 14:20 06/29/21 04:25 IMAGING Imaging: PATIENT: ENDY YEUNG ACCOUNT: [id number] : 1945 LOCATION: [facility] [address] AGE: 76 SEX: F EXAM STATUS: ADM IN ORD. PHYSICIAN: CHAD MÉNDEZ MD REASON: elevated LFTs, metastatic breast cancer, confusion PROCEDURE: ABDOMEN COMPLETE INDICATION: Reason: elevated LFTs, metastatic breast cancer, confusion / Spl. Instructions: / History: COMPARISON: October 2017 TECHNIQUE: Grayscale and color ultrasound images obtained through the abdomen. FINDINGS: Pancreas: Visualized portions unremarkable. Partially seen secondary to overlying bowel gas. Liver: Enlarged Gallbladder: Dilated up to 12 cm. Common Bile Duct: Not dilated. Right Kidney: Hydronephrosis. 12 mm renal cystic lesion with possible thin septation. Left Kidney: No hydronephrosis. Spleen: Unremarkable. Aorta/IVC: Not well seen. Calcific atherosclerosis. IMPRESSION: * Gallbladder is distended. Could be from lack of recent meal but would correlate with symptoms to ensure there is not gallbladder hydrops contributing. * Mild right-sided hydronephrosis. Electronically signed by: Chevy Berger MD (06/29/2021 8:12 AM) [id number] ASSESSMENT & PLAN A&P Plan as noted above This note was created using imgfave and may have omissions and/or errors due to the nature of real-time voice car porter. Justifications for Admission Other Justification CHAD MÉNDEZ MD June 29, 2021 10:12
--- NOTE | 2021-06-29 15:44 | PDOC2 ---
UROLOGY CONSULT DOS: DATE: 06/29/21 TIME: 15:37 Reason for Consult: right hydronephrosis Chief Complaint confusion 76 year old female presented to [facility] 06/27 with increased confusion. UA showing infection, started on antibiotics in the ER. Abd US completed 06/28 showing mild right hydronephrosis, so urology was consulted. Patient states she has no urological history, this was her first UTI. Denies hematuria, fevers, chills. Some dysuria prior to admission. Denies flank pain, states her back pain is baseline due to her cancer. ROS ROS: RESPIRATORY: Shortness of breath denies. Cough denies. UROLOGY: Denies blood in urine. Denies difficulty urinating Current Medications Current Medications Sodium Chloride 1,000 ml @ 100 mls/hr 1X ONCE IV Last administered on 06/26/21at 21:31; Start 06/26/21 at 22:00; Stop 06/27/21 at 07:59; Status DC Ceftriaxone Sodium (Rocephin) 1 gm 1X ONCE IVP Last administered on 06/26/21at 21:31; Start 06/26/21 at 22:00; Stop 06/26/21 at 22:01; Status DC Apixaban (Eliquis) 5 mg BID PO Last administered on 06/28/21at 20:38; Start 06/27/21 at 09:00 Furosemide (Lasix) 40 mg [id number] PO Last administered on 06/29/21at 07:49; Start 06/27/21 at 09:00 Pantoprazole Sodium (Protonix) 40 mg DAILYAC PO Last administered on 06/29/21at 07:50; Start 06/27/21 at 07:30 Lisinopril (Prinivil) 10 mg DAILY PO Last administered on 06/29/21at 07:50; Start 06/27/21 at 09:00 Oxycodone HCl (Roxicodone) 30 mg PRN Q6HRS PRN PO SEVERE PAIN 7-10 Last administered on 06/29/21at 06:44; Start 06/27/21 at 06:45 Info (Anti-Coagulation Monitoring By Pharmacy) 1 each PRN DAILY PRN MC PER PROTOCOL Last administered on 06/27/21at 06:49; Start 06/27/21 at 07:00 Ceftriaxone Sodium (Rocephin) 1 gm Q24H IVP Last administered on 06/28/21at 15:35; Start 06/27/21 at 15:00; Stop 06/28/21 at 17:31; Status DC Acetaminophen/ Hydrocodone Bitart (Lortab 10/325) 1 tab PRN Q6HRS PRN PO MO DERATE TO SEVERE PAIN Last administered on 06/29/21at 14:15; Start 06/27/21 at 14:30 Metoprolol Succinate (Toprol Xl) 150 mg DAILY PO Last administered on 06/29/21at 07:49; Start 06/28/21 at 09:00 Ondansetron HCl (Zofran) 4 mg PRN Q6HRS PRN IVP NAUSEA/VOMITING; Start 06/27/21 at 14:45 Al Hydroxide/Mg Hydroxide (Mylanta Plus Xs) 30 ml PRN Q3HRS PRN PO HEARTBURN / GAS; Start 06/27/21 at 14:45 Calcium Carbonate/ Glycine (Tums) 500 mg PRN Q3HRS PRN PO UPSET STOMACH; Start 06/27/21 at 14:45 Acetaminophen (Tylenol) 650 mg PRN Q6HRS PRN PO Headaches, Temp > 101.5F; Start 06/27/21 at 14:45 Magnesium Hydroxide (Milk Of Magnesia) 2,400 mg PRN Q12HR PRN PO CONSTIPATION; Start 06/27/21 at 14:45 Insulin Human Lispro (HumaLOG) 0-5 UNITS TIDWMEALS SQ Last administered on 06/29/21at 11:46; Start 06/27/21 at 17:00 Dextrose (Dextrose 50%-Water Syringe) 12.5 gm PRN Q15MIN PRN IV SEE COMMENTS; Start 06/27/21 at 15:00 Magnesium Sulfate 50 ml @ 25 mls/hr 1X ONCE IV Last administered on 06/27/21at 15:50; Start 06/27/21 at 16:00; Stop 06/27/21 at 17:59; Status DC Active Scripts Active Eliquis (Apixaban) 5 Mg Tablet 5 Mg PO BID Reported Furosemide 40 Mg Tablet 40 Mg PO BID Ramipril 5 Mg Capsule 1 Cap PO DAILY 30 Days Toprol Xl (Metoprolol Succinate) 100 Mg Tab.er.24h 150 Mg PO DAILY Vitamin D (Cholecalciferol (Vitamin D3)) 50,000 Unit Capsule 50,000 Unit PO QM Tamoxifen Citrate 20 Mg Tablet 1 Tab PO DAILY 30 Days Furosemide 40 Mg Tablet 1 Tab PO PRN PRN Pantoprazole Sodium (Pantoprazole Sodium) 40 Mg Tablet.dr 40 Mg PO DAILY Hydrocodone-Apap 10-325 (Hydrocodone Bit/Acetaminophen) 1 Each Tablet 1 Tab PO PRN Q6HRS PRN Allergies: Coded Allergies: codeine (Verified Allergy, Intermediate, 10/16/15) Physical Examination PHYSICAL EXAMINATION: GENERAL: Gen. appearance: No acute distress. Mood/affect: Pleasant. HEENT: Head: Normocephalic, atraumatic. Airway Impairment: No. CHEST: Shape and expansion: Normal. Expansion: Normal. SKIN: General: Warm. Color: Good. GENITOURINARY:deferred NEUROLOGICAL: Mental status: Alert and oriented 3. Language: Normal. VITALS Vital Signs Date Time Temp Pulse Resp B/P (MAP) Pulse Ox O2 Delivery O2 Flow Rate FiO2 06/29/21 11:00 97.8 82 18 112/58 (76) 93 Room Air 97.8 06/29/21 07:18 1.0 Labs Laboratory Tests Test 06/27/21 16:45 06/27/21 20:43 06/28/21 06:05 06/28/21 08:17 Glucose (Fingerstick) 133 mg/dL (70-99) 205 mg/dL (70-99) 120 mg/dL (70-99) Triglycerides Level 83 mg/dL (0-150) Cholesterol Level 133 mg/dL (0-200) LDL Cholesterol, Calculated 77 mg/dL (0-100) VLDL Cholesterol, Calculated 17 mg/dL (0-40) Non-HDL Cholesterol Calculated 94 mg/dL (0-129) HDL Cholesterol 39 mg/dL (40-60) Cholesterol/HDL Ratio 3.4 Test 06/28/21 11:49 06/28/21 14:20 06/28/21 15:50 06/28/21 16:41 Glucose (Fingerstick) 143 mg/dL (70-99) 137 mg/dL (70-99) White Blood Count 6.0 x10^3/uL (4.0-11.0) Red Blood Count 4.17 x10^6/uL (3.50-5.40) Hemoglobin 12.8 g/dL (12.0-15.5) Hematocrit 39.6 % (36.0-47.0) Mean Corpuscular Volume 95 fL (79-100) Mean Corpuscular Hemoglobin 31 pg (25-35) Mean Corpuscular Hemoglobin Concent 32 g/dL (31-37) Red Cell Distribution Width 16.5 % (11.5-14.5) Platelet Count 255 x10^3/uL (140-400) Neutrophils (%) (Auto) 82 % (31-73) Lymphocytes (%) (Auto) 8 % (24-48) Monocytes (%) (Auto) 8 % (0-9) Eosinophils (%) (Auto) 1 % (0-3) Basophils (%) (Auto) 1 % (0-3) Neutrophils # (Auto) 4.9 x10^3/uL (1.8-7.7) Lymphocytes # (Auto) 0.5 x10^3/uL (1.0-4.8) Monocytes # (Auto) 0.4 x10^3/uL (0.0-1.1) Eosinophils # (Auto) 0.1 x10^3/uL (0.0-0.7) Basophils # (Auto) 0.1 x10^3/uL (0.0-0.2) Sodium Level 133 mmol/L (136-145) Potassium Level 4.0 mmol/L (3.5-5.1) Chloride Level 93 mmol/L (98-107) Carbon Dioxide Level 28 mmol/L (21-32) Anion Gap 12 (6-14) Blood Urea Nitrogen 40 mg/dL (7-20) Creatinine 1.6 mg/dL (0.6-1.0) Estimated GFR (Cockcroft-Gault) 31.2 BUN/Creatinine Ratio 25 (6-20) Glucose Level 190 mg/dL (70-99) Calcium Level 9.5 mg/dL (8.5-10.1) Total Bilirubin 0.8 mg/dL (0.2-1.0) Aspartate Amino Transf (AST/SGOT) 28 U/L (15-37) Alanine Aminotransferase (ALT/SGPT) 21 U/L (14-59) Alkaline Phosphatase 389 U/L (46-116) Total Protein 6.7 g/dL (6.4-8.2) Albumin 2.3 g/dL (3.4-5.0) Albumin/Globulin Ratio 0.5 (1.0-1.7) Thyroid Stimulating Hormone (TSH) 2.965 uIU/mL (0.358-3.74) SARS-CoV-2 Antigen (Rapid) Negative (NEGATIVE) Test 06/28/21 20:34 06/29/21 04:25 06/29/21 06:23 06/29/21 11:15 Glucose (Fingerstick) 123 mg/dL (70-99) 109 mg/dL (70-99) 170 mg/dL (70-99) White Blood Count 4.5 x10^3/uL (4.0-11.0) Red Blood Count 3.71 x10^6/uL (3.50-5.40) Hemoglobin 11.5 g/dL (12.0-15.5) Hematocrit 35.0 % (36.0-47.0) Mean Corpuscular Volume 95 fL (79-100) Mean Corpuscular Hemoglobin 31 pg (25-35) Mean Corpuscular Hemoglobin Concent 33 g/dL (31-37) Red Cell Distribution Width 16.3 % (11.5-14.5) Platelet Count 217 x10^3/uL (140-400) Neutrophils (%) (Auto) 72 % (31-73) Lymphocytes (%) (Auto) 15 % (24-48) Monocytes (%) (Auto) 8 % (0-9) Eosinophils (%) (Auto) 3 % (0-3) Basophils (%) (Auto) 1 % (0-3) Neutrophils # (Auto) 3.2 x10^3/uL (1.8-7.7) Lymphocytes # (Auto) 0.7 x10^3/uL (1.0-4.8) Monocytes # (Auto) 0.4 x10^3/uL (0.0-1.1) Eosinophils # (Auto) 0.1 x10^3/uL (0.0-0.7) Basophils # (Auto) 0.0 x10^3/uL (0.0-0.2) Sodium Level 137 mmol/L (136-145) Potassium Level 4.0 mmol/L (3.5-5.1) Chloride Level 96 mmol/L (98-107) Carbon Dioxide Level 31 mmol/L (21-32) Anion Gap 10 (6-14) Blood Urea Nitrogen 38 mg/dL (7-20) Creatinine 1.4 mg/dL (0.6-1.0) Estimated GFR (Cockcroft-Gault) 36.4 BUN/Creatinine Ratio 27 (6-20) Glucose Level 94 mg/dL (70-99) Calcium Level 9.3 mg/dL (8.5-10.1) Total Bilirubin 0.5 mg/dL (0.2-1.0) Aspartate Amino Transf (AST/SGOT) 26 U/L (15-37) Alanine Aminotransferase (ALT/SGPT) 16 U/L (14-59) Alkaline Phosphatase 337 U/L (46-116) Ammonia 63 mcmol/L (11-34) Total Protein 5.7 g/dL (6.4-8.2) Albumin 2.0 g/dL (3.4-5.0) Albumin/Globulin Ratio 0.5 (1.0-1.7) Laboratory Tests Test 06/28/21 15:50 06/28/21 16:41 06/28/21 20:34 06/29/21 04:25 SARS-CoV-2 Antigen (Rapid) Negative (NEGATIVE) Glucose (Fingerstick) 137 mg/dL (70-99) 123 mg/dL (70-99) White Blood Count 4.5 x10^3/uL (4.0-11.0) Red Blood Count 3.71 x10^6/uL (3.50-5.40) Hemoglobin 11.5 g/dL (12.0-15.5) Hematocrit 35.0 % (36.0-47.0) Mean Corpuscular Volume 95 fL (79-100) Mean Corpuscular Hemoglobin 31 pg (25-35) Mean Corpuscular Hemoglobin Concent 33 g/dL (31-37) Red Cell Distribution Width 16.3 % (11.5-14.5) Platelet Count 217 x10^3/uL (140-400) Neutrophils (%) (Auto) 72 % (31-73) Lymphocytes (%) (Auto) 15 % (24-48) Monocytes (%) (Auto) 8 % (0-9) Eosinophils (%) (Auto) 3 % (0-3) Basophils (%) (Auto) 1 % (0-3) Neutrophils # (Auto) 3.2 x10^3/uL (1.8-7.7) Lymphocytes # (Auto) 0.7 x10^3/uL (1.0-4.8) Monocytes # (Auto) 0.4 x10^3/uL (0.0-1.1) Eosinophils # (Auto) 0.1 x10^3/uL (0.0-0.7) Basophils # (Auto) 0.0 x10^3/uL (0.0-0.2) Sodium Level 137 mmol/L (136-145) Potassium Level 4.0 mmol/L (3.5-5.1) Chloride Level 96 mmol/L (98-107) Carbon Dioxide Level 31 mmol/L (21-32) Anion Gap 10 (6-14) Blood Urea Nitrogen 38 mg/dL (7-20) Creatinine 1.4 mg/dL (0.6-1.0) Estimated GFR (Cockcroft-Gault) 36.4 BUN/Creatinine Ratio 27 (6-20) Glucose Level 94 mg/dL (70-99) Calcium Level 9.3 mg/dL (8.5-10.1) Total Bilirubin 0.5 mg/dL (0.2-1.0) Aspartate Amino Transf (AST/SGOT) 26 U/L (15-37) Alanine Aminotransferase (ALT/SGPT) 16 U/L (14-59) Alkaline Phosphatase 337 U/L (46-116) Ammonia 63 mcmol/L (11-34) Total Protein 5.7 g/dL (6.4-8.2) Albumin 2.0 g/dL (3.4-5.0) Albumin/Globulin Ratio 0.5 (1.0-1.7) Test 06/29/21 06:23 06/29/21 11:15 Glucose (Fingerstick) 109 mg/dL (70-99) 170 mg/dL (70-99) Assessment/Plan ---Mild right hydronephrosis Seen on Abd US. CT A/P ordered to further evaluate. Low suspicion of kidney stone as no flank pain or hematuria. ---UTI UA with large leuks. Started on Rocephin in ER. PVR to ensure proper emptying. Recommend 10-14 day course of culture sensitive antibiotics Discussed UTI prevention strategies with patient including DMANOS, cranberry, probiotic. ---Right renal lesion 12mm renal cystic lesion with possible thin septation seen on US. CT pending Will have patient followup with us As patient asymptomatic, if CT is negative, will have patient follow up in 2-3 months with renal ultrasound prior. Patient agreeable to plan. If CT shows any cause, we will discuss with patient. Case d/w Dr Ramirez. Call with urology questions. ALIZA MARTINEZ APRN June 29, 2021 15:44
[2021-06-30] MEDS: HYDROcodone/APAP 10/325 1 TAB TABLET PO PRN ×3 (00:50→15:03)
[2021-06-30 02:48] LABS: BASO % 0 % (0-3); EOS # 0.1 x10^3/uL (0.0-0.7); EOS % 2 % (0-3); HEMATOCRIT 37.6 % (36.0-47.0); HEMOGLOBIN 12.3 g/dL (12.0-15.5); LYMPH # 0.9 x10^3/uL (1.0-4.8); LYMPH % 17 % (24-48); MEAN CORPUSCULAR HEMOGLOBIN 31 pg (25-35); MEAN CORPUSCULAR HGB CONC 33 g/dL (31-37); MEAN CORPUSCULAR VOLUME 94 fL (79-100); MONO # 0.4 x10^3/uL (0.0-1.1); MONO % 9 % (0-9); NEUT # 3.6 x10^3/uL (1.8-7.7); NEUT % 72 % (31-73); PLATELET COUNT 246 x10^3/uL (140-400); RED BLOOD COUNT 3.99 x10^6/uL (3.50-5.40); RED CELL DISTRIBUTION WIDTH 15.9 % (11.5-14.5)
[2021-06-30 03:04] LABS: ALBUMIN 2.2 g/dL (3.4-5.0); ALBUMIN/GLOBULIN RATIO 0.6 (1.0-1.7); CALCIUM 9.6 mg/dL (8.5-10.1); CREATININE 1.5 mg/dL (0.6-1.0); GFR 33.6; MAGNESIUM 1.4 mg/dL (1.8-2.4); POTASSIUM 3.8 mmol/L (3.5-5.1); TOTAL BILIRUBIN 0.6 mg/dL (0.2-1.0); TOTAL PROTEIN 6.2 g/dL (6.4-8.2)
[2021-06-30 03:17] VITALS: BP 116/64
[2021-06-30 03:40] LABS: % BANDS 2 % (0-9); % EOS 1 % (0-5); % LYMPHS 17 % (24-48); % MONOS 12 % (0-10); % SEGS 68 % (35-66); PLT ESTIMATE ADEQUATE (ADEQUATE)
[2021-06-30 07:00] VITALS: BP 112/61
[2021-06-30] MEDS: PANTOPRAZOLE 40 MG TABLET.DR. PO SCH (07:34)
[2021-06-30] MEDS: INSULIN LISPRO 300 UNITS/3 ML VIAL. SQ SCH ×2 (07:34→11:52)
[2021-06-30] MEDS: FUROSEMIDE 40 MG TABLET. PO SCH (08:34)
[2021-06-30] MEDS: LISINOPRIL 10 MG TABLET PO SCH (08:34)
[2021-06-30] MEDS: METOPROLOL SUCC 24HR ER 50 MG TAB.ER.24H. PO SCH (08:35)
[2021-06-30] MEDS: APIXABAN 5 MG TABLET. PO SCH (08:38)
--- NOTE | 2021-06-30 09:10 | RAD ---
CT ABDOMEN+PELVIS WO History: Reason: right hydronephrosis / Spl. Instructions: / History: Technique: Noncontrast examination of the abdomen and pelvis. Coronal and sagittal reconstructions we re performed. Exposure: One or more of the following individualized dose reduction techniques were utilized for thi s examination: 1. Automated exposure control 2. Adjustment of the mA and/or kV according to patient size 3. Use of iterative reconstruction technique. Comparison: May 02, 2018 Findings: Lower chest: Small right and tiny left pleural effusion. 4 mm left lower lobe pulmonary nodule (serie s 2 image 14), not definitely seen previously. Cardiomegaly. Scattered bilateral ground glass opaciti es. Abdomen and pelvis: The liver, and spleen are unremarkable. Bilateral adrenal gland thickening, uncha nged. Pancreatic injury. Cholelithiasis with mild gallbladder distention. No gallbladder wall thicken ing. Mild right hydronephrosis. No renal, ureteral or urinary bladder calculus. Decompressed urinary bladd er. No left hydronephrosis. Colonic diverticulosis. Normal appendix. No evidence of bowel obstruction. No pathologic lymphadenopa thy. Small pelvic free fluid. Severe atheromatous plaque throughout the aorta and branch vessels. Ect atic distal aorta measures 2.9 cm. Mild diffuse body wall edema. Bones: Increased diffuse heterogeneous lytic and sclerotic lesions throughout the thoracolumbar spine , sacrum and pelvis. Additional lesions involving the proximal femurs including the femoral necks, ri ght greater than left. Additional scattered lesions involving multiple ribs. Grade 1 anterolisthesis L4 on L5. Multilevel increased pathologic compression deformities of the thoracolumbar spine includin g T10, T11, L1, L2, L4 and L5. Multilevel poorly characterized canal narrowing. Neuroforaminal narrow ing. Impression: 1. Mild right hydronephrosis. No obstructing urolithiasis. 2. Increased diffuse osseous metastatic disease throughout the thoracolumbar spine, sacrum and pelvi s. Including the proximal femurs increasing risk for pathologic fracture. 3. Increased pathologic compression fractures of the thoracolumbar spine with multilevel canal and n euroforaminal narrowing. MRI lumbar spine with and without contrast can further assess if indicated. 4. New indeterminate small left lower lobe pulmonary nodule, may represent metastasis given history. 5. Small pleural effusions with groundglass opacities, may represent early pulmonary edema or atelec tasis. 6. Small pelvic ascites and mild body wall edema. 7. Cholelithiasis with mild gallbladder distention. Electronically signed by: Milton Rice DO (06/30/2021 9:07 AM) [id number]
[2021-06-30 11:00] VITALS: BP 124/57
--- NOTE | 2021-06-30 11:17 | PDOC ---
KIERSTEN SCHWARZ KAILA 06/30/21 1117: CARDIO Progress Notes Date and Time Date of Service 06/30/21 Time of Evaluation 1115 Subjective Subjective: No Chest Pain, No shortness of breath, No Palpitations, No Dizziness, Other (breathing much better ) Vitals Vitals Vital Signs Date Time Temp Pulse Resp B/P (MAP) Pulse Ox O2 Delivery O2 Flow Rate FiO2 06/30/21 08:35 80 112/61 06/30/21 08:00 Room Air 1.0 06/30/21 07:00 97.7 16 92 97.7 Weight Weight [ ] Input and Output Intake and Output Intake and Output 06/30/21 06:59 Intake Total 800 ml Output Total 1475 ml Balance -675 ml Intake Oral 800 ml Output Urine Total 1475 ml # Voids 2 Laboratory Labs Laboratory Tests Test 06/29/21 16:34 06/29/21 20:30 06/30/21 02:35 06/30/21 07:22 Glucose (Fingerstick) 114 mg/dL (70-99) 140 mg/dL (70-99) 87 mg/dL (70-99) White Blood Count 5.0 x10^3/uL (4.0-11.0) Red Blood Count 3.99 x10^6/uL (3.50-5.40) Hemoglobin 12.3 g/dL (12.0-15.5) Hematocrit 37.6 % (36.0-47.0) Mean Corpuscular Volume 94 fL (79-100) Mean Corpuscular Hemoglobin 31 pg (25-35) Mean Corpuscular Hemoglobin Concent 33 g/dL (31-37) Red Cell Distribution Width 15.9 % (11.5-14.5) Platelet Count 246 x10^3/uL (140-400) Neutrophils (%) (Auto) 72 % (31-73) Lymphocytes (%) (Auto) 17 % (24-48) Monocytes (%) (Auto) 9 % (0-9) Eosinophils (%) (Auto) 2 % (0-3) Basophils (%) (Auto) 0 % (0-3) Neutrophils # (Auto) 3.6 x10^3/uL (1.8-7.7) Lymphocytes # (Auto) 0.9 x10^3/uL (1.0-4.8) Monocytes # (Auto) 0.4 x10^3/uL (0.0-1.1) Eosinophils # (Auto) 0.1 x10^3/uL (0.0-0.7) Basophils # (Auto) 0.0 x10^3/uL (0.0-0.2) Segmented Neutrophils % 68 % (35-66) Band Neutrophils % 2 % (0-9) Lymphocytes % 17 % (24-48) Monocytes % 12 % (0-10) Eosinophils % 1 % (0-5) Platelet Estimate Adequate (ADEQUATE) Sodium Level 139 mmol/L (136-145) Potassium Level 3.8 mmol/L (3.5-5.1) Chloride Level 96 mmol/L (98-107) Carbon Dioxide Level 33 mmol/L (21-32) Anion Gap 10 (6-14) Blood Urea Nitrogen 35 mg/dL (7-20) Creatinine 1.5 mg/dL (0.6-1.0) Estimated GFR (Cockcroft-Gault) 33.6 BUN/Creatinine Ratio 23 (6-20) Glucose Level 106 mg/dL (70-99) Calcium Level 9.6 mg/dL (8.5-10.1) Magnesium Level 1.4 mg/dL (1.8-2.4) Total Bilirubin 0.6 mg/dL (0.2-1.0) Aspartate Amino Transf (AST/SGOT) 25 U/L (15-37) Alanine Aminotransferase (ALT/SGPT) 20 U/L (14-59) Alkaline Phosphatase 372 U/L (46-116) Ammonia 45 mcmol/L (11-34) Total Protein 6.2 g/dL (6.4-8.2) Albumin 2.2 g/dL (3.4-5.0) Albumin/Globulin Ratio 0.6 (1.0-1.7) Microbiology Micro Microbiology 06/26/21 Urine Culture - Final, Complete Physical Exam HEENT: Neck Supple W Full Motion Chest: Symmetric LUNGS: Clear to Auscultation Heart: RRR Abdomen: Soft N/T Extremities: Other (1+ bilateral LE edema ) Neurology: alert, oriented, follow commands Assessment Assessment 1. Mild acute on chronic systolic CHF: improved 2. ICM; 2D echo showed EF at 30-35% 3. PAFIB: past CVN. FLUX CORE WELDER pacing 4. CKD- Cr stable 5. FLUX CORE WELDER-P in situ with hx of tachy richie syndrome. ([employer]) 5. CAD; remote CABGx4, clinically stable 6. Hypertension; controlled 7. Diabetes, II 8. Hyperlipidemia 9. Metastatic breast CA: no treatment currently follows with [facility]. Reported mets to spine. Patient wanting to transfer care to [facility] 10. Encephalopathy: Improved Recommendations Oral Lasix therapy Metoprolol for rate control Eliquis for stroke prevention. Continue metoprolol. Secondary prevention measures Supportive care Justicifation of Admission Dx: Justifications for Admission: Justification of Admission Dx: Yes Comments: Acute on chronic systolic CHF SHANTI SEVILLA MD 06/30/21 1643: CARDIO Progress Notes Plan Plan The patient was seen and interviewed as well as examined at the bedside. The chart was reviewed. The case was discussed. Agree with the plan of care. KIERSTEN SCHWARZ APRN June 30, 2021 11:17 SHANTI SEVILLA MD June 30, 2021 16:43
--- NOTE | 2021-06-30 12:46 | PN ---
PROGRESS NOTES Date of Service DATE: 06/30/21 TIME: 12:45 Subjective Subjective Pt denies complaints waqnting to go home Objective Objective Vital Signs Date Time Temp Pulse Resp B/P (MAP) Pulse Ox O2 Delivery O2 Flow Rate FiO2 06/30/21 11:00 97.7 74 18 124/57 (79) 94 Room Air 97.7 06/30/21 08:00 1.0 Intake and Output 06/30/21 07:00 Intake Total 800 ml Output Total 1475 ml Balance -675 ml Intake Oral 800 ml Output Urine Total 1475 ml # Voids 2 Physical Exam Physical Exam NAD AOx3 Nonlabored respirations Diagnosis PROBLEM LIST Problems Medical Problems: (1) Altered mental status Status: Acute (2) UTI (urinary tract infection) Status: Acute (3) V tach Status: Acute Assessment Assessment Problems Medical Problems: (1) Altered mental status Status: Acute (2) UTI (urinary tract infection) Status: Acute (3) V tach Status: Acute Plan Plan of Care ---Mild right hydronephrosis Seen on Abd US. CT A/P ordered to further evaluate--no obstruction F/u 2-3mos with CEZAR prior to monitor. No need for intervention currently. ---UTI UA with large leuks. Started on Rocephin in ER. PVR to ensure proper emptying. Recommend 7 day course of abx. Ucx 10k organisms. ---Right renal lesion 12mm renal cystic lesion with possible thin septation seen on US. F/u for monitoring Call with questions. Comment Review of Relevant I have reviewed the following items anand (where applicable) has been applied. Labs Laboratory Tests Test 06/28/21 14:20 06/28/21 15:50 06/28/21 16:41 06/28/21 20:34 White Blood Count 6.0 x10^3/uL (4.0-11.0) Red Blood Count 4.17 x10^6/uL (3.50-5.40) Hemoglobin 12.8 g/dL (12.0-15.5) Hematocrit 39.6 % (36.0-47.0) Mean Corpuscular Volume 95 fL (79-100) Mean Corpuscular Hemoglobin 31 pg (25-35) Mean Corpuscular Hemoglobin Concent 32 g/dL (31-37) Red Cell Distribution Width 16.5 % (11.5-14.5) Platelet Count 255 x10^3/uL (140-400) Neutrophils (%) (Auto) 82 % (31-73) Lymphocytes (%) (Auto) 8 % (24-48) Monocytes (%) (Auto) 8 % (0-9) Eosinophils (%) (Auto) 1 % (0-3) Basophils (%) (Auto) 1 % (0-3) Neutrophils # (Auto) 4.9 x10^3/uL (1.8-7.7) Lymphocytes # (Auto) 0.5 x10^3/uL (1.0-4.8) Monocytes # (Auto) 0.4 x10^3/uL (0.0-1.1) Eosinophils # (Auto) 0.1 x10^3/uL (0.0-0.7) Basophils # (Auto) 0.1 x10^3/uL (0.0-0.2) Sodium Level 133 mmol/L (136-145) Potassium Level 4.0 mmol/L (3.5-5.1) Chloride Level 93 mmol/L (98-107) Carbon Dioxide Level 28 mmol/L (21-32) Anion Gap 12 (6-14) Blood Urea Nitrogen 40 mg/dL (7-20) Creatinine 1.6 mg/dL (0.6-1.0) Estimated GFR (Cockcroft-Gault) 31.2 BUN/Creatinine Ratio 25 (6-20) Glucose Level 190 mg/dL (70-99) Calcium Level 9.5 mg/dL (8.5-10.1) Total Bilirubin 0.8 mg/dL (0.2-1.0) Aspartate Amino Transf (AST/SGOT) 28 U/L (15-37) Alanine Aminotransferase (ALT/SGPT) 21 U/L (14-59) Alkaline Phosphatase 389 U/L (46-116) Total Protein 6.7 g/dL (6.4-8.2) Albumin 2.3 g/dL (3.4-5.0) Albumin/Globulin Ratio 0.5 (1.0-1.7) Vitamin B12 Level > 2000 pg/mL (247-911) Thyroid Stimulating Hormone (TSH) 2.965 uIU/mL (0.358-3.74) SARS-CoV-2 Antigen (Rapid) Negative (NEGATIVE) Glucose (Fingerstick) 137 mg/dL (70-99) 123 mg/dL (70-99) Test 06/29/21 04:25 06/29/21 06:23 06/29/21 11:15 06/29/21 16:34 White Blood Count 4.5 x10^3/uL (4.0-11.0) Red Blood Count 3.71 x10^6/uL (3.50-5.40) Hemoglobin 11.5 g/dL (12.0-15.5) Hematocrit 35.0 % (36.0-47.0) Mean Corpuscular Volume 95 fL (79-100) Mean Corpuscular Hemoglobin 31 pg (25-35) Mean Corpuscular Hemoglobin Concent 33 g/dL (31-37) Red Cell Distribution Width 16.3 % (11.5-14.5) Platelet Count 217 x10^3/uL (140-400) Neutrophils (%) (Auto) 72 % (31-73) Lymphocytes (%) (Auto) 15 % (24-48) Monocytes (%) (Auto) 8 % (0-9) Eosinophils (%) (Auto) 3 % (0-3) Basophils (%) (Auto) 1 % (0-3) Neutrophils # (Auto) 3.2 x10^3/uL (1.8-7.7) Lymphocytes # (Auto) 0.7 x10^3/uL (1.0-4.8) Monocytes # (Auto) 0.4 x10^3/uL (0.0-1.1) Eosinophils # (Auto) 0.1 x10^3/uL (0.0-0.7) Basophils # (Auto) 0.0 x10^3/uL (0.0-0.2) Sodium Level 137 mmol/L (136-145) Potassium Level 4.0 mmol/L (3.5-5.1) Chloride Level 96 mmol/L (98-107) Carbon Dioxide Level 31 mmol/L (21-32) Anion Gap 10 (6-14) Blood Urea Nitrogen 38 mg/dL (7-20) Creatinine 1.4 mg/dL (0.6-1.0) Estimated GFR (Cockcroft-Gault) 36.4 BUN/Creatinine Ratio 27 (6-20) Glucose Level 94 mg/dL (70-99) Calcium Level 9.3 mg/dL (8.5-10.1) Total Bilirubin 0.5 mg/dL (0.2-1.0) Aspartate Amino Transf (AST/SGOT) 26 U/L (15-37) Alanine Aminotransferase (ALT/SGPT) 16 U/L (14-59) Alkaline Phosphatase 337 U/L (46-116) Ammonia 63 mcmol/L (11-34) Total Protein 5.7 g/dL (6.4-8.2) Albumin 2.0 g/dL (3.4-5.0) Albumin/Globulin Ratio 0.5 (1.0-1.7) Glucose (Fingerstick) 109 mg/dL (70-99) 170 mg/dL (70-99) 114 mg/dL (70-99) Test 06/29/21 20:30 06/30/21 02:35 06/30/21 07:22 06/30/21 11:48 Glucose (Fingerstick) 140 mg/dL (70-99) 87 mg/dL (70-99) 137 mg/dL (70-99) White Blood Count 5.0 x10^3/uL (4.0-11.0) Red Blood Count 3.99 x10^6/uL (3.50-5.40) Hemoglobin 12.3 g/dL (12.0-15.5) Hematocrit 37.6 % (36.0-47.0) Mean Corpuscular Volume 94 fL (79-100) Mean Corpuscular Hemoglobin 31 pg (25-35) Mean Corpuscular Hemoglobin Concent 33 g/dL (31-37) Red Cell Distribution Width 15.9 % (11.5-14.5) Platelet Count 246 x10^3/uL (140-400) Neutrophils (%) (Auto) 72 % (31-73) Lymphocytes (%) (Auto) 17 % (24-48) Monocytes (%) (Auto) 9 % (0-9) Eosinophils (%) (Auto) 2 % (0-3) Basophils (%) (Auto) 0 % (0-3) Neutrophils # (Auto) 3.6 x10^3/uL (1.8-7.7) Lymphocytes # (Auto) 0.9 x10^3/uL (1.0-4.8) Monocytes # (Auto) 0.4 x10^3/uL (0.0-1.1) Eosinophils # (Auto) 0.1 x10^3/uL (0.0-0.7) Basophils # (Auto) 0.0 x10^3/uL (0.0-0.2) Segmented Neutrophils % 68 % (35-66) Band Neutrophils % 2 % (0-9) Lymphocytes % 17 % (24-48) Monocytes % 12 % (0-10) Eosinophils % 1 % (0-5) Platelet Estimate Adequate (ADEQUATE) Sodium Level 139 mmol/L (136-145) Potassium Level 3.8 mmol/L (3.5-5.1) Chloride Level 96 mmol/L (98-107) Carbon Dioxide Level 33 mmol/L (21-32) Anion Gap 10 (6-14) Blood Urea Nitrogen 35 mg/dL (7-20) Creatinine 1.5 mg/dL (0.6-1.0) Estimated GFR (Cockcroft-Gault) 33.6 BUN/Creatinine Ratio 23 (6-20) Glucose Level 106 mg/dL (70-99) Calcium Level 9.6 mg/dL (8.5-10.1) Magnesium Level 1.4 mg/dL (1.8-2.4) Total Bilirubin 0.6 mg/dL (0.2-1.0) Aspartate Amino Transf (AST/SGOT) 25 U/L (15-37) Alanine Aminotransferase (ALT/SGPT) 20 U/L (14-59) Alkaline Phosphatase 372 U/L (46-116) Ammonia 45 mcmol/L (11-34) Total Protein 6.2 g/dL (6.4-8.2) Albumin 2.2 g/dL (3.4-5.0) Albumin/Globulin Ratio 0.6 (1.0-1.7) Laboratory Tests Test 06/29/21 16:34 06/29/21 20:30 06/30/21 02:35 06/30/21 07:22 Glucose (Fingerstick) 114 mg/dL (70-99) 140 mg/dL (70-99) 87 mg/dL (70-99) White Blood Count 5.0 x10^3/uL (4.0-11.0) Red Blood Count 3.99 x10^6/uL (3.50-5.40) Hemoglobin 12.3 g/dL (12.0-15.5) Hematocrit 37.6 % (36.0-47.0) Mean Corpuscular Volume 94 fL (79-100) Mean Corpuscular Hemoglobin 31 pg (25-35) Mean Corpuscular Hemoglobin Concent 33 g/dL (31-37) Red Cell Distribution Width 15.9 % (11.5-14.5) Platelet Count 246 x10^3/uL (140-400) Neutrophils (%) (Auto) 72 % (31-73) Lymphocytes (%) (Auto) 17 % (24-48) Monocytes (%) (Auto) 9 % (0-9) Eosinophils (%) (Auto) 2 % (0-3) Basophils (%) (Auto) 0 % (0-3) Neutrophils # (Auto) 3.6 x10^3/uL (1.8-7.7) Lymphocytes # (Auto) 0.9 x10^3/uL (1.0-4.8) Monocytes # (Auto) 0.4 x10^3/uL (0.0-1.1) Eosinophils # (Auto) 0.1 x10^3/uL (0.0-0.7) Basophils # (Auto) 0.0 x10^3/uL (0.0-0.2) Segmented Neutrophils % 68 % (35-66) Band Neutrophils % 2 % (0-9) Lymphocytes % 17 % (24-48) Monocytes % 12 % (0-10) Eosinophils % 1 % (0-5) Platelet Estimate Adequate (ADEQUATE) Sodium Level 139 mmol/L (136-145) Potassium Level 3.8 mmol/L (3.5-5.1) Chloride Level 96 mmol/L (98-107) Carbon Dioxide Level 33 mmol/L (21-32) Anion Gap 10 (6-14) Blood Urea Nitrogen 35 mg/dL (7-20) Creatinine 1.5 mg/dL (0.6-1.0) Estimated GFR (Cockcroft-Gault) 33.6 BUN/Creatinine Ratio 23 (6-20) Glucose Level 106 mg/dL (70-99) Calcium Level 9.6 mg/dL (8.5-10.1) Magnesium Level 1.4 mg/dL (1.8-2.4) Total Bilirubin 0.6 mg/dL (0.2-1.0) Aspartate Amino Transf (AST/SGOT) 25 U/L (15-37) Alanine Aminotransferase (ALT/SGPT) 20 U/L (14-59) Alkaline Phosphatase 372 U/L (46-116) Ammonia 45 mcmol/L (11-34) Total Protein 6.2 g/dL (6.4-8.2) Albumin 2.2 g/dL (3.4-5.0) Albumin/Globulin Ratio 0.6 (1.0-1.7) Test 06/30/21 11:48 Glucose (Fingerstick) 137 mg/dL (70-99) Microbiology 06/26/21 Urine Culture - Final, Complete Medications Current Medications Sodium Chloride 1,000 ml @ 100 mls/hr 1X ONCE IV Last administered on 06/26/21at 21:31; Start 06/26/21 at 22:00; Stop 06/27/21 at 07:59; Status DC Ceftriaxone Sodium (Rocephin) 1 gm 1X ONCE IVP Last administered on 06/26/21at 21:31; Start 06/26/21 at 22:00; Stop 06/26/21 at 22:01; Status DC Apixaban (Eliquis) 5 mg BID PO Last administered on 06/29/21at 20:32; Start 06/27/21 at 09:00 Furosemide (Lasix) 40 mg BID94 PO Last administered on 06/30/21at 08:34; Start 06/27/21 at 09:00 Pantoprazole Sodium (Protonix) 40 mg DAILYAC PO Last administered on 06/30/21at 07:34; Start 06/27/21 at 07:30 Lisinopril (Prinivil) 10 mg DAILY PO Last administered on 06/30/21at 08:34; Start 06/27/21 at 09:00 Oxycodone HCl (Roxicodone) 30 mg PRN Q6HRS PRN PO SEVERE PAIN 7-10 Last administered on 06/30/21at 05:05; Start 06/27/21 at 06:45 Info (Anti-Coagulation Monitoring By Pharmacy) 1 each PRN DAILY PRN MC PER PROTOCOL Last administered on 06/27/21at 06:49; Start 06/27/21 at 07:00 Ceftriaxone Sodium (Rocephin) 1 gm Q24H IVP Last administered on 06/28/21at 15:35; Start 06/27/21 at 15:00; Stop 06/28/21 at 17:31; Status DC Acetaminophen/ Hydrocodone Bitart (Lortab 10/325) 1 tab PRN Q6HRS PRN PO MODERATE TO SEVERE PAIN Last administered on 06/30/21at 08:42; Start 06/27/21 at 14:30 Metoprolol Succinate (Toprol Xl) 150 mg DAILY PO Last administered on 06/30/21at 08:35; Start 06/28/21 at 09:00 Ondansetron HCl (Zofran) 4 mg PRN Q6HRS PRN IVP NAUSEA/VOMITING; Start 06/27/21 at 14:45 Al Hydroxide/Mg Hydroxide (Mylanta Plus Xs) 30 ml PRN Q3HRS PRN PO HEARTBURN / GAS; Start 06/27/21 at 14:45 Calcium Carbonate/ Glycine (Tums) 500 mg PRN Q3HRS PRN PO UPSET STOMACH; Start 06/27/21 at 14:45 Acetaminophen (Tylenol) 650 mg PRN Q6HRS PRN PO Headaches, Temp > 101.5F; Start 06/27/21 at 14:45 Magnesium Hydroxide (Milk Of Magnesia) 2,400 mg PRN Q12HR PRN PO CONSTIPATION; Start 06/27/21 at 14:45 Insulin Human Lispro (HumaLOG) 0-5 UNITS TIDWMEALS SQ Last administered on 06/29/21at 11:46; Start 06/27/21 at 17:00 Dextrose (Dextrose 50%-Water Syringe) 12.5 gm PRN Q15MIN PRN IV SEE COMMENTS; Start 06/27/21 at 15:00 Magnesium Sulfate 50 ml @ 25 mls/hr 1X ONCE IV Last administered on 06/27/21at 15:50; Start 06/27/21 at 16:00; Stop 06/27/21 at 17:59; Status DC Active Scripts Active Eliquis (Apixaban) 5 Mg Tablet 5 Mg PO BID Reported Furosemide 40 Mg Tablet 40 Mg PO BID Ramipril 5 Mg Capsule 1 Cap PO DAILY 30 Days Toprol Xl (Metoprolol Succinate) 100 Mg Tab.er.24h 150 Mg PO DAILY Vitamin D (Cholecalciferol (Vitamin D3)) 50,000 Unit Capsule 50,000 Unit PO QM Tamoxifen Citrate 20 Mg Tablet 1 Tab PO DAILY 30 Days Furosemide 40 Mg Tablet 1 Tab PO PRN PRN Pantoprazole Sodium (Pantoprazole Sodium) 40 Mg Tablet.dr 40 Mg PO DAILY Hydrocodone-Apap 10-325 (Hydrocodone Bit/Acetaminophen) 1 Each Tablet 1 Tab PO PRN Q6HRS PRN Vitals/I & O Vital Sign - Last 24 Hours 06/29/21 06/29/21 06/29/21 06/29/21 15:00 19:48 20:00 22:10 Temp 97.7 98.3 97.4 97.7 98.3 97.4 Pulse 73 75 85 Resp 18 16 16 B/P (MAP) 121/66 (84) 113/62 (79) 106/58 (74) Pulse Ox 96 93 90 O2 Delivery Room Air Room Air Room Air Room Air 06/30/21 06/30/21 06/30/21 06/30/21 00:50 01:20 03:17 05:05 Temp 97.9 97.9 Pulse 85 Resp 18 18 16 18 B/P (MAP) 116/64 (81) Pulse Ox 92 92 92 92 O2 Delivery Room Air Room Air Room Air Room Air 06/30/21 06/30/21 06/30/21 06/30/21 05:35 07:00 08:00 08:34 Temp 97.7 97.7 Pulse 80 80 Resp 16 16 B/P (MAP) 112/61 (78) 112/61 Pulse Ox 92 92 O2 Delivery Room Air Room Air Room Air O2 Flow Rate 1.0 06/30/21 06/30/21 08:35 11:00 Temp 97.7 97.7 Pulse 80 74 Resp 18 B/P (MAP) 112/61 124/57 (79) Pulse Ox 94 O2 Delivery Room Air Intake and Output 06/29/21 06/29/21 06/30/21 15:00 23:00 07:00 Intake Total 700 ml 100 ml Output Total 400 ml 475 ml 600 ml Balance 300 ml -475 ml -500 ml DUYEN NAVA June 30, 2021 12:46
--- NOTE | 2021-06-30 14:57 | PDOC ---
[employer] PROGRESS NOTE Date of Service DOS: DATE: 06/30/21 TIME: 14:07 Chief Complaint Chief Complaint Acute metabolic Encephalopathy Mild acute on chronic systolic CHF: appears better compensated Ischemic cardiomyopahty 2D echo showed EF at 30-35% PAFIB: past CVN. 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 [employer] CAD; remote CABGx4, clinically stable Hypertension; controlled Diabetes, II Hyperlipidemia Metastatic breast CA: no treatment currently follows with [facility] onc. Reported mets to spine History of Present Illness History of Present Illness Ms Real is a 76yo female with PMHx paroxsymal afib, chronic systolic CHF, CAD s/p CABG, HTN, metastatic breast cancer who was admitted for confusion and dysuria. Consults: Urology and cardiology 06/30: Seen bedside with daughter today. Work with therapy even though she has been very weak trying to transition to the bathtub CT abdomen pelvis with mild right hydronephrosis worsening thoracic lumbar sacral and pelvic and proximal femur osseous metastatic disease. Discussed with daughter and patient bedside she is feeling improved with heart rate has been controlled she does not want an y aggressive care including radiation or chemotherapy but would like to follow- up with oncology has been shuffled around with oncologist encouraged her to follow-up with [facility] oncology and to go home with home health with transition to palliative care at the discretion of oncology in the future. She is complaining of a little bit of pain in her hand and her foot which looks like tophaceous gout. Vitals/I&O Vitals/I&O: Vital Signs Date Time Temp Pulse Resp B/P (MAP) Pulse Ox O2 Delivery O2 Flow Rate FiO2 06/30/21 11:00 97.7 74 18 124/57 (79) 94 Room Air 97.7 06/30/21 08:00 1.0 I & O 06/29/21 06/29/21 06/30/21 15:00 23:00 07:00 Intake Total 700 ml 100 ml Output Total 400 ml 475 ml 600 ml Balance 300 ml -475 ml -500 ml Physical Exam General: Alert, Oriented X3, Cooperative, No acute distress Heart: Normal S1, Normal S2, Other (2/6 apical murmur, OCEAN IMPORT REPRESENTATIVE pacing) Lungs: Clear, Other Abdomen: Soft, No tenderness Extremities: No cyanosis, Other (2+ bilateral LE pitting edema) Skin: No breakdown, No significant lesion Labs Labs: Laboratory Tests Test 06/29/21 16:34 06/29/21 20:30 06/30/21 02:35 06/30/21 07:22 Glucose (Fingerstick) 114 mg/dL (70-99) 140 mg/dL (70-99) 87 mg/dL (70-99) White Blood Count 5.0 x10^3/uL (4.0-11.0) Red Blood Count 3.99 x10^6/uL (3.50-5.40) Hemoglobin 12.3 g/dL (12.0-15.5) Hematocrit 37.6 % (36.0-47.0) Mean Corpuscular Volume 94 fL (79-100) Mean Corpuscular Hemoglobin 31 pg (25-35) Mean Corpuscular Hemoglobin Concent 33 g/dL (31-37) Red Cell Distribution Width 15.9 % (11.5-14.5) Platelet Count 246 x10^3/uL (140-400) Neutrophils (%) (Auto) 72 % (31-73) Lymphocytes (%) (Auto) 17 % (24-48) Monocytes (%) (Auto) 9 % (0-9) Eosinophils (%) (Auto) 2 % (0-3) Basophils (%) (Auto) 0 % (0-3) Neutrophils # (Auto) 3.6 x10^3/uL (1.8-7.7) Lymphocytes # (Auto) 0.9 x10^3/uL (1.0-4.8) Monocytes # (Auto) 0.4 x10^3/uL (0.0-1.1) Eosinophils # (Auto) 0.1 x10^3/uL (0.0-0.7) Basophils # (Auto) 0.0 x10^3/uL (0.0-0.2) Segmented Neutrophils % 68 % (35-66) Band Neutrophils % 2 % (0-9) Lymphocytes % 17 % (24-48) Monocytes % 12 % (0-10) Eosinophils % 1 % (0-5) Platelet Estimate Adequate (ADEQUATE) Sodium Level 139 mmol/L (136-145) Potassium Level 3.8 mmol/L (3.5-5.1) Chloride Level 96 mmol/L (98-107) Carbon Dioxide Level 33 mmol/L (21-32) Anion Gap 10 (6-14) Blood Urea Nitrogen 35 mg/dL (7-20) Creatinine 1.5 mg/dL (0.6-1.0) Estimated GFR (Cockcroft-Gault) 33.6 BUN/Creatinine Ratio 23 (6-20) Glucose Level 106 mg/dL (70-99) Calcium Level 9.6 mg/dL (8.5-10.1) Magnesium Level 1.4 mg/dL (1.8-2.4) Total Bilirubin 0.6 mg/dL (0.2-1.0) Aspartate Amino Transf (AST/SGOT) 25 U/L (15-37) Alanine Aminotransferase (ALT/SGPT) 20 U/L (14-59) Alkaline Phosphatase 372 U/L (46-116) Ammonia 45 mcmol/L (11-34) Total Protein 6.2 g/dL (6.4-8.2) Albumin 2.2 g/dL (3.4-5.0) Albumin/Globulin Ratio 0.6 (1.0-1.7) Test 06/30/21 11:48 Glucose (Fingerstick) 137 mg/dL (70-99) Assessment and Plan Assessmemt and Plan Problems Medical Problems: (1) Altered mental status Status: Acute (2) UTI (urinary tract infection) Status: Acute (3) V tach Status: Acute Comment Review of Relevant I have reviewed the following items anand (where applicable) has been applied. Images: CT abdomen/pelvis 1. Mild right hydronephrosis. No obstructing urolithiasis. 2. Increased diffuse osseous metastatic disease throughout the thoracolumbar spine, sacrum and pelvis. Including the proximal femurs increasing risk for pathologic fracture. 3. Increased pathologic compression fractures of the thoracolumbar spine with multilevel canal and neuroforaminal narrowing. MRI lumbar spine with and without contrast can further assess if indicated. 4. New indeterminate small left lower lobe pulmonary nodule, may represent metastasis given history. 5. Small pleural effusions with groundglass opacities, may represent early pulmonary edema or atelectasis. 6. Small pelvic ascites and mild body wall edema. 7. Cholelithiasis with mild gallbladder distention. Justifications for Admission Other Justification CYNTHIA GRADY MD June 30, 2021 14:57
[2021-06-30] MEDS ORDERED: CEFD300C PO (15:00)
[2021-06-30] MEDS ORDERED: OXYC30TA3 PO (15:00)
--- NOTE | 2021-06-30 15:11 | SNU/HH DC ---
DISCHARGE WITH HOME HEALTH DISCHARGE INFORMATION: Discharge Date: June 30, 2021 Final Diagnosis: Problems Medical Problems: (1) Altered mental status Status: Acute (2) UTI (urinary tract infection) Status: Acute (3) V tach Status: Acute Condition on Discharge: Stable CODE STATUS: Code Status: DNR/DNI HOME HEALTH: Face to Face: I certify this patient is under my care and that I, or a nurse practitioner or physician's computer assistant working with me, had a face to face encounter that meets the physician face to face encounter requirements with this patient on 06/30/2021. Medical Complications: CHF, Falls, HTN, Other (Metastatic breast cancer) Long Term For: Assess Cardiopulm Status, Assess/Skilled Observatio, Medication Management, Pain Management RN For Eval/Treatment: Yes Physical Therapy For: Evalulation/Treatment Occupational Therapy For: Evaluation/Treatment Home Health Aide For: Self-care Pt Meets Homebound Status: Extreme weakness w/ amb., Frequent falls w/ injury, Limited distance walking POST DISCHARGE ORDERS: Activity Instructions for Disc: No restrictions, Resume previous activity Weight Bearing Status after Di: No restrictions, Full weight bearing DIET AFTER DISCHARGE: Cardiac Wound/Incision Care: No wound care needed CHECKS AFTER DISCHARGE: Checks after discharge: Check blood press - daily, Check blood sugar, ac/hs, Check your Temp as needed, Weigh Yourself Daily FOLLOW-UP: Additional Instructions: Dr Gus White [address] [place] [address] P: [phone] Call to follow up with cardiology [address] [address], [address] [place] [address] TREATMENT/EQUIPMENT ORDERS: Adaptive Equipment Issued: None CERTIFICATION STATEMENT: Certification Statement: Certification Statement: Based on the above finding, I certify that this patient is confined to the home and needs intermittent fpc care, physical therapy and/or speech therapy, or continues to need occupational therapy.~ This patient is under my care, and I have initiated the establishment of the plan of care.~ This patient will be followed by myself or a community physician who will periodically review the plan of care. Home Meds Active Scripts Cefdinir (CEFDINIR) 300 Mg Capsule, 1 CAP PO BID for Pyelo for 3 Days, #6 CAP Prov:RIFFEL,CHRISTOPHER S MD 06/30/21 Oxycodone Hcl (OXYCODONE HCL IMMED.RELEASE ) 30 Mg Tablet, 30 MG PO PRN Q6HRS PRN for SEVERE PAIN 7-10 for 30 Days, #120 TAB Prov:CYNTHIA GRADY MD 06/30/21 Apixaban (ELIQUIS) 5 Mg Tablet, 5 MG PO BID for afib, #60 TAB Prov:KALPANA ALONSO MD 02/04/19 Reported Medications Furosemide (FUROSEMIDE) 40 Mg Tablet, 40 MG PO BID for edema, TAB 06/27/21 Ramipril (RAMIPRIL) 5 Mg Capsule, 1 CAP PO DAILY for heart failure for 30 Days, #30 CAP 0 Refills 06/27/21 Metoprolol Succinate (TOPROL XL) 100 Mg Tab.er.24h, 150 MG PO DAILY for FOR H YPERTENSION, #30 TAB 0 Refills 02/22/19 Cholecalciferol (Vitamin D3) (Vitamin D) 50,000 Unit Capsule, 70876 UNIT PO QM for , CAP 02/03/19 Furosemide (FUROSEMIDE) 40 Mg Tablet, 1 TAB PO PRN PRN for SEE COMMENTS, #30 TAB 5 Refills 02/03/19 Pantoprazole Sodium (PANTOPRAZOLE SODIUM ) 40 Mg Tablet.dr, 40 MG PO DAILY fo r gerd 12/11/16 Hydrocodone Bit/Acetaminophen (HYDROCODONE-APAP 10-325 ) 1 Each Tablet, 1 TAB PO PRN Q6HRS PRN for PAIN 12/11/16 Discontinued Reported Medications Tamoxifen Citrate (TAMOXIFEN CITRATE) 20 Mg Tablet, 1 TAB PO DAILY for estrogen for 30 Days, #30 TAB 0 Refills 02/03/19 CYNTHIA GRADY MD June 30, 2021 15:11
--- NOTE | 2021-06-30 15:23 | PDOC3 ---
Discharge Summary Visit Information Date of Admission: June 26, 2021 Date of Discharge: June 30, 2021 Admitting Diagnosis: Altered mental status Final Diagnosis Problems Medical Problems: (1) Altered mental status Status: Acute (2) UTI (urinary tract infection) Status: Acute (3) V tach Status: Acute Brief Hospital Course Allergies Allergies Coded Allergies Type Severity Reaction Last Updated Verified codeine Allergy Intermediate 10/16/15 Yes Vital Signs Vital Signs Date Time Temp Pulse Resp B/P (MAP) Pulse Ox O2 Delivery O2 Flow Rate FiO2 06/30/21 11:00 97.7 74 18 124/57 (79) 94 Room Air 97.7 06/30/21 08:00 1.0 Lab Results Laboratory Tests Test 06/28/21 15:50 06/28/21 16:41 06/28/21 20:34 06/29/21 04:25 SARS-CoV-2 Antigen (Rapid) Negative (NEGATIVE) Glucose (Fingerstick) 137 mg/dL (70-99) 123 mg/dL (70-99) White Blood Count 4.5 x10^3/uL (4.0-11.0) Red Blood Count 3.71 x10^6/uL (3.50-5.40) Hemoglobin 11.5 g/dL (12.0-15.5) Hematocrit 35.0 % (36.0-47.0) Mean Corpuscular Volume 95 fL (79-100) Mean Corpuscular Hemoglobin 31 pg (25-35) Mean Corpuscular Hemoglobin Concent 33 g/dL (31-37) Red Cell Distribution Width 16.3 % (11.5-14.5) Platelet Count 217 x10^3/uL (140-400) Neutrophils (%) (Auto) 72 % (31-73) Lymphocytes (%) (Auto) 15 % (24-48) Monocytes (%) (Auto) 8 % (0-9) Eosinophils (%) (Auto) 3 % (0-3) Basophils (%) (Auto) 1 % (0-3) Neutrophils # (Auto) 3.2 x10^3/uL (1.8-7.7) Lymphocytes # (Auto) 0.7 x10^3/uL (1.0-4.8) Monocytes # (Auto) 0.4 x10^3/uL (0.0-1.1) Eosinophils # (Auto) 0.1 x10^3/uL (0.0-0.7) Basophils # (Auto) 0.0 x10^3/uL (0.0-0.2) Sodium Level 137 mmol/L (136-145) Potassium Level 4.0 mmol/L (3.5-5.1) Chloride Level 96 mmol/L (98-107) Carbon Dioxide Level 31 mmol/L (21-32) Anion Gap 10 (6-14) Blood Urea Nitrogen 38 mg/dL (7-20) Creatinine 1.4 mg/dL (0.6-1.0) Estimated GFR (Cockcroft-Gault) 36.4 BUN/Creatinine Ratio 27 (6-20) Glucose Level 94 mg/dL (70-99) Calcium Level 9.3 mg/dL (8.5-10.1) Total Bilirubin 0.5 mg/dL (0.2-1.0) Aspartate Amino Transf (AST/SGOT) 26 U/L (15-37) Alanine Aminotransferase (ALT/SGPT) 16 U/L (14-59) Alkaline Phosphatase 337 U/L (46-116) Ammonia 63 mcmol/L (11-34) Total Protein 5.7 g/dL (6.4-8.2) Albumin 2.0 g/dL (3.4-5.0) Albumin/Globulin Ratio 0.5 (1.0-1.7) Test 06/29/21 06:23 06/29/21 11:15 06/29/21 16:34 06/29/21 20:30 Glucose (Fingerstick) 109 mg/dL (70-99) 170 mg/dL (70-99) 114 mg/dL (70-99) 140 mg/dL (70-99) Test 06/30/21 02:35 06/30/21 07:22 06/30/21 11:48 White Blood Count 5.0 x10^3/uL (4.0-11.0) Red Blood Count 3.99 x10^6/uL (3.50-5.40) Hemoglobin 12.3 g/dL (12.0-15.5) Hematocrit 37.6 % (36.0-47.0) Mean Corpuscular Volume 94 fL (79-100) Mean Corpuscular Hemoglobin 31 pg (25-35) Mean Corpuscular Hemoglobin Concent 33 g/dL (31-37) Red Cell Distribution Width 15.9 % (11.5-14.5) Platelet Count 246 x10^3/uL (140-400) Neutrophils (%) (Auto) 72 % (31-73) Lymphocytes (%) (Auto) 17 % (24-48) Monocytes (%) (Auto) 9 % (0-9) Eosinophils (%) (Auto) 2 % (0-3) Basophils (%) (Auto) 0 % (0-3) Neutrophils # (Auto) 3.6 x10^3/uL (1.8-7.7) Lymphocytes # (Auto) 0.9 x10^3/uL (1.0-4.8) Monocytes # (Auto) 0.4 x10^3/uL (0.0-1.1) Eosinophils # (Auto) 0.1 x10^3/uL (0.0-0.7) Basophils # (Auto) 0.0 x10^3/uL (0.0-0.2) Segmented Neutrophils % 68 % (35-66) Band Neutrophils % 2 % (0-9) Lymphocytes % 17 % (24-48) Monocytes % 12 % (0-10) Eosinophils % 1 % (0-5) Platelet Estimate Adequate (ADEQUATE) Sodium Level 139 mmol/L (136-145) Potassium Level 3.8 mmol/L (3.5-5.1) Chloride Level 96 mmol/L (98-107) Carbon Dioxide Level 33 mmol/L (21-32) Anion Gap 10 (6-14) Blood Urea Nitrogen 35 mg/dL (7-20) Creatinine 1.5 mg/dL (0.6-1.0) Estimated GFR (Cockcroft-Gault) 33.6 BUN/Creatinine Ratio 23 (6-20) Glucose Level 106 mg/dL (70-99) Calcium Level 9.6 mg/dL (8.5-10.1) Magnesium Level 1.4 mg/dL (1.8-2.4) Total Bilirubin 0.6 mg/dL (0.2-1.0) Aspartate Amino Transf (AST/SGOT) 25 U/L (15-37) Alanine Aminotransferase (ALT/SGPT) 20 U/L (14-59) Alkaline Phosphatase 372 U/L (46-116) Ammonia 45 mcmol/L (11-34) Total Protein 6.2 g/dL (6.4-8.2) Albumin 2.2 g/dL (3.4-5.0) Albumin/Globulin Ratio 0.6 (1.0-1.7) Glucose (Fingerstick) 87 mg/dL (70-99) 137 mg/dL (70-99) Laboratory Tests Test 06/29/21 16:34 06/29/21 20:30 06/30/21 02:35 06/30/21 07:22 Glucose (Fingerstick) 114 mg/dL (70-99) 140 mg/dL (70-99) 87 mg/dL (70-99) White Blood Count 5.0 x10^3/uL (4.0-11.0) Red Blood Count 3.99 x10^6/uL (3.50-5.40) Hemoglobin 12.3 g/dL (12.0-15.5) Hematocrit 37.6 % (36.0-47.0) Mean Corpuscular Volume 94 fL (79-100) Mean Corpuscular Hemoglobin 31 pg (25-35) Mean Corpuscular Hemoglobin Concent 33 g/dL (31-37) Red Cell Distribution Width 15.9 % (11.5-14.5) Platelet Count 246 x10^3/uL (140-400) Neutrophils (%) (Auto) 72 % (31-73) Lymphocytes (%) (Auto) 17 % (24-48) Monocytes (%) (Auto) 9 % (0-9) Eosinophils (%) (Auto) 2 % (0-3) Basophils (%) (Auto) 0 % (0-3) Neutrophils # (Auto) 3.6 x10^3/uL (1.8-7.7) Lymphocytes # (Auto) 0.9 x10^3/uL (1.0-4.8) Monocytes # (Auto) 0.4 x10^3/uL (0.0-1.1) Eosinophils # (Auto) 0.1 x10^3/uL (0.0-0.7) Basophils # (Auto) 0.0 x10^3/uL (0.0-0.2) Segmented Neutrophils % 68 % (35-66) Band Neutrophils % 2 % (0-9) Lymphocytes % 17 % (24-48) Monocytes % 12 % (0-10) Eosinophils % 1 % (0-5) Platelet Estimate Adequate (ADEQUATE) Sodium Level 139 mmol/L (136-145) Potassium Level 3.8 mmol/L (3.5-5.1) Chloride Level 96 mmol/L (98-107) Carbon Dioxide Level 33 mmol/L (21-32) Anion Gap 10 (6-14) Blood Urea Nitrogen 35 mg/dL (7-20) Creatinine 1.5 mg/dL (0.6-1.0) Estimated GFR (Cockcroft-Gault) 33.6 BUN/Creatinine Ratio 23 (6-20) Glucose Level 106 mg/dL (70-99) Calcium Level 9.6 mg/dL (8.5-10.1) Magnesium Level 1.4 mg/dL (1.8-2.4) Total Bilirubin 0.6 mg/dL (0.2-1.0) Aspartate Amino Transf (AST/SGOT) 25 U/L (15-37) Alanine Aminotransferase (ALT/SGPT) 20 U/L (14-59) Alkaline Phosphatase 372 U/L (46-116) Ammonia 45 mcmol/L (11-34) Total Protein 6.2 g/dL (6.4-8.2) Albumin 2.2 g/dL (3.4-5.0) Albumin/Globulin Ratio 0.6 (1.0-1.7) Test 06/30/21 11:48 Glucose (Fingerstick) 137 mg/dL (70-99) Brief Hospital Course Ms Real is a 76yo female with PMHx paroxsymal afib, chronic systolic CHF, CAD s/p CABG, HTN, metastatic breast cancer who was admitted for confusion and dysur ia. Consults: Urology and cardiology 06/30: Seen bedside with daughter today. Work with therapy even though she has been very weak trying to transition to the bathtub CT abdomen pelvis with mild right hydronephrosis worsening thoracic lumbar sacral and pelvic and proximal femur osseous metastatic disease. Discussed with daughter and patient bedside she is feeling improved with heart rate has been controlled she does not want any aggressive care including radiation or chemotherapy but would like to follow-up with oncology has been shuffled around with oncologist encouraged her to follow-up with [facility] oncology and to go home with home health with transition to palliative care at the discretion of oncology in the future. She is complaining of a little bit of pain in her hand and her foot which looks like tophaceous gout. Problem list: Acute metabolic Encephalopathy Mild acute on chronic systolic CHF: appears better compensated Ischemic cardiomyopahty 2D echo showed EF at 30-35% PAFIB - prior CVN. 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 [employer] CAD; remote CABGx4, clinically stable Hypertension; controlled Diabetes, II Hyperlipidemia Metastatic breast CA: no treatment currently follows with onc. Reported mets to spine Left lung nodule - oncology f/u outpatient Greater than 30 minutes spent on d/c home with home health Discharge Information Condition at Discharge: Improved Follow Up: Weeks (2) Disposition/Orders: D/C to Home w/ HH Scheduled Apixaban (Eliquis) 5 Mg Tablet, 5 MG PO BID for afib, #60 Prescribed by: KALPANA ALONSO on 02/04/19 0952 Last Action: Continued on 06/27/21507 by KENROY BONILLA RN Cefdinir (Cefdinir) 300 Mg Capsule, 1 CAP PO BID for Pyelo for 3 Days, #6 Prescribed by: CYNTHIA GRADY MD on 06/30/21 1500 Cholecalciferol (Vitamin D3) (Vitamin D) 50,000 Unit Capsule, 50,000 UNIT PO QM for , (Reported) Entered as Reported by: EMMA DAWN RN on 02/03/19 1432 Furosemide (Furosemide) 40 Mg Tablet, 40 MG PO BID for edema, (Reported) Entered as Reported by: KENROY BONILLA RN on 06/27/21 0453 Last Action: Continued on 06/27/21507 by KENROY BONILLA RN Metoprolol Succinate (Toprol Xl) 100 Mg Tab.er.24h, 150 MG PO DAILY for FOR HYPERTENSION, #30 Ref 0 (Reported) Entered as Reported by: LIZETH BOTELLO RN on 02/22/19 1453 Last Action: Continued on 06/27/21 1432 by RODOLFO MARRUFO MD Pantoprazole Sodium (Pantoprazole Sodium ) 40 Mg Tablet.dr, 40 MG PO DAILY for gerd, (Reported) Entered as Reported by: TYRONE TIAN on 12/11/16822 Last Action: Continued on 06/27/21507 by KENROY BONILLA RN Ramipril (Ramipril) 5 Mg Capsule, 1 CAP PO DAILY for heart failure for 30 Days, #30 Ref 0 (Reported) Entered as Reported by: KENROY BONILLA RN on 06/27/215 Last Action: Converted on 06/27/21507 by KENROY BONILLA RN Scheduled PRN Furosemide (Furosemide) 40 Mg Tablet, 1 TAB PO PRN PRN for SEE COMMENTS, #30 Ref 5 (Reported) Entered as Reported by: EMMA DAWN RN on 02/03/19 143 Hydrocodone Bit/Acetaminophen (Hydrocodone-Apap 10-325 ) 1 Each Tablet, 1 TAB PO PRN Q6HRS PRN for PAIN, (Reported) Entered as Reported by: TYRONE TIAN on 12/11/16822 Last Action: Continued on 06/27/211431 by RODOLFO MARRUFO MD Oxycodone Hcl (Oxycodone Hcl Immed.release ) 30 Mg Tablet, 30 MG PO PRN Q6HRS PRN for SEVERE PAIN 7-10 for 30 Days, #120 Prescribed by: CYNTHIA GRADY MD on 06/30/21 1500 Discontinued Medications Tamoxifen Citrate (Tamoxifen Citrate) 20 Mg Tablet, 1 TAB PO DAILY for estrogen for 30 Days, #30 Ref 0 (Reported) Entered as Reported by: EMMA DAWN RN on 02/03/19 1432 Justicifation of Admission Dx: Justifications for Admission: Justification of Admission Dx: Yes CYNTHIA GRADY MD June 30, 2021 15:23
--- NOTE | 2021-06-30 16:05 | NUR ---
SS following up with discharge planning. SS reviewed pt chart and discussed with pt RN. Pt is currently on room air. COVID19 negative. PT/OT recommended home with home healthcare. Pt wanting palliative home healthcare. SS met with pt and discussed. Pt agreeable to [facility], ; fax [phone]. Discharge orders and referral sent to [facility]. Pt's RN notified.
== END 2021-06-30 16:32 | disposition home health service (06) | DRG 291 ==
LOC: ER 17:48 → 6 SOUTH 22:42
PROVIDERS: ADMIT Internal Medicine; ATTEND Internal Medicine
DX: I13.0 Hypertensive heart and chronic kidney disease with heart failure and stage 1 through stage 4 chronic kidney disease, or unspecified chronic kidney disease (principal); I50.43 Acute on chronic combined systolic (congestive) and diastolic (congestive) heart failure; G93.41 Metabolic encephalopathy; N17.9 Acute kidney failure, unspecified; C79.51 Secondary malignant neoplasm of bone; I47.2 Ventricular tachycardia; N13.6 Pyonephrosis; N12 Tubulo-interstitial nephritis, not specified as acute or chronic; I42.9 Cardiomyopathy, unspecified; C50.919 Malignant neoplasm of unspecified site of unspecified female breast; E11.22 Type 2 diabetes mellitus with diabetic chronic kidney disease; E78.00 Pure hypercholesterolemia, unspecified; E78.5 Hyperlipidemia, unspecified; E83.42 Hypomagnesemia; F22 Delusional disorders; I25.10 Atherosclerotic heart disease of native coronary artery without angina pectoris; I48.0 Paroxysmal atrial fibrillation; J44.9 Chronic obstructive pulmonary disease, unspecified; N18.32 Chronic kidney disease, stage 3b; Z83.3 Family history of diabetes mellitus; Z86.718 Personal history of other venous thrombosis and embolism; Z87.891 Personal history of nicotine dependence; Z90.12 Acquired absence of left breast and nipple; Z95.0 Presence of cardiac pacemaker; Z95.1 Presence of aortocoronary bypass graft; K21.9 Gastro-esophageal reflux disease without esophagitis; Z88.8 Allergy status to other drugs, medicaments and biological substances
CPT/HCPCS: 36415; 51798; 70450; 71045; 74176; 76700; 80048; 80053; 80061; 81001; 82140; 82607; 82962; 83036; 83735; 84100; 84443; 84484; 85007; 85025; 87086; 87426; 93005; 93306; 93308; 96361; 96374; J0696; J1815; J3475; J7030; 97116-GP; 97535-GO; 99285-25; C8929; G0378